=== PATIENT | male | born 1935 | race Caucasian/White ===

== ENCOUNTER 2022-07-22 00:43 | Outpatient (CLI) | payer MEDICARE, OTHER | END 2022-07-22 00:44 | disposition critical access hospital (66) | LOC: EMS 00:43 | DX: R53.1 Weakness (principal); R29.898 Other symptoms and signs involving the musculoskeletal system; Z74.09 Other reduced mobility | CPT/HCPCS: A0425; A0429 ==

== ENCOUNTER 2022-07-22 00:56 | Emergency (ER) | payer MEDICARE, OTHER ==
[2022-07-22] MEDS ORDERED: iohexoL-300 100 ML VIAL ONE (01:05)
[2022-07-22 01:11] LABS: BASOPHILS % (AUTO) 0.5 %; EOSINOPHILS # (AUTO) 0.2 10^3/uL (0.0-0.7); EOSINOPHILS % (AUTO) 2.5 %; HCT - HEMATOCRIT 34.5 % (42.0-52.0); HGB - HEMOGLOBIN 11.5 g/dL (14.0-18.0); LYMPHOCYTES # (AUTO) 1.7 10^3/uL (1.5-3.5); LYMPHOCYTES % (AUTO) 19.9 %; MEAN CORPUSCULAR HEMOGLOBIN 31.4 pg (27.0-31.0); MEAN CORPUSCULAR HGB CONC 33.3 g/dL (32.0-36.0); MEAN CORPUSCULAR VOLUME 94.3 fL (80.0-94.0); MEAN PLATELET VOLUME 13.4 fL (7.4-11.4); MONOCYTES % (AUTO) 11.9 %; NEUTROPHILS # (AUTO) 5.6 10^3/uL (1.5-6.6); NEUTROPHILS % (AUTO) 64.9 %; PLT - PLATELET COUNT 130 10^3/uL (130-450); RED BLOOD COUNT 3.66 10^6/uL (4.70-6.10); RED CELL DISTRIBUTION WIDTH 13.1 % (12.0-15.0); WHITE BLOOD COUNT 8.7 x10^3/uL (4.8-10.8)
--- OUTSIDE RECORDS SUMMARY | 2022-07-22 01:18 | EXTERNAL MEDICAL SUMMARY RPT | Continuity of Care Document ---
:1935 Author Organization [facility] Address [address] [place] [address] Phone Care Team Providers Name Role Phone Jean Miles Unavailable Unavailable Allergies and Intolerances date description facility type (no date) acetaminophen [facility] (unknown) (no date) hydrocodone [facility] (unknown) Encounters No information. Functional Status No information. Immunizations No information. Medications date description facility 2022-05-11 00:00 Metformin [facility] 2022-05-11 00:00 Clobetasol [facility] 2022-05-28 00:00 [facility] 2022-05-09 00:00 [facility] 2022-05-11 00:00 [facility] Problems date description facility 2022-05-09 00:00 Dizziness [facility] 2022-05-29 08:54 Monoclonal gammopathy [facility] 2022-05-29 09:42 Monoclonal gammopathy [facility] Procedures No information. Results/Labs test date author facility value unit interpret ation Result panel 1 (unknown) (no date) ([facility] Result panel 2 (unknown) (no date) (unknown[facility]) Result panel 3 (unknown) (no date) (unknown[facility]) Result panel 4 (unknown) (no date) (unknown[facility]) Result panel 5 (unknown) (no date) (unknown[facility]) Result panel 6 (unknown) (no date) (unknown[facility]) Result panel 7 (unknown) (no date) (unknown[facility]) Result panel 8 (unknown) (no date) (unknown[facility]) Result panel 9 (unknown) (no date) (unknown[facility]) Result panel 10 (unknown) (no date) (unknown[facility]) Result panel 11 (unknown) (no date) (unknown[facility]) Result panel 12 (unknown) (no date) (unknown[facility]) Result panel 13 (unknown) (no date) (unknown[facility]) Result panel 14 (unknown) (no date) (unknown[facility]) Result panel 15 (unknown) (no date) (unknown[facility]) Result panel 16 (unknown) (no date) (unknown[facility]) Result panel 17 (unknown) (no date) (unknown[facility]) Result panel 18 (unknown) (no date) (unknown[facility]) Result panel 19 (unknown) (no date) (unknown[facility]) Result panel 20 (unknown) (no date) (unknown[facility]) Result panel 21 (unknown) (no date) (unknown[facility]) Result panel 22 (unknown) (no date) (unknown[facility]) Result panel 23 (unknown) (no date) (unknown[facility]) Result panel 24 (unknown) (no date) (unknown[facility]) Result panel 25 (unknown) (no date) (unknown[facility]) Result panel 26 (unknown) (no date) (unknown[facility]) Result panel 27 (unknown) (no date) (unknown[facility]) Result panel 28 (unknown) (no date) (unknown[facility]) Result panel 29 (unknown) (no date) (unknown[facility] Result panel 30 (unknown) (no (unknown) (unknown) (no value) (units (unk nown) date) unknown) (unknown) (no (unknown) (unknown) <Electronically (units (unknown) date) signed by Heron unknown) MD Vanessa> (unknown) (no (unknown) (unknown) (DME) FreeStyle (units (unknown) date) Lite Strips Strip unknown) (unknown) (no (unknown) (unknown) (DME) pen needle, (units (unknown) date) diabetic [Easy unknown) Comfort Pen [place]] 31 gauge x 5/16' needle (unknown) (no (unknown) (unknown) (PreserVision (units ( unknown) date) AREDS) unknown) (unknown) (no (unknown) (unknown) 0.4 mg PO BID (units ( unknown) date) unknown) (unknown) (no (unknown) (unknown) 05/09/22 0956 (units ( unknown) date) unknown) (unknown) (no (unknown) (unknown) 05/09/22 (units (unkno wn) date) unknown) (unknown) (no (unknown) (unknown) 05:52 (units (unkno wn) date) unknown) (unknown) (no (unknown) (unknown) 1,000 mcg PO Q DAY (units (unknown) date) Qty: 0 unknown) (unknown) (no (unknown) (unknown) 1,000 mcg (units (unkn own) date) tablet,extended unknown) release (unknown) (no (unknown) (unknown) 1,000 mg PO BID (units (unknown) date) unknown) (unknown) (no (unknown) (unknown) 10 mg PO DAILY (units (unknown) date) Qty: 90 3RF unknown) (unknown) (no (unknown) (unknown) 100 mg PO DAILY (units (unknown) date) Qty: 90 0RF unknown) (unknown) (no (unknown) (unknown) 20 mg PO DAILY (units (unknown) date) Qty: 90 3RF unknown) (unknown) (no (unknown) (unknown) 25 mg PO BID (units (u nknown) date) unknown) (unknown) (no (unknown) (unknown) 25 mg PO QID PRN (units (unknown) date) (Reason: dizziness) unknown) Qty: 30 0RF (unknown) (no (unknown) (unknown) 4 mg PO Q8H PRN (units (unknown) date) (Reason: SINUS unknown) DRAINAGE) (unknown) (no (unknown) (unknown) 5 mg PO DAILY Qty: (units (unknown) date) 90 3RF unknown) (unknown) (no (unknown) (unknown) 516' (Easy (units (un known) date) Comfort Pen unknown) [place]) (unknown) (no (unknown) (unknown) 7 unit SUBCUT QAM (units (unknown) date) Qty: 15 3RF unknown) (unknown) (no (unknown) (unknown) 81 mg PO DAILY (units (unknown) date) unknown) (unknown) (no (unknown) (unknown) Acne (units (unkno wn) date) unknown) (unknown) (no (unknown) (unknown) Activity (units (unkno wn) date) Restrictions/Additi unknown) onal Instructions: (unknown) (no (unknown) (unknown) Age/Sex: 86 / M (units (unknown) date) unknown) (unknown) (no (unknown) (unknown) Allergic rhinitis (units (unknown) date) unknown) (unknown) (no (unknown) (unknown) Allergies (units (unkn own) date) unknown) (unknown) (no (unknown) (unknown) Allergy/AdvReac (units (unknown) date) Type Severity unknown) Reaction Status Date / Time (unknown) (no (unknown) (unknown) Auscultation: (units ( unknown) date) clear to unknown) auscultation bilaterally (unknown) (no (unknown) (unknown) BPH w urinary (units ( unknown) date) obs/LUTS unknown) (unknown) (no (unknown) (unknown) Back/Spine/Pelvis (units (unknown) date) unknown) (unknown) (no (unknown) (unknown) Back: normal to (units (unknown) date) inspection unknown) (unknown) (no (unknown) (unknown) Blood Pressure (units (unknown) date) 149/93 H 05/09/22 unknown) 05:52 (unknown) (no (unknown) (unknown) Blood Pressure (units (unknown) date) 149/93 H unknown) (unknown) (no (unknown) (unknown) Cardio (units (unkno wn) date) unknown) (unknown) (no (unknown) (unknown) Chest (units (unkno wn) date) unknown) (unknown) (no (unknown) (unknown) Chest: normal (units ( unknown) date) inspection of the unknown) chest (unknown) (no (unknown) (unknown) Chicken pox (units (un known) date) unknown) (unknown) (no (unknown) (unknown) Chief Complaint: (units (unknown) date) Dizziness unknown) (unknown) (no (unknown) (unknown) Chronic back pain (units (unknown) date) (-2017) unknown) (unknown) (no (unknown) (unknown) Chronic kidney (units (unknown) date) disease, stage 3b unknown) (unknown) (no (unknown) (unknown) Clinical (units (unkno wn) date) Impression: unknown) (unknown) (no (unknown) (unknown) Conjunctivae: (units ( unknown) date) conjunctivae normal unknown) (unknown) (no (unknown) (unknown) Const (units (unkno wn) date) unknown) (unknown) (no (unknown) (unknown) Continue current (units (unknown) date) medications. unknown) (unknown) (no (unknown) (unknown) Coordination: (units ( unknown) date) [id number] test unknown) normal (unknown) (no (unknown) (unknown) Coronary artery (units (unknown) date) disease unknown) (unknown) (no (unknown) (unknown) Course Narrative: (units (unknown) date) unknown) (unknown) (no (unknown) (unknown) Course (units (unkno wn) date) unknown) (unknown) (no (unknown) (unknown) Cranial Nerves: (units (unknown) date) CN's II-XI intact unknown) bilaterally (unknown) (no (unknown) (unknown) : 1935 (units (unknown) date) Acct:[id number] unknown) (unknown) (no (unknown) (unknown) Date of Service: (units (unknown) date) 05/09/22 unknown) (unknown) (no (unknown) (unknown) 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 unknown) (unknown) (no (unknown) (unknown) Departure (units (unkn own) date) unknown) (unknown) (no (unknown) (unknown) Diabetes mellitus (units (unknown) date) () unknown) (unknown) (no (unknown) (unknown) Discharge Plan (units (unknown) date) unknown) (unknown) (no (unknown) (unknown) Discontinued (units (u nknown) date) Medications unknown) (unknown) (no (unknown) (unknown) Dizziness (units (unkn own) date) unknown) (unknown) (no (unknown) (unknown) Documented By: OW (units (unknown) date) unknown) (unknown) (no (unknown) (unknown) EOM: EOM intact (units (unknown) date) bilaterally unknown) (unknown) (no (unknown) (unknown) ER Physician: (units ( unknown) date) Heron Mendez MD unknown) (unknown) (no (unknown) (unknown) Ears: hearing (units ( unknown) date) grossly normal unknown) bilaterally and TM's normal bilaterally (unknown) (no (unknown) (unknown) Effort + (units (unkno wn) date) Inspection: normal unknown) respiratory effort (unknown) (no (unknown) (unknown) Emergency Report (units (unknown) date) unknown) (unknown) (no (unknown) (unknown) Essential (units (unkn own) date) hypertension unknown) (unknown) (no (unknown) (unknown) Exam (units (unkno wn) date) unknown) (unknown) (no (unknown) (unknown) Extrem (units (unkno wn) date) unknown) (unknown) (no (unknown) (unknown) Eyes (units (unkno wn) date) unknown) (unknown) (no (unknown) (unknown) Face and sinus: (units (unknown) date) normal facial exam unknown) and sinuses nontender (unknown) (no (unknown) (unknown) GERD (units (unkno wn) date) (gastroesophageal unknown) reflux disease) (unknown) (no (unknown) (unknown) General (units (unkno wn) date) unknown) (unknown) (no (unknown) (unknown) General: Yes (units (u nknown) date) appearance normal, unknown) both eyes and all related structures (unknown) (no (unknown) (unknown) General: (units (unkno wn) date) cooperative, unknown) healthy appearing and comfortable (unknown) (no (unknown) (unknown) General: no rashes (units (unknown) date) or lesions noted unknown) (unknown) (no (unknown) (unknown) General: normal to (units (unknown) date) inspection unknown) (unknown) (no (unknown) (unknown) General: patient (units (unknown) date) alert, patient unknown) awake and patient oriented x3 (unknown) (no (unknown) (unknown) HENMT (units (o wn) date) unknown) (unknown) (no (unknown) (unknown) HPI - Dizziness (units (unknown) date) unknown) (unknown) (no (unknown) (unknown) HPI Narrative: (units (unknown) date) unknown) (unknown) (no (unknown) (unknown) He can stand and (units (unknown) date) walk. He is no unknown) nausea vomiting. He is no visual changes. He (unknown) (no (unknown) (unknown) He will be (units (n) date) discharged home unknown) with meclizine. (unknown) (no (unknown) (unknown) Head: normal to (units (unknown) date) inspection, unknown) normocephalic and atraumatic (unknown) (no (unknown) (unknown) Heart Sounds: S1 (units (unknown) date) normal, S2 normal unknown) and no murmurs (unknown) (no (unknown) (unknown) History of Present (units (unknown) date) Illness unknown) (unknown) (no (unknown) (unknown) History of (units (unk nown) date) cataract removal unknown) with insertion of prosthetic lens () (unknown) (no (unknown) (unknown) History of colon (units (unknown) date) polyps unknown) (unknown) (no (unknown) (unknown) Home Medications (units (unknown) date) unknown) (unknown) (no (unknown) (unknown) If symptoms (units (un known) date) worsen, follow-up unknown) with your doctor or return here. (unknown) (no (unknown) (unknown) Initial Vital (units ( unknown) date) Signs unknown) (unknown) (no (unknown) (unknown) Initial Vital (units ( unknown) date) Signs: unknown) (unknown) (no (unknown) (unknown) Instructions: DI (units (unknown) date) for unknown) Dizziness-Nonvertig o (unknown) (no (unknown) (unknown) [facility] (units (unknown) date) [address] unknown) [place] [address] (unknown) (no (unknown) (unknown) Jean Miles V, (units (unknown) date) [Primary Care unknown) Provider] (unknown) (no (unknown) (unknown) Lantus Solostar (units (unknown) date) U-100 Insulin 100 unknown) unit/mL (3 mL) insulin pen (unknown) (no (unknown) (unknown) Last Admin: (units (un known) date) 05/09/22 06:06 unknown) Dose: 25 mg (unknown) (no (unknown) (unknown) Limitations: no (units (unknown) date) limitations unknown) (unknown) (no (unknown) (unknown) Lite Strips) (units (u nknown) date) unknown) (unknown) (no (unknown) (unknown) [id number] (units (unk nown) date) unknown) (unknown) (no (unknown) (unknown) Measles (units (unkno wn) date) unknown) (unknown) (no (unknown) (unknown) Meclizine HCl (units ( unknown) date) (Meclizine Hcl 12.5 unknown) Mg Tablet) 25 mg PO NOW ONE (unknown) (no (unknown) (unknown) Meclizine every (units (unknown) date) 6-8 hours as needed unknown) for dizziness. (unknown) (no (unknown) (unknown) Medical History (units (unknown) date) (Reviewed 05/09/22 unknown) @ 09:51 by Heron Mendez MD) (unknown) (no (unknown) (unknown) Medication (units (unk nown) date) Instructions unknown) Recorded Confirmed (unknown) (no (unknown) (unknown) Medication (units (unk nown) date) Instructions unknown) Recorded (unknown) (no (unknown) (unknown) Mental Status: (units (unknown) date) mental status unknown) grossly normal (unknown) (no (unknown) (unknown) Mixed (units (unkno wn) date) hyperlipidemia unknown) (unknown) (no (unknown) (unknown) Mode of arrival: (units (unknown) date) Ambulatory unknown) (unknown) (no (unknown) (unknown) Motor: muscle tone (units (unknown) date) normal throughout unknown) (unknown) (no (unknown) (unknown) Mouth: oral (units (un known) date) mucosae normal unknown) (unknown) (no (unknown) (unknown) Mumps (units (unkno wn) date) unknown) (unknown) (no (unknown) (unknown) Neck (units (unkno wn) date) unknown) (unknown) (no (unknown) (unknown) Neck: normal (units (u nknown) date) visual inspection unknown) and No JVD (unknown) (no (unknown) (unknown) Neuro (units (unkno wn) date) unknown) (unknown) (no (unknown) (unknown) New (units (unkno wn) date) unknown) (unknown) (no (unknown) (unknown) No Action (units (unkn own) date) unknown) (unknown) (no (unknown) (unknown) Nose: external (units (unknown) date) nose normal and unknown) nares normal (unknown) (no (unknown) (unknown) Ordered: (units (unkno wn) date) unknown) (unknown) (no (unknown) (unknown) Orders (units (unkno wn) date) unknown) (unknown) (no (unknown) (unknown) Oxygen Delivery (units (unknown) date) Method 05/09/22 unknown) 05:52 (unknown) (no (unknown) (unknown) Oxygen Delivery (units (unknown) date) Method Room Air unknown) (unknown) (no (unknown) (unknown) PO (units (unkno wn) date) unknown) (unknown) (no (unknown) (unknown) Palpation: normal (units (unknown) date) PMI unknown) (unknown) (no (unknown) (unknown) Patient (units (unkno wn) date) Disposition: Home unknown) (unknown) (no (unknown) (unknown) Patient History (units (unknown) date) unknown) (unknown) (no (unknown) (unknown) Patient: (units (unkno wn) date) Konrad Barrett unknown) MR#: (unknown) (no (unknown) (unknown) Prescriptions: (units (unknown) date) unknown) (unknown) (no (unknown) (unknown) PreserVision AREDS (units (unknown) date) [phone] unknown) [id number] Capsule (unknown) (no (unknown) (unknown) Previous Rx's (units ( unknown) date) unknown) (unknown) (no (unknown) (unknown) 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 (unknown) (no (unknown) (unknown) Psych (units (unkno wn) date) unknown) (unknown) (no (unknown) (unknown) Pulse Oximetry 98 (units (unknown) date) 05/09/22 05:52 unknown) (unknown) (no (unknown) (unknown) Pulse Oximetry 98 (units (unknown) date) unknown) (unknown) (no (unknown) (unknown) Pulse Rate 57 L (units (unknown) date) 05/09/22 05:52 unknown) (unknown) (no (unknown) (unknown) Pulse Rate 57 L (units (unknown) date) unknown) (unknown) (no (unknown) (unknown) Pupils: PERRL (units ( unknown) date) unknown) (unknown) (no (unknown) (unknown) ROS Unobtainable: (units (unknown) date) All systems unknown) reviewed + are unremarkable except as noted in HPI (unknown) (no (unknown) (unknown) Rate: regular rate (units (unknown) date) unknown) (unknown) (no (unknown) (unknown) Recurrent (units (unkn own) date) sinusitis unknown) (unknown) (no (unknown) (unknown) Referrals: (units (unk nown) date) unknown) (unknown) (no (unknown) (unknown) Related Data (units (u nknown) date) unknown) (unknown) (no (unknown) (unknown) Resp (units (unkno wn) date) unknown) (unknown) (no (unknown) (unknown) Respiratory Rate (units (unknown) date) 20 05/09/22 05:52 unknown) (unknown) (no (unknown) (unknown) Respiratory Rate (units (unknown) date) 20 unknown) (unknown) (no (unknown) (unknown) Review of Systems (units (unknown) date) unknown) (unknown) (no (unknown) (unknown) Rhythm: regular (units (unknown) date) rhythm unknown) (unknown) (no (unknown) (unknown) Rx Instructions: (units (unknown) date) unknown) (unknown) (no (unknown) (unknown) See Rx (units (unkno wn) date) Instructions .Route unknown) Qty: 100 1RF (unknown) (no (unknown) (unknown) See Rx (units (unkno wn) date) Instructions .Route unknown) Qty: 100 3RF (unknown) (no (unknown) (unknown) Sensory Exam: no (units (unknown) date) sensory deficits unknown) noted (unknown) (no (unknown) (unknown) Signed By: (units (unk nown) date) unknown) (unknown) (no (unknown) (unknown) Skin cancer (units (un known) date) (-2015) unknown) (unknown) (no (unknown) (unknown) Skin (units (unkno wn) date) unknown) (unknown) (no (unknown) (unknown) Smoking Status: (units (unknown) date) Former smoker unknown) (unknown) (no (unknown) (unknown) Social History (units (unknown) date) (Reviewed 05/09/22 unknown) @ 09:51 by Heron Mendez MD) (unknown) (no (unknown) (unknown) Solostar U-100 (units (unknown) date) Insulin) unknown) (unknown) (no (unknown) (unknown) Source: patient (units (unknown) date) unknown) (unknown) (no (unknown) (unknown) Speech: speech (units (unknown) date) normal unknown) (unknown) (no (unknown) (unknown) Stand Alone Forms: (units (unknown) date) Patient Portal/API unknown) (unknown) (no (unknown) (unknown) Stated Complaint: (units (unknown) date) vertigo unknown) (unknown) (no (unknown) (unknown) Stop: 05/09/22 (units (unknown) date) 06:04 unknown) (unknown) (no (unknown) (unknown) Substance Use (units ( unknown) date) Type: does not use unknown) (unknown) (no (unknown) (unknown) Surgical History (units (unknown) date) (Reviewed 05/09/22 unknown) @ 09:51 by Heron Mendez MD) (unknown) (no (unknown) (unknown) Symptoms have (units ( unknown) date) resolved with a unknown) single dose of meclizine. He is now asymptomatic. (unknown) (no (unknown) (unknown) Temperature 97.6 F (units (unknown) date) 05/09/22 05:52 unknown) (unknown) (no (unknown) (unknown) Temperature 97.6 F (units (unknown) date) unknown) (unknown) (no (unknown) (unknown) The patient did an (units (unknown) date) aggressive ear unknown) cleaning 4 days ago. 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 (unknown) (no (unknown) (unknown) Vital Signs - 8 hr (units (unknown) date) unknown) (unknown) (no (unknown) (unknown) Vital Signs (units (un known) date) unknown) (unknown) (no (unknown) (unknown) Vital signs: (units (u nknown) date) unknown) (unknown) (no (unknown) (unknown) acetaminophen (units ( unknown) date) [From Vicodin] unknown) AdvReac Severe ITCHING Verified 05/09/22 05:57 (unknown) (no (unknown) (unknown) alcohol intake (units (unknown) date) frequency: 0-2 unknown) drinks per day (unknown) (no (unknown) (unknown) amlodipine 10 mg (units (unknown) date) tablet 10 mg PO unknown) DAILY #90 tabs 12/18/21 (unknown) (no (unknown) (unknown) amlodipine 10 mg (units (unknown) date) tablet unknown) (unknown) (no (unknown) (unknown) and below (units (unkn own) date) unknown) (unknown) (no (unknown) (unknown) aspirin 81 mg (units ( unknown) date) tablet,delayed 81 unknown) mg PO DAILY 11/11/17 04/11/22 (unknown) (no (unknown) (unknown) aspirin (units (unkno wn) date) [Aspir-Low] 81 mg unknown) Tablet,Delayed Release (Dr/Ec) (unknown) (no (unknown) (unknown) bleeding from his (units (unknown) date) ears. He denies unknown) sinus congestion, rhinorrhea, or sore throat. (unknown) (no (unknown) (unknown) blood sugar (units (un known) date) diagnostic unknown) (FreeStyle #100 ea 08/23/21 (unknown) (no (unknown) (unknown) carvedilol 25 mg (units (unknown) date) tablet 25 mg PO BID unknown) 12/08/21 04/11/22 (unknown) (no (unknown) (unknown) carvedilol 25 mg (units (unknown) date) tablet unknown) (unknown) (no (unknown) (unknown) chlorpheniramine (units (unknown) date) maleate 4 mg 4 mg unknown) PO Q8H PRN SINUS DRAINAGE 05/20/18 04/11/22 (unknown) (no (unknown) (unknown) chlorpheniramine (units (unknown) date) maleate unknown) [Chlor-Trimeton] 4 mg Tablet (unknown) (no (unknown) (unknown) cyanocobalamin (units (unknown) date) (vitamin B-12) unknown) 1,000 MCG tablet extended release (unknown) (no (unknown) (unknown) cyanocobalamin (units (unknown) date) (vitamin B-12) unknown) 1,000 mcg PO Q DAY ##0 05/17/16 04/11/22 (unknown) (no (unknown) (unknown) daily (units (unkno wn) date) unknown) (unknown) (no (unknown) (unknown) household members: (units (unknown) date) spouse unknown) (unknown) (no (unknown) (unknown) hydrocodone [From (units (unknown) date) Vicodin] AdvReac unknown) Severe ITCHING Verified 05/09/22 05:57 (unknown) (no (unknown) (unknown) insulin glargine (units (unknown) date) 100 unit/mL (3 7 unknown) unit (0.07 mL) SUBCUT QAM #15 mL 08/23/21 (unknown) (no (unknown) (unknown) is no confusion. (units (unknown) date) No focal weakness unknown) or numbness. He denies chest pain or (unknown) (no (unknown) (unknown) is no other (units (un known) date) symptoms unknown) (unknown) (no (unknown) (unknown) losartan 100 mg (units (unknown) date) tablet (Cozaar) 100 unknown) mg PO DAILY #90 tabs 03/05/22 (unknown) (no (unknown) (unknown) losartan [Cozaar] (units (unknown) date) 100 mg tablet unknown) (unknown) (no (unknown) (unknown) mL) subcutaneous (units (unknown) date) pen (Lantus unknown) (unknown) (no (unknown) (unknown) meclizine 25 mg (units (unknown) date) tablet 25 mg PO QID unknown) PRN dizziness #30 tabs 05/09/22 (unknown) (no (unknown) (unknown) meclizine 25 mg (units (unknown) date) tablet unknown) (unknown) (no (unknown) (unknown) metformin 1,000 mg (units (unknown) date) tablet 1,000 mg PO unknown) BID 12/08/21 04/11/22 (unknown) (no (unknown) (unknown) metformin 1,000 mg (units (unknown) date) tablet unknown) (unknown) (no (unknown) (unknown) night, after (units (u nknown) date) cleaning his ears. unknown) He is no ear pain. There is no drainage or (unknown) (no (unknown) (unknown) omeprazole 20 mg (units (unknown) date) capsule,delayed 20 unknown) mg PO DAILY #90 caps 12/11/21 (unknown) (no (unknown) (unknown) omeprazole 20 mg (units (unknown) date) capsule,delayed unknown) release(DR/EC) (unknown) (no (unknown) (unknown) palpitations. No (units (unknown) date) chronic issues with unknown) dizziness. He denies fever or chills. He (unknown) (no (unknown) (unknown) pen needle, (units (un known) date) diabetic 31 gauge x unknown) #100 ea 01/02/22 (unknown) (no (unknown) (unknown) release (units (unkno wn) date) (Aspir-Low) unknown) (unknown) (no (unknown) (unknown) release (units (unkno wn) date) unknown) (unknown) (no (unknown) (unknown) rosuvastatin 5 mg (units (unknown) date) tablet (Crestor) 5 unknown) mg PO DAILY #90 tabs 12/08/21 (unknown) (no (unknown) (unknown) rosuvastatin (units (u nknown) date) [Crestor] 5 mg unknown) tablet (unknown) (no (unknown) (unknown) tablet (units (unkno wn) date) (Chlor-Trimeton) unknown) (unknown) (no (unknown) (unknown) tamsulosin 0.4 mg (units (unknown) date) capsule (Flomax) unknown) 0.4 mg PO BID 11/11/17 04/11/22 (unknown) (no (unknown) (unknown) tamsulosin (units (unk nown) date) [Flomax] 0.4 mg unknown) Capsule,Extended Release 24hr (unknown) (no (unknown) (unknown) twice daily (units (un known) date) unknown) (unknown) (no (unknown) (unknown) unit-226 mg-200 (units (unknown) date) unit capsule unknown) (unknown) (no (unknown) (unknown) vitamins (units (unkno wn) date) A,C,V-odmb-vimyyd unknown) 14,320 cap PO 11/29/21 04/11/22 Result panel 31 (unknown) (no (unknown) (unknown) (no value) (units (unk nown) date) unknown) (unknown) (no (unknown) (unknown) / (units (unkno wn) date) unknown) (unknown) (no (unknown) (unknown) 0 (units (unkno wn) date) unknown) (unknown) (no (unknown) (unknown) 05/10/22 (units (unkno wn) date) unknown) (unknown) (no (unknown) (unknown) 04/06/22 (units (unkno wn) date) unknown) (unknown) (no (unknown) (unknown) 06/27 (units (unkno wn) date) unknown) (unknown) (no (unknown) (unknown) (units (unkno wn) date) unknown) (unknown) (no (unknown) (unknown) AWV 12/08/2021 (units (u nknown) date) unknown) (unknown) (no (unknown) (unknown) Acne (units (unkno wn) date) unknown) (unknown) (no (unknown) (unknown) Age/Sex: 86 / M (units (unknown) date) Date of Service: unknown) (unknown) (no (unknown) (unknown) Alanine (units (unkno wn) date) Aminotransferase unknown) (ALT/SGPT) 16 IU/L (<50) (unknown) (no (unknown) (unknown) Albumin 3.8 g/dL (units (unknown) date) (3.5-5.0) 04/06/22 unknown) (unknown) (no (unknown) (unknown) Albumin/Globulin (units (unknown) date) Ratio 1.4 (1.0-2.8) unknown) 04/06/22 (unknown) (no (unknown) (unknown) Alkaline (units (unkno wn) date) Phosphatase 66 U/L unknown) (38-126) 04/06/22 (unknown) (no (unknown) (unknown) All systems (units (un known) date) reviewed + are unknown) unremarkable except as noted in HPI and below (unknown) (no (unknown) (unknown) Allergic rhinitis (units (unknown) date) unknown) (unknown) (no (unknown) (unknown) Allergic rhinitis: (units (unknown) date) The patient states unknown) symptoms are controlled with nasal saline. (unknown) (no (unknown) (unknown) Allergies (units (unkn own) date) unknown) (unknown) (no (unknown) (unknown) [place], [place] (units ( unknown) date) [id number] unknown) (unknown) (no (unknown) (unknown) Aspartate Amino (units (unknown) date) Transf (AST/SGOT) unknown) 19 IU/L (17-59) 04/06/ (unknown) (no (unknown) (unknown) Attending Dr: (units ( unknown) date) Jean Miles MD unknown) (unknown) (no (unknown) (unknown) BPH w urinary (units ( unknown) date) obs/LUTS unknown) (unknown) (no (unknown) (unknown) BUN/Creatinine (units (unknown) date) Ratio 17.6 (6-22) unknown) 04/06/22 (unknown) (no (unknown) (unknown) Basophils (%) (units ( unknown) date) (Auto) 0.5 % (0-2) unknown) 11/20/21 (unknown) (no (unknown) (unknown) Benign prostatic (units (unknown) date) hyperplasia: The unknown) patient reports symptoms are controlled on (unknown) (no (unknown) (unknown) Blood Urea (units (unk nown) date) Nitrogen 24 mg/dL unknown) (9-20) H 04/06/22 (unknown) (no (unknown) (unknown) CARDIOVASCULAR: (units (unknown) date) Regular rate and unknown) rhythm with occasional ectopy without murmurs, (unknown) (no (unknown) (unknown) Calcium Level 8.7 (units (unknown) date) mg/dL (8.4-10.2) unknown) 04/06/22 (unknown) (no (unknown) (unknown) Carbon Dioxide (units (unknown) date) Level 24 mmol/L unknown) (22-32) 04/06/22 (unknown) (no (unknown) (unknown) Chicken pox (units (un known) date) unknown) (unknown) (no (unknown) (unknown) Chief Complaint (units (unknown) date) unknown) (unknown) (no (unknown) (unknown) Chief Complaint: (units (unknown) date) ER followup unknown) (unknown) (no (unknown) (unknown) Chloride Level 105 (units (unknown) date) mmol/L (98-107) unknown) 04/06/22 (unknown) (no (unknown) (unknown) Chronic back pain (units (unknown) date) (-2018) unknown) (unknown) (no (unknown) (unknown) Chronic kidney (units (unknown) date) disease, stage 3b unknown) (unknown) (no (unknown) (unknown) Chronic kidney (units (unknown) date) disease, stage 3b: unknown) The patient has long-standing stable chronic (unknown) (no (unknown) (unknown) [facility] (units (unk nown) date) Results- Last: unknown) (unknown) (no (unknown) (unknown) Const (units (unkno wn) date) unknown) (unknown) (no (unknown) (unknown) Coronary artery (units (unknown) date) disease unknown) (unknown) (no (unknown) (unknown) Coronary artery (units (unknown) date) disease: The unknown) patient presents for follow-up of coronary artery (unknown) (no (unknown) (unknown) Course Narrative: (units (unknown) date) unknown) (unknown) (no (unknown) (unknown) Creatinine 1.36 (units (unknown) date) mg/dL (0.66-1.25) H unknown) 04/06/22 (unknown) (no (unknown) (unknown) DERMATOLOGIC: No (units (unknown) date) rashes or skin unknown) lesions. 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 unknown) (unknown) (no (unknown) (unknown) Details: (units (unkno wn) date) unknown) (unknown) (no (unknown) (unknown) Diabetes mellitus (units (unknown) date) () unknown) (unknown) (no (unknown) (unknown) Diabetes mellitus: (units (unknown) date) The patient states unknown) he is doing well. Complications of (unknown) (no (unknown) (unknown) Documented By: (units (unknown) date) Jean Miles MD unknown) 05/11/22 0654 (unknown) (no (unknown) (unknown) Draft (units (unkno wn) date) unknown) (unknown) (no (unknown) (unknown) ENT: Mucous (units (un known) date) membranes pink and unknown) moist. (unknown) (no (unknown) (unknown) ER followup: The (units (unknown) date) patient was seen at [facility] on 05/09/2021, presenting (unknown) (no (unknown) (unknown) EXTREMITIES: No (units (unknown) date) clubbing, cyanosis, unknown) or edema. (unknown) (no (unknown) (unknown) EYES: Pupils equal (units (unknown) date) round and reactive. unknown) Extraocular motions intact. No scleral (unknown) (no (unknown) (unknown) Eosinophils (%) (units (unknown) date) (Auto) 2.4 % (2-4) unknown) 11/20/21 (unknown) (no (unknown) (unknown) Essential (units (unkn own) date) hypertension unknown) (unknown) (no (unknown) (unknown) Estimat Glomerular (units (unknown) date) Filtration Rate 51 unknown) mL/min (>60) L 04/06 (unknown) (no (unknown) (unknown) Exam Narrative (units (unknown) date) unknown) (unknown) (no (unknown) (unknown) Exam Narrative: (units (unknown) date) unknown) (unknown) (no (unknown) (unknown) Exam (units (unkno wn) date) unknown) (unknown) (no (unknown) (unknown) 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 (unknown) (no (unknown) (unknown) [facility]) (unknown) (no (unknown) (unknown) GASTROINTESTINAL: (units (unknown) date) Abdomen soft, unknown) non-tender, nondistended. (unknown) (no (unknown) (unknown) GENERAL: This is a (units (unknown) date) well-nourished, unknown) well-developed patient, in no apparent (unknown) (no (unknown) (unknown) GERD (units (unkno wn) date) (gastroesophageal unknown) reflux disease) (unknown) (no (unknown) (unknown) Gastroesophageal (units (unknown) date) reflux disease: The unknown) patient denies abdominal or flank pain, (unknown) (no (unknown) (unknown) Globulin 2.8 g/dL (units (unknown) date) (1.7-4.1) 04/06/22 unknown) (unknown) (no (unknown) (unknown) Glucose Level 134 (units (unknown) date) mg/dL (80-110) H unknown) 04/06/22 (unknown) (no (unknown) (unknown) HPI Narrative: (units (unknown) date) unknown) (unknown) (no (unknown) (unknown) HPI (units (unkno wn) date) unknown) (unknown) (no (unknown) (unknown) He notes (units (unkno wn) date) occasional unknown) excessive salivation. (unknown) (no (unknown) (unknown) Hematocrit 35.4 % (units (unknown) date) (41-53) L 01/02/22 unknown) (unknown) (no (unknown) (unknown) Hemoglobin 12.2 (units (unknown) date) g/dL (13.5-17.5) L unknown) 01/02/22 (unknown) (no (unknown) (unknown) Hemoglobin A1c 6.7 (units (unknown) date) % (4.0-6.0) H unknown) 04/06/22 (unknown) (no (unknown) (unknown) His last (units ( wn) date) hemoglobin A1C was unknown) 6.7% on 04/06/2022. (unknown) (no (unknown) (unknown) History of (units (unk nown) date) cataract removal unknown) with insertion of prosthetic lens () (unknown) (no (unknown) (unknown) History of colon (units (unknown) date) polyps unknown) (unknown) (no (unknown) (unknown) History of colon (units (unknown) date) polyps: The patient unknown) has a history of colon polyps, s/p (unknown) (no (unknown) (unknown) Hyperlipidemia: (units (unknown) date) The present unknown) medications include rosuvastatin. The patient (unknown) (no (unknown) (unknown) Hypertension: The (units (unknown) date) patient is unknown) currently on amlodipine, carvedilol, losartan and (unknown) (no (unknown) (unknown) ITCHING (units (unkno wn) date) unknown) (unknown) (no (unknown) (unknown) Intake (units (unkno wn) date) unknown) (unknown) (no (unknown) (unknown) Internal Medicine (units (unknown) date) Office Visit unknown) (unknown) (no (unknown) (unknown) Lab Results (units (un known) date) unknown) (unknown) (no (unknown) (unknown) Loc: [facility] (units (unkno wn) date) unknown) (unknown) (no (unknown) (unknown) Lymphocytes (%) (units (unknown) date) (Auto) 24.2 % unknown) (25-40) L 11/20/21 (unknown) (no (unknown) (unknown) [id number] (units (unk nown) date) unknown) (unknown) (no (unknown) (unknown) 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 (unknown) (no (unknown) (unknown) MUSCULOSKELETAL: (units (unknown) date) Left knee with unknown) FROM, no swelling, warmth, erythema or effusion. (unknown) (no (unknown) (unknown) Mean Corpuscular (units (unknown) date) Hemoglobin 31.3 PG unknown) (26-34) 01/02/22 (unknown) (no (unknown) (unknown) Mean Corpuscular (units (unknown) date) Hemoglobin Concent unknown) 34.4 % (30-36) 12/06 (unknown) (no (unknown) (unknown) Mean Corpuscular (units (unknown) date) Volume 91.0 fL unknown) (80-100) 01/02/22 (unknown) (no (unknown) (unknown) Measles (units (unkno wn) date) unknown) (unknown) (no (unknown) (unknown) Medical History (units (unknown) date) (Reviewed 05/11/22 unknown) @ 06:56 by Jean Miles MD) (unknown) (no (unknown) (unknown) Mixed (units (unkno wn) date) hyperlipidemia unknown) (unknown) (no (unknown) (unknown) Monocytes (%) (units ( unknown) date) (Auto) 10.8 % unknown) (3-14) 11/20/21 (unknown) (no (unknown) (unknown) Mumps (units (unkno wn) date) unknown) (unknown) (no (unknown) (unknown) NECK: Trachea (units ( unknown) date) midline. No JVD, unknown) bruits or lymphadenopathy. Supple, nontender, no (unknown) (no (unknown) (unknown) NEUROLOGIC: Alert, (units (unknown) date) oriented, speech unknown) fluent, full upper and lower motor strength, (unknown) (no (unknown) (unknown) Neutrophils # (units ( unknown) date) (Auto) 4400 /uL unknown) ([id number]) 11/20/21 (unknown) (no (unknown) (unknown) Neutrophils (%) (units (unknown) date) (Auto) 62.1 % unknown) (50-75) 11/20/21 (unknown) (no (unknown) (unknown) Osteoarthritis: (units (unknown) date) The patient has unknown) arthritis involving the left knee and states (unknown) (no (unknown) (unknown) PFSH (units (unkno wn) date) unknown) (unknown) (no (unknown) (unknown) Patient: (units (unkno wn) date) Konrad Barrett unknown) MR#: (unknown) (no (unknown) (unknown) Platelet Count 107 (units (unknown) date) X103/uL (150-400) L unknown) 01/02/22 (unknown) (no (unknown) (unknown) Potassium Level (units (unknown) date) 4.1 mmol/L unknown) (3.4-5.1) 04/06/22 (unknown) (no (unknown) (unknown) 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 unknown) (unknown) (no (unknown) (unknown) ROS (units (unkno wn) date) unknown) (unknown) (no (unknown) (unknown) Reason For Visit (units (unknown) date) unknown) (unknown) (no (unknown) (unknown) Recurrent (units (unkn own) date) sinusitis unknown) (unknown) (no (unknown) (unknown) Red Blood Count (units (unknown) date) 3.89 X106/uL unknown) (4.5-5.9) L 01/02/22 (unknown) (no (unknown) (unknown) Red Cell (units (unkno wn) date) Distribution Width unknown) 13.3 % (11.6-14.8) 01/02/22 (unknown) (no (unknown) (unknown) Signed By: (units (unk nown) date) unknown) (unknown) (no (unknown) (unknown) Skin cancer (units (un known) date) (-2016) unknown) (unknown) (no (unknown) (unknown) Smoking Status: (units (unknown) date) Former smoker unknown) (unknown) (no (unknown) (unknown) Social History (units (unknown) date) unknown) (unknown) (no (unknown) (unknown) Sodium Level 141 (units (unknown) date) mmol/L (137-145) unknown) 04/06/22 (unknown) (no (unknown) (unknown) Surgical History (units (unknown) date) (Reviewed 05/11/22 unknown) @ 06:56 by Jean Miles MD) (unknown) (no (unknown) (unknown) Symptoms have (units ( unknown) date) resolved with a unknown) single dose of meclizine.? He is now (unknown) (no (unknown) (unknown) The patient did an (units (unknown) date) aggressive ear unknown) cleaning 4 days ago.? He became dizzy that (unknown) (no (unknown) (unknown) There have been no (units (unknown) date) episodes of unknown) hypoglycemia.? 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 (unknown) (no (unknown) (unknown) Urine Creatinine (units (unknown) date) 60.8 mg/dL 04/06/22 unknown) (unknown) (no (unknown) (unknown) Urine (units (unkno wn) date) Microalbumin/Creati unknown) nine Ratio 618.4 ug/mg CR (<30) H (unknown) (no (unknown) (unknown) Urine Random (units (u nknown) date) Microalbumin 37.6 unknown) mg/dL (0-1.6) H 04/06/22 (unknown) (no (unknown) (unknown) Visit Reasons: IH (units (unknown) date) ER F/U for unknown) dizziness (unknown) (no (unknown) (unknown) White Blood Count (units (unknown) date) 7.1 X103/uL unknown) (4.5-11.0) 01/02/22 (unknown) (no (unknown) (unknown) acetaminophen (units ( unknown) date) [From Vicodin] unknown) Adverse Reaction (Severe, Verified 05/09/22 05:57) (unknown) (no (unknown) (unknown) anorexia, nausea (units (unknown) date) or vomiting, unknown) dysphagia, change in bowel habits or black or (unknown) (no (unknown) (unknown) are in the (units (unk nown) date) 140/60s. The unknown) patient is tolerating the medication without side (unknown) (no (unknown) (unknown) asymptomatic.? He (units (unknown) date) will be discharged unknown) home with meclizine. (unknown) (no (unknown) (unknown) bleeding from his (units (unknown) date) ears.? He denies unknown) sinus congestion, rhinorrhea, or sore (unknown) (no (unknown) (unknown) bloody stools. The (units (unknown) date) patient states that unknown) is well-controlled. He is currently (unknown) (no (unknown) (unknown) burning in the (units (unknown) date) feet.? The patient unknown) has been compliant with diabetic medication.? (unknown) (no (unknown) (unknown) changes.? He is no (units (unknown) date) confusion.? No unknown) focal weakness or numbness.? He denies chest (unknown) (no (unknown) (unknown) chills.? He is no (units (unknown) date) other symptoms unknown) (unknown) (no (unknown) (unknown) colonoscopy 4-5 (units (unknown) date) years ago, unknown) declining further given his age. (unknown) (no (unknown) (unknown) compliance with (units (unknown) date) metformin and unknown) Lantus insulin, diet and exercise have been good. (unknown) (no (unknown) (unknown) current therapy (units (unknown) date) with tamsulosin, unknown) with nocturia x 2, and mild urinary frequency, (unknown) (no (unknown) (unknown) diabetes mellitus (units (unknown) date) include CAD and unknown) dyslipidemia.? The patient denies symptoms (unknown) (no (unknown) (unknown) disease that is (units (unknown) date) long-standing, and unknown) states he feels fatigued and short of breath (unknown) (no (unknown) (unknown) distress. (units (unkn own) date) unknown) (unknown) (no (unknown) (unknown) effects reported, (units (unknown) date) and denies unknown) exertional or other chest pain, dyspnea, orthopnea, (unknown) (no (unknown) (unknown) gallops, or rubs. (units (unknown) date) unknown) (unknown) (no (unknown) (unknown) have occurred. If (units (unknown) date) there are any unknown) questions, please contact the Medical Records (unknown) (no (unknown) (unknown) household members: (units (unknown) date) spouse unknown) (unknown) (no (unknown) (unknown) hydrocodone [From (units (unknown) date) Vicodin] Adverse unknown) Reaction (Severe, Verified 05/09/22 05:57) (unknown) (no (unknown) (unknown) icterus. No (units (un known) date) injection or unknown) drainage. (unknown) (no (unknown) (unknown) includes coronary (units (unknown) date) stenting in 2000.? unknown) The patient reports good compliance with (unknown) (no (unknown) (unknown) including (units (unkn own) date) polyuria, unknown) polydipsia, vision changes, or increasing numbness or (unknown) (no (unknown) (unknown) kidney disease.? (units (unknown) date) The GFR is 51 unknown) ml/min and baseline creatinine 1.36 mg/dL and are (unknown) (no (unknown) (unknown) lightheadedness, (units (unknown) date) palpitations, or unknown) lower extremity swelling. Pertinent history (unknown) (no (unknown) (unknown) may occur. (units (unk nown) date) Occasional unknown) wrong-word or 'sound-alike' substitutions may have (unknown) (no (unknown) (unknown) medications. (units (u nknown) date) unknown) (unknown) (no (unknown) (unknown) meningeal signs. (units (unknown) date) unknown) (unknown) (no (unknown) (unknown) night, after (units (u nknown) date) cleaning his ears.? unknown) He is no ear pain.? There is no drainage or (unknown) (no (unknown) (unknown) no focal deficits (units (unknown) date) evident. unknown) (unknown) (no (unknown) (unknown) occurred due to (units (unknown) date) the inherent unknown) limitations of voice recognition software. Please (unknown) (no (unknown) (unknown) off HCTZ (due to (units (unknown) date) MATT) for blood unknown) pressure control.?he states home blood pressures (unknown) (no (unknown) (unknown) pain or (units (unkno wn) date) palpitations.? No unknown) chronic issues with dizziness.? He denies fever or (unknown) (no (unknown) (unknown) paroxysmal (units (unk nown) date) nocturnal dyspnea, unknown) pedal edema, or TIA symptoms. (unknown) (no (unknown) (unknown) present. (units (unkno wn) date) unknown) (unknown) (no (unknown) (unknown) read the note (units ( unknown) date) carefully and unknown) recognize, using context, where these substitutions (unknown) (no (unknown) (unknown) reporting []. (units ( unknown) date) unknown) (unknown) (no (unknown) (unknown) reports good (units (u nknown) date) compliance and unknown) denies any chest pain, exertional or otherwise. (unknown) (no (unknown) (unknown) software. Although (units (unknown) date) every effort is unknown) made to edit content, student services coordinator errors (unknown) (no (unknown) (unknown) stable.? The (units (u nknown) date) patient denies unknown) taking nonsteroidal anti-inflammatory drugs at (unknown) (no (unknown) (unknown) symptoms are (units (u nknown) date) currently unknown) controlled with a flare in the past week since resolved. (unknown) (no (unknown) (unknown) taking omeprazole (units (unknown) date) for unknown) gastroesophageal reflux disease at this time. (unknown) (no (unknown) (unknown) throat.? He can (units (unknown) date) stand and walk.? He unknown) is no nausea vomiting.? He is no visual (unknown) (no (unknown) (unknown) urgency and (units (un known) date) hesitancy. He is unknown) followed by Dr. Pily Mendez. (unknown) (no (unknown) (unknown) with activity, (units (unknown) date) similar to prior to unknown) stenting in 2000. He denies chest pain, (unknown) (no (unknown) (unknown) with dizziness (units (unknown) date) after an aggressive unknown) ear cleaning four days prior, and diagnosed (unknown) (no (unknown) (unknown) with vertigo, (units ( unknown) date) discharged on unknown) meclizine. The patient presents in followup Result panel 32 (unknown) (no (unknown) (unknown) (no value) (units (unk nown) date) unknown) (unknown) (no (unknown) (unknown) / (units (unkno wn) date) unknown) (unknown) (no (unknown) (unknown) (units (unkno wn) date) unknown) (unknown) (no (unknown) (unknown) 05/11/22 (units (unkno wn) date) unknown) (unknown) (no (unknown) (unknown) 05/11/22] (units (unkn own) date) unknown) (unknown) (no (unknown) (unknown) 01/02/22 [Rx (units (u nknown) date) Confirmed 05/11/22] unknown) (unknown) (no (unknown) (unknown) 04/06/22 (units (unkno wn) date) unknown) (unknown) (no (unknown) (unknown) 06/27 (units (unkno wn) date) unknown) (unknown) (no (unknown) (unknown) (units (unkno wn) date) unknown) (unknown) (no (unknown) (unknown) AREDS) cap PO (units ( unknown) date) 11/29/21 [History unknown) Confirmed 05/11/22] (unknown) (no (unknown) (unknown) AWV 12/08/2021 (units (u nknown) date) unknown) (unknown) (no (unknown) (unknown) Acne (units (unkno wn) date) unknown) (unknown) (no (unknown) (unknown) Age/Sex: 86 / M (units (unknown) date) Date of Service: unknown) (unknown) (no (unknown) (unknown) Alanine (units (unkno wn) date) Aminotransferase unknown) (ALT/SGPT) 16 IU/L (<50) (unknown) (no (unknown) (unknown) Albumin 3.8 g/dL (units (unknown) date) (3.5-5.0) 04/06/22 unknown) (unknown) (no (unknown) (unknown) Albumin/Globulin (units (unknown) date) Ratio 1.4 (1.0-2.8) unknown) 04/06/22 (unknown) (no (unknown) (unknown) Alkaline (units (unkno wn) date) Phosphatase 66 U/L unknown) (38-126) 04/06/22 (unknown) (no (unknown) (unknown) All systems (units (un known) date) reviewed + are unknown) unremarkable except as noted in HPI and below (unknown) (no (unknown) (unknown) Allergic rhinitis (units (unknown) date) unknown) (unknown) (no (unknown) (unknown) Allergic rhinitis: (units (unknown) date) The patient states unknown) symptoms are controlled with nasal saline. (unknown) (no (unknown) (unknown) Allergies (units (unkn own) date) unknown) (unknown) (no (unknown) (unknown) [place], [place] (units ( unknown) date) [id number] unknown) (unknown) (no (unknown) (unknown) Aspartate Amino (units (unknown) date) Transf (AST/SGOT) unknown) 19 IU/L (17-59) 04/06/ (unknown) (no (unknown) (unknown) Attending Dr: (units ( unknown) date) Jean Miles MD unknown) (unknown) (no (unknown) (unknown) BPH w urinary (units ( unknown) date) obs/LUTS unknown) (unknown) (no (unknown) (unknown) BUN/Creatinine (units (unknown) date) Ratio 17.6 (6-22) unknown) 04/06/22 (unknown) (no (unknown) (unknown) Basophils (%) (units ( unknown) date) (Auto) 0.5 % (0-2) unknown) 11/20/21 (unknown) (no (unknown) (unknown) Benign prostatic (units (unknown) date) hyperplasia: The unknown) patient reports symptoms are controlled on (unknown) (no (unknown) (unknown) Blood Urea (units (unk nown) date) Nitrogen 24 mg/dL unknown) (9-20) H 04/06/22 (unknown) (no (unknown) (unknown) CARDIOVASCULAR: (units (unknown) date) Regular rate and unknown) rhythm with occasional ectopy without murmurs, (unknown) (no (unknown) (unknown) Calcium Level 8.7 (units (unknown) date) mg/dL (8.4-10.2) unknown) 04/06/22 (unknown) (no (unknown) (unknown) Carbon Dioxide (units (unknown) date) Level 24 mmol/L unknown) (22-32) 04/06/22 (unknown) (no (unknown) (unknown) Chicken pox (units (un known) date) unknown) (unknown) (no (unknown) (unknown) Chief Complaint (units (unknown) date) unknown) (unknown) (no (unknown) (unknown) Chief Complaint: (units (unknown) date) ER followup unknown) (unknown) (no (unknown) (unknown) Chloride Level 105 (units (unknown) date) mmol/L (98-107) unknown) 04/06/22 (unknown) (no (unknown) (unknown) Chronic back pain (units (unknown) date) (-2018) unknown) (unknown) (no (unknown) (unknown) Chronic kidney (units (unknown) date) disease, stage 3b unknown) (unknown) (no (unknown) (unknown) Chronic kidney (units (unknown) date) disease, stage 3b: unknown) The patient has long-standing stable chronic (unknown) (no (unknown) (unknown) Common Lab (units (unk nown) date) Results- Last: unknown) (unknown) (no (unknown) (unknown) Confirmed (units (unkn own) date) 05/11/22] unknown) (unknown) (no (unknown) (unknown) Const (units (unkno wn) date) unknown) (unknown) (no (unknown) (unknown) Coronary artery (units (unknown) date) disease unknown) (unknown) (no (unknown) (unknown) Coronary artery (units (unknown) date) disease: The unknown) patient presents for follow-up of coronary artery (unknown) (no (unknown) (unknown) Course Narrative: (units (unknown) date) unknown) (unknown) (no (unknown) (unknown) Creatinine 1.36 (units (unknown) date) mg/dL (0.66-1.25) H unknown) 04/06/22 (unknown) (no (unknown) (unknown) DAY ##0 05/17/16 (units (unknown) date) [History Confirmed unknown) 05/11/22] (unknown) (no (unknown) (unknown) DERMATOLOGIC: No (units (unknown) date) rashes or skin unknown) lesions. 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 unknown) (unknown) (no (unknown) (unknown) Details: (units (unkno wn) date) unknown) (unknown) (no (unknown) (unknown) Diabetes mellitus (units (unknown) date) (-1990) unknown) (unknown) (no (unknown) (unknown) Diabetes mellitus: (units (unknown) date) The patient states unknown) he is doing well. Complications of (unknown) (no (unknown) (unknown) Discuss/review. (units (unknown) date) unknown) (unknown) (no (unknown) (unknown) Documented By: (units (unknown) date) Jean Miles MD unknown) 05/11/22 0654 (unknown) (no (unknown) (unknown) Draft (units (unkno wn) date) unknown) (unknown) (no (unknown) (unknown) ENT: Mucous (units (un known) date) membranes pink and unknown) moist. (unknown) (no (unknown) (unknown) ER followup: The (units (unknown) date) patient was seen at [facility] on 05/09/2021, presenting (unknown) (no (unknown) (unknown) EXTREMITIES: No (units (unknown) date) clubbing, cyanosis, unknown) or edema. (unknown) (no (unknown) (unknown) EYES: Pupils equal (units (unknown) date) round and reactive. unknown) Extraocular motions intact. No scleral (unknown) (no (unknown) (unknown) Eosinophils (%) (units (unknown) date) (Auto) 2.4 % (2-4) unknown) 11/20/21 (unknown) (no (unknown) (unknown) Essential (units (unkn own) date) hypertension unknown) (unknown) (no (unknown) (unknown) Estimat Glomerular (units (unknown) date) Filtration Rate 51 unknown) mL/min (>60) L 04/06 (unknown) (no (unknown) (unknown) Exam Narrative (units (unknown) date) unknown) (unknown) (no (unknown) (unknown) Exam Narrative: (units (unknown) date) unknown) (unknown) (no (unknown) (unknown) Exam (units (unkno wn) date) unknown) (unknown) (no (unknown) (unknown) 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 (unknown) (no (unknown) (unknown) [facility]) (unknown) (no (unknown) (unknown) GASTROINTESTINAL: (units (unknown) date) Abdomen soft, unknown) non-tender, nondistended. (unknown) (no (unknown) (unknown) GENERAL: This is a (units (unknown) date) well-nourished, unknown) well-developed patient, in no apparent (unknown) (no (unknown) (unknown) GERD (units (unkno wn) date) (gastroesophageal unknown) reflux disease) (unknown) (no (unknown) (unknown) Gastroesophageal (units (unknown) date) reflux disease: The unknown) patient denies abdominal or flank pain, (unknown) (no (unknown) (unknown) Globulin 2.8 g/dL (units (unknown) date) (1.7-4.1) 04/06/22 unknown) (unknown) (no (unknown) (unknown) Glucose Level 134 (units (unknown) date) mg/dL (80-110) H unknown) 04/06/22 (unknown) (no (unknown) (unknown) HPI Narrative: (units (unknown) date) unknown) (unknown) (no (unknown) (unknown) HPI (units (unkno wn) date) unknown) (unknown) (no (unknown) (unknown) He notes (units (unkno wn) date) occasional unknown) excessive salivation. (unknown) (no (unknown) (unknown) Health Management (units (unknown) date) reviewed with unknown) patient: Yes (unknown) (no (unknown) (unknown) Health Management (units (unknown) date) unknown) (unknown) (no (unknown) (unknown) Hematocrit 35.4 % (units (unknown) date) (41-53) L 01/02/22 unknown) (unknown) (no (unknown) (unknown) Hemoglobin 12.2 (units (unknown) date) g/dL (13.5-17.5) L unknown) 01/02/22 (unknown) (no (unknown) (unknown) Hemoglobin A1c 6.7 (units (unknown) date) % (4.0-6.0) H unknown) 04/06/22 (unknown) (no (unknown) (unknown) His last (units (o wn) date) hemoglobin A1C was unknown) 6.7% on 04/06/2022. (unknown) (no (unknown) (unknown) History of (units (unk nown) date) cataract removal unknown) with insertion of prosthetic lens (-2017) (unknown) (no (unknown) (unknown) History of colon (units (unknown) date) polyps unknown) (unknown) (no (unknown) (unknown) History of colon (units (unknown) date) polyps: The patient unknown) has a history of colon polyps, s/p (unknown) (no (unknown) (unknown) Hyperlipidemia: (units (unknown) date) The present unknown) medications include rosuvastatin. The patient (unknown) (no (unknown) (unknown) Hypertension: The (units (unknown) date) patient is unknown) currently on amlodipine, carvedilol, losartan and (unknown) (no (unknown) (unknown) [facility]H ER follow up (units (unknown) date) for dizziness. unknown) (unknown) (no (unknown) (unknown) ITCHING (units (unkno wn) date) unknown) (unknown) (no (unknown) (unknown) Insulin) 7 unit (units (unknown) date) (0.07 mL) SUBCUT unknown) QAM #15 mL 08/23/21 [Rx Confirmed 05/11/22] (unknown) (no (unknown) (unknown) Intake Note: (units (u nknown) date) unknown) (unknown) (no (unknown) (unknown) Intake performed (units (unknown) date) by: Quiana Schneider unknown) (unknown) (no (unknown) (unknown) Intake (units (unkno wn) date) unknown) (unknown) (no (unknown) (unknown) Intake- Clincial (units (unknown) date) Staff unknown) (unknown) (no (unknown) (unknown) Internal Medicine (units (unknown) date) Office Visit unknown) (unknown) (no (unknown) (unknown) Lab Results (units (un known) date) unknown) (unknown) (no (unknown) (unknown) Loc: [facility] (units (unkno wn) date) unknown) (unknown) (no (unknown) (unknown) Lymphocytes (%) (units (unknown) date) (Auto) 24.2 % unknown) (25-40) L 11/20/21 (unknown) (no (unknown) (unknown) [id number] (units (unk nown) date) unknown) (unknown) (no (unknown) (unknown) 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 (unknown) (no (unknown) (unknown) MUSCULOSKELETAL: (units (unknown) date) Left knee with unknown) FROM, no swelling, warmth, erythema or effusion. (unknown) (no (unknown) (unknown) Mean Corpuscular (units (unknown) date) Hemoglobin 31.3 PG unknown) (26-34) 01/02/22 (unknown) (no (unknown) (unknown) Mean Corpuscular (units (unknown) date) Hemoglobin Concent unknown) 34.4 % (30-36) 12/06 (unknown) (no (unknown) (unknown) Mean Corpuscular (units (unknown) date) Volume 91.0 fL unknown) (80-100) 01/02/22 (unknown) (no (unknown) (unknown) Measles (units (unkno wn) date) unknown) (unknown) (no (unknown) (unknown) Medical History (units (unknown) date) (Reviewed 05/11/22 unknown) @ 06:56 by Jean Miles MD) (unknown) (no (unknown) (unknown) Medications (units (un known) date) unknown) (unknown) (no (unknown) (unknown) Mixed (units (unkno wn) date) hyperlipidemia unknown) (unknown) (no (unknown) (unknown) Monocytes (%) (units ( unknown) date) (Auto) 10.8 % unknown) (3-14) 11/20/21 (unknown) (no (unknown) (unknown) Mumps (units (unkno wn) date) unknown) (unknown) (no (unknown) (unknown) NECK: Trachea (units ( unknown) date) midline. No JVD, unknown) bruits or lymphadenopathy. Supple, nontender, no (unknown) (no (unknown) (unknown) NEUROLOGIC: Alert, (units (unknown) date) oriented, speech unknown) fluent, full upper and lower motor strength, (unknown) (no (unknown) (unknown) Neutrophils # (units ( unknown) date) (Auto) 4400 /uL unknown) (1947-1204) 11/20/21 (unknown) (no (unknown) (unknown) Neutrophils (%) (units (unknown) date) (Auto) 62.1 % unknown) (50-75) 11/20/21 (unknown) (no (unknown) (unknown) Osteoarthritis: (units (unknown) date) The patient has unknown) arthritis involving the left knee and states (unknown) (no (unknown) (unknown) PFSH (units (unkno wn) date) unknown) (unknown) (no (unknown) (unknown) Patient: (units (unkno wn) date) Konrad Barrett unknown) MR#: (unknown) (no (unknown) (unknown) Platelet Count 107 (units (unknown) date) X103/uL (150-400) L unknown) 01/02/22 (unknown) (no (unknown) (unknown) Potassium Level (units (unknown) date) 4.1 mmol/L unknown) (3.4-5.1) 04/06/22 (unknown) (no (unknown) (unknown) 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 unknown) (unknown) (no (unknown) (unknown) ROS (units (unkno wn) date) unknown) (unknown) (no (unknown) (unknown) Reason For Visit (units (unknown) date) unknown) (unknown) (no (unknown) (unknown) Recurrent (units (unkn own) date) sinusitis unknown) (unknown) (no (unknown) (unknown) Red Blood Count (units (unknown) date) 3.89 X106/uL unknown) (4.5-5.9) L 01/02/22 (unknown) (no (unknown) (unknown) Red Cell (units (unkno wn) date) Distribution Width unknown) 13.3 % (11.6-14.8) 01/02/22 (unknown) (no (unknown) (unknown) Signed By: (units (unk nown) date) unknown) (unknown) (no (unknown) (unknown) Skin cancer (units (un known) date) (-2016) unknown) (unknown) (no (unknown) (unknown) Smoking Status: (units (unknown) date) Former smoker unknown) (unknown) (no (unknown) (unknown) Social History (units (unknown) date) unknown) (unknown) (no (unknown) (unknown) Sodium Level 141 (units (unknown) date) mmol/L (137-145) unknown) 04/06/22 (unknown) (no (unknown) (unknown) Surgical History (units (unknown) date) (Reviewed 05/11/22 unknown) @ 06:56 by Jean Miles MD) (unknown) (no (unknown) (unknown) Symptoms have (units ( unknown) date) resolved with a unknown) single dose of meclizine.? He is now (unknown) (no (unknown) (unknown) The patient did an (units (unknown) date) aggressive ear unknown) cleaning 4 days ago.? He became dizzy that (unknown) (no (unknown) (unknown) There have been no (units (unknown) date) episodes of unknown) hypoglycemia.? 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 (unknown) (no (unknown) (unknown) Urine Creatinine (units (unknown) date) 60.8 mg/dL 04/06/22 unknown) (unknown) (no (unknown) (unknown) Urine (units (unkno wn) date) Microalbumin/Creati unknown) nine Ratio 618.4 ug/mg CR (<30) H (unknown) (no (unknown) (unknown) Urine Random (units (u nknown) date) Microalbumin 37.6 unknown) mg/dL (0-1.6) H 04/06/22 (unknown) (no (unknown) (unknown) Visit Reasons: IH (units (unknown) date) ER F/U for unknown) dizziness (unknown) (no (unknown) (unknown) White Blood Count (units (unknown) date) 7.1 X103/uL unknown) (4.5-11.0) 01/02/22 (unknown) (no (unknown) (unknown) [History Confirmed (units (unknown) date) 05/11/22] unknown) (unknown) (no (unknown) (unknown) acetaminophen (units ( unknown) date) [From Vicodin] unknown) Adverse Reaction (Severe, Verified 05/11/22 08:40) (unknown) (no (unknown) (unknown) amlodipine 10 mg (units (unknown) date) tablet 10 mg PO unknown) DAILY #90 tabs 12/18/21 [Rx Confirmed 05/11/22] (unknown) (no (unknown) (unknown) anorexia, nausea (units (unknown) date) or vomiting, unknown) dysphagia, change in bowel habits or black or (unknown) (no (unknown) (unknown) are in the (units (unk nown) date) 140/60s. The unknown) patient is tolerating the medication without side (unknown) (no (unknown) (unknown) aspirin 81 mg (units ( unknown) date) tablet,delayed unknown) release (Aspir-Low) 81 mg PO DAILY 11/11/17 (unknown) (no (unknown) (unknown) asymptomatic.? He (units (unknown) date) will be discharged unknown) home with meclizine. (unknown) (no (unknown) (unknown) bleeding from his (units (unknown) date) ears.? He denies unknown) sinus congestion, rhinorrhea, or sore (unknown) (no (unknown) (unknown) blood sugar (units (un known) date) diagnostic unknown) (FreeStyle Lite Strips) #100 ea 08/23/21 [Rx Confirmed (unknown) (no (unknown) (unknown) bloody stools. The (units (unknown) date) patient states that unknown) is well-controlled. He is currently (unknown) (no (unknown) (unknown) burning in the (units (unknown) date) feet.? The patient unknown) has been compliant with diabetic medication.? (unknown) (no (unknown) (unknown) carvedilol 25 mg (units (unknown) date) tablet 25 mg PO BID unknown) 12/08/21 [History Confirmed 05/11/22] (unknown) (no (unknown) (unknown) changes.? He is no (units (unknown) date) confusion.? No unknown) focal weakness or numbness.? He denies chest (unknown) (no (unknown) (unknown) chills.? He is no (units (unknown) date) other symptoms unknown) (unknown) (no (unknown) (unknown) chlorpheniramine (units (unknown) date) maleate 4 mg tablet unknown) (Chlor-Trimeton) 4 mg PO Q8H PRN SINUS (unknown) (no (unknown) (unknown) clobetasol 0.05 % (units (unknown) date) topical ointment 1 unknown) applic topical BID PRN 05/11/22 [History (unknown) (no (unknown) (unknown) colonoscopy 4-5 (units (unknown) date) years ago, unknown) declining further given his age. (unknown) (no (unknown) (unknown) compliance with (units (unknown) date) metformin and unknown) Lantus insulin, diet and exercise have been good. (unknown) (no (unknown) (unknown) current therapy (units (unknown) date) with tamsulosin, unknown) with nocturia x 2, and mild urinary frequency, (unknown) (no (unknown) (unknown) cyanocobalamin (units (unknown) date) (vitamin B-12) unknown) 1,000 mcg tablet,extended release 1,000 mcg PO Q (unknown) (no (unknown) (unknown) diabetes mellitus (units (unknown) date) include CAD and unknown) dyslipidemia.? The patient denies symptoms (unknown) (no (unknown) (unknown) disease that is (units (unknown) date) long-standing, and unknown) states he feels fatigued and short of breath (unknown) (no (unknown) (unknown) distress. (units (unkn own) date) unknown) (unknown) (no (unknown) (unknown) effects reported, (units (unknown) date) and denies unknown) exertional or other chest pain, dyspnea, orthopnea, (unknown) (no (unknown) (unknown) gallops, or rubs. (units (unknown) date) unknown) (unknown) (no (unknown) (unknown) have occurred. If (units (unknown) date) there are any unknown) questions, please contact the Medical Records (unknown) (no (unknown) (unknown) household members: (units (unknown) date) spouse unknown) (unknown) (no (unknown) (unknown) hydrocodone [From (units (unknown) date) Vicodin] Adverse unknown) Reaction (Severe, Verified 05/11/22 08:40) (unknown) (no (unknown) (unknown) icterus. No (units (un known) date) injection or unknown) drainage. (unknown) (no (unknown) (unknown) includes coronary (units (unknown) date) stenting in 2000.? unknown) The patient reports good compliance with (unknown) (no (unknown) (unknown) including (units (unkn own) date) polyuria, unknown) polydipsia, vision changes, or increasing numbness or (unknown) (no (unknown) (unknown) insulin glargine (units (unknown) date) 100 unit/mL (3 mL) unknown) subcutaneous pen (Lantus Solostar U-100 (unknown) (no (unknown) (unknown) kidney disease.? (units (unknown) date) The GFR is 51 unknown) ml/min and baseline creatinine 1.36 mg/dL and are (unknown) (no (unknown) (unknown) lightheadedness, (units (unknown) date) palpitations, or unknown) lower extremity swelling. Pertinent history (unknown) (no (unknown) (unknown) losartan 100 mg (units (unknown) date) tablet (Cozaar) 100 unknown) mg PO DAILY #90 tabs 03/05/22 [Rx Confirmed (unknown) (no (unknown) (unknown) may occur. (units (unk nown) date) Occasional unknown) wrong-word or 'sound-alike' substitutions may have (unknown) (no (unknown) (unknown) meclizine 25 mg (units (unknown) date) tablet 25 mg PO QID unknown) PRN dizziness #30 tabs 05/09/22 [Rx (unknown) (no (unknown) (unknown) medications. (units (u nknown) date) unknown) (unknown) (no (unknown) (unknown) meningeal signs. (units (unknown) date) unknown) (unknown) (no (unknown) (unknown) metformin 1,000 mg (units (unknown) date) tablet 1,000 mg PO unknown) BID 12/08/21 [History Confirmed 05/11/22] (unknown) (no (unknown) (unknown) night, after (units (u nknown) date) cleaning his ears.? unknown) He is no ear pain.? There is no drainage or (unknown) (no (unknown) (unknown) no focal deficits (units (unknown) date) evident. unknown) (unknown) (no (unknown) (unknown) occurred due to (units (unknown) date) the inherent unknown) limitations of voice recognition software. Please (unknown) (no (unknown) (unknown) off HCTZ (due to (units (unknown) date) MATT) for blood unknown) pressure control.?he states home blood pressures (unknown) (no (unknown) (unknown) omeprazole 20 mg (units (unknown) date) capsule,delayed unknown) release 20 mg PO DAILY #90 caps 12/11/21 [Rx (unknown) (no (unknown) (unknown) pain or (units (unkno wn) date) palpitations.? No unknown) chronic issues with dizziness.? He denies fever or (unknown) (no (unknown) (unknown) paroxysmal (units (unk nown) date) nocturnal dyspnea, unknown) pedal edema, or TIA symptoms. (unknown) (no (unknown) (unknown) pen needle, (units (un known) date) diabetic 31 gauge x unknown) 5/16' (Easy Comfort Pen [place]) #100 ea (unknown) (no (unknown) (unknown) present. (units (unkno wn) date) unknown) (unknown) (no (unknown) (unknown) read the note (units ( unknown) date) carefully and unknown) recognize, using context, where these substitutions (unknown) (no (unknown) (unknown) reporting []. (units ( unknown) date) unknown) (unknown) (no (unknown) (unknown) reports good (units (u nknown) date) compliance and unknown) denies any chest pain, exertional or otherwise. (unknown) (no (unknown) (unknown) rosuvastatin 5 mg (units (unknown) date) tablet (Crestor) 5 unknown) mg PO DAILY #90 tabs 12/08/21 [Rx Confirmed (unknown) (no (unknown) (unknown) software. Although (units (unknown) date) every effort is unknown) made to edit content, student services coordinator errors (unknown) (no (unknown) (unknown) stable.? The (units (u nknown) date) patient denies unknown) taking nonsteroidal anti-inflammatory drugs at (unknown) (no (unknown) (unknown) symptoms are (units (u nknown) date) currently unknown) controlled with a flare in the past week since resolved. (unknown) (no (unknown) (unknown) taking omeprazole (units (unknown) date) for unknown) gastroesophageal reflux disease at this time. (unknown) (no (unknown) (unknown) tamsulosin 0.4 mg (units (unknown) date) capsule (Flomax) unknown) 0.4 mg PO BID 11/11/17 [History Confirmed (unknown) (no (unknown) (unknown) throat.? He can (units (unknown) date) stand and walk.? He unknown) is no nausea vomiting.? He is no visual (unknown) (no (unknown) (unknown) urgency and (units (un known) date) hesitancy. He is unknown) followed by Dr. Pily Mendez. (unknown) (no (unknown) (unknown) vitamins (units (unkno wn) date) A,C,B-znko-dtrwcz unknown) 14,320 unit-226 mg-200 unit capsule (PreserVision (unknown) (no (unknown) (unknown) with activity, (units (unknown) date) similar to prior to unknown) stenting in 2000. He denies chest pain, (unknown) (no (unknown) (unknown) with dizziness (units (unknown) date) after an aggressive unknown) ear cleaning four days prior, and diagnosed (unknown) (no (unknown) (unknown) with vertigo, (units ( unknown) date) discharged on unknown) meclizine. The patient presents in followup Result panel 33 (unknown) (no (unknown) (unknown) (no value) (units (unk nown) date) unknown) (unknown) (no (unknown) (unknown) / (units (unkno wn) date) unknown) (unknown) (no (unknown) (unknown) (units (unkno wn) date) unknown) (unknown) (no (unknown) (unknown) 05/11/22 (units (unkno wn) date) unknown) (unknown) (no (unknown) (unknown) 05/11/22] (units (unkn own) date) unknown) (unknown) (no (unknown) (unknown) 01/02/22 [Rx (units (u nknown) date) Confirmed 05/11/22] unknown) (unknown) (no (unknown) (unknown) 09:08 05/11/22 (units (unknown) date) unknown) (unknown) (no (unknown) (unknown) 09:09 (units (unkno wn) date) unknown) (unknown) (no (unknown) (unknown) 04/06/22 (units (unkno wn) date) unknown) (unknown) (no (unknown) (unknown) 06/27 (units (unkno wn) date) unknown) (unknown) (no (unknown) (unknown) (units (unkno wn) date) unknown) (unknown) (no (unknown) (unknown) AREDS) cap PO (units ( unknown) date) 11/29/21 [History unknown) Confirmed 05/11/22] (unknown) (no (unknown) (unknown) AWV 12/08/2021 (units (u nknown) date) unknown) (unknown) (no (unknown) (unknown) [place]ne (units (unkno wn) date) unknown) (unknown) (no (unknown) (unknown) Age/Sex: 86 / M (units (unknown) date) Date of Service: unknown) (unknown) (no (unknown) (unknown) Alanine (units (unkno wn) date) Aminotransferase unknown) (ALT/SGPT) 16 IU/L (<50) (unknown) (no (unknown) (unknown) Albumin 3.8 g/dL (units (unknown) date) (3.5-5.0) 04/06/22 unknown) (unknown) (no (unknown) (unknown) Albumin/Globulin (units (unknown) date) Ratio 1.4 (1.0-2.8) unknown) 04/06/22 (unknown) (no (unknown) (unknown) Alkaline (units (unkno wn) date) Phosphatase 66 U/L unknown) (38-126) 04/06/22 (unknown) (no (unknown) (unknown) All systems (units (un known) date) reviewed + are unknown) unremarkable except as noted in HPI and below (unknown) (no (unknown) (unknown) Allergic rhinitis (units (unknown) date) unknown) (unknown) (no (unknown) (unknown) Allergic rhinitis: (units (unknown) date) The patient states unknown) symptoms are controlled with nasal saline. (unknown) (no (unknown) (unknown) Allergies (units (unkn own) date) unknown) (unknown) (no (unknown) (unknown) [place], [place] (units ( unknown) date) [id number] unknown) (unknown) (no (unknown) (unknown) Aspartate Amino (units (unknown) date) Transf (AST/SGOT) unknown) 19 IU/L (17-59) 04/06/ (unknown) (no (unknown) (unknown) Attending Dr: (units ( unknown) date) Jean Miles MD unknown) (unknown) (no (unknown) (unknown) BMI 27.9 (units (unkno wn) date) unknown) (unknown) (no (unknown) (unknown) BP 138/66 150/70 H (units (unknown) date) unknown) (unknown) (no (unknown) (unknown) BPH w urinary (units ( unknown) date) obs/LUTS unknown) (unknown) (no (unknown) (unknown) BUN/Creatinine (units (unknown) date) Ratio 17.6 (6-22) unknown) 04/06/22 (unknown) (no (unknown) (unknown) Basophils (%) (units ( unknown) date) (Auto) 0.5 % (0-2) unknown) 11/20/21 (unknown) (no (unknown) (unknown) Benign prostatic (units (unknown) date) hyperplasia: The unknown) patient reports symptoms are controlled on (unknown) (no (unknown) (unknown) Blood Pressure (units (unknown) date) Location Lt unknown) brachial Lt brachial (unknown) (no (unknown) (unknown) Blood Urea (units (unk nown) date) Nitrogen 24 mg/dL unknown) (9-20) H 04/06/22 (unknown) (no (unknown) (unknown) CARDIOVASCULAR: (units (unknown) date) Regular rate and unknown) rhythm with occasional ectopy without murmurs, (unknown) (no (unknown) (unknown) Calcium Level 8.7 (units (unknown) date) mg/dL (8.4-10.2) unknown) 04/06/22 (unknown) (no (unknown) (unknown) Carbon Dioxide (units (unknown) date) Level 24 mmol/L unknown) (22-32) 04/06/22 (unknown) (no (unknown) (unknown) Chicken pox (units (un known) date) unknown) (unknown) (no (unknown) (unknown) Chief Complaint (units (unknown) date) unknown) (unknown) (no (unknown) (unknown) Chief Complaint: (units (unknown) date) ER followup unknown) (unknown) (no (unknown) (unknown) Chloride Level 105 (units (unknown) date) mmol/L (98-107) unknown) 04/06/22 (unknown) (no (unknown) (unknown) Chronic back pain (units (unknown) date) (-2017) unknown) (unknown) (no (unknown) (unknown) Chronic kidney (units (unknown) date) disease, stage 3b unknown) (unknown) (no (unknown) (unknown) Chronic kidney (units (unknown) date) disease, stage 3b: unknown) The patient has long-standing stable chronic (unknown) (no (unknown) (unknown) Common Lab (units (unk nown) date) Results- Last: unknown) (unknown) (no (unknown) (unknown) Confirmed (units (unkn own) date) 05/11/22] unknown) (unknown) (no (unknown) (unknown) Const (units (unkno wn) date) unknown) (unknown) (no (unknown) (unknown) Coronary artery (units (unknown) date) disease unknown) (unknown) (no (unknown) (unknown) Coronary artery (units (unknown) date) disease: The unknown) patient presents for follow-up of coronary artery (unknown) (no (unknown) (unknown) Course Narrative: (units (unknown) date) unknown) (unknown) (no (unknown) (unknown) Creatinine 1.36 (units (unknown) date) mg/dL (0.66-1.25) H unknown) 04/06/22 (unknown) (no (unknown) (unknown) DAY ##0 05/17/16 (units (unknown) date) [History Confirmed unknown) 05/11/22] (unknown) (no (unknown) (unknown) DERMATOLOGIC: No (units (unknown) date) rashes or skin unknown) lesions. 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 unknown) (unknown) (no (unknown) (unknown) Details: (units (unkno wn) date) unknown) (unknown) (no (unknown) (unknown) Diabetes mellitus (units (unknown) date) () unknown) (unknown) (no (unknown) (unknown) Diabetes mellitus: (units (unknown) date) The patient states unknown) he is doing well. Complications of (unknown) (no (unknown) (unknown) Discuss/review. (units (unknown) date) unknown) (unknown) (no (unknown) (unknown) Documented By: (units (unknown) date) Jean Miles MD unknown) 05/11/22 0654 (unknown) (no (unknown) (unknown) Draft (units (unkno wn) date) unknown) (unknown) (no (unknown) (unknown) ENT: Mucous (units (un known) date) membranes pink and unknown) moist. (unknown) (no (unknown) (unknown) ER followup: The (units (unknown) date) patient was seen at [facility] on 05/09/2021, presenting (unknown) (no (unknown) (unknown) EXTREMITIES: No (units (unknown) date) clubbing, cyanosis, unknown) or edema. (unknown) (no (unknown) (unknown) EYES: Pupils equal (units (unknown) date) round and reactive. unknown) Extraocular motions intact. No scleral (unknown) (no (unknown) (unknown) Eosinophils (%) (units (unknown) date) (Auto) 2.4 % (2-4) unknown) 11/20/21 (unknown) (no (unknown) (unknown) Essential (units (unkn own) date) hypertension unknown) (unknown) (no (unknown) (unknown) Estimat Glomerular (units (unknown) date) Filtration Rate 51 unknown) mL/min (>60) L 04/06 (unknown) (no (unknown) (unknown) Exam Narrative (units (unknown) date) unknown) (unknown) (no (unknown) (unknown) Exam Narrative: (units (unknown) date) unknown) (unknown) (no (unknown) (unknown) Exam (units (unkno wn) date) unknown) (unknown) (no (unknown) (unknown) 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 (unknown) (no (unknown) (unknown) [facility]) (unknown) (no (unknown) (unknown) GASTROINTESTINAL: (units (unknown) date) Abdomen soft, unknown) non-tender, nondistended. (unknown) (no (unknown) (unknown) GENERAL: This is a (units (unknown) date) well-nourished, unknown) well-developed patient, in no apparent (unknown) (no (unknown) (unknown) GERD (units (unkno wn) date) (gastroesophageal unknown) reflux disease) (unknown) (no (unknown) (unknown) Gastroesophageal (units (unknown) date) reflux disease: The unknown) patient denies abdominal or flank pain, (unknown) (no (unknown) (unknown) Globulin 2.8 g/dL (units (unknown) date) (1.7-4.1) 04/06/22 unknown) (unknown) (no (unknown) (unknown) Glucose Level 134 (units (unknown) date) mg/dL (80-110) H unknown) 04/06/22 (unknown) (no (unknown) (unknown) HPI Narrative: (units (unknown) date) unknown) (unknown) (no (unknown) (unknown) HPI (units (unkno wn) date) unknown) (unknown) (no (unknown) (unknown) He notes (units (unkno wn) date) occasional unknown) excessive salivation. (unknown) (no (unknown) (unknown) Health Management (units (unknown) date) reviewed with unknown) patient: Yes (unknown) (no (unknown) (unknown) Health Management (units (unknown) date) unknown) (unknown) (no (unknown) (unknown) Height 5 ft 10 in (units (unknown) date) unknown) (unknown) (no (unknown) (unknown) Hematocrit 35.4 % (units (unknown) date) (41-53) L 01/02/22 unknown) (unknown) (no (unknown) (unknown) Hemoglobin 12.2 (units (unknown) date) g/dL (13.5-17.5) L unknown) 01/02/22 (unknown) (no (unknown) (unknown) Hemoglobin A1c 6.7 (units (unknown) date) % (4.0-6.0) H unknown) 04/06/22 (unknown) (no (unknown) (unknown) His last (units ( wn) date) hemoglobin A1C was unknown) 6.7% on 04/06/2022. (unknown) (no (unknown) (unknown) History of (units (unk nown) date) cataract removal unknown) with insertion of prosthetic lens () (unknown) (no (unknown) (unknown) History of colon (units (unknown) date) polyps unknown) (unknown) (no (unknown) (unknown) History of colon (units (unknown) date) polyps: The patient unknown) has a history of colon polyps, s/p (unknown) (no (unknown) (unknown) Hyperlipidemia: (units (unknown) date) The present unknown) medications include rosuvastatin. The patient (unknown) (no (unknown) (unknown) Hypertension: The (units (unknown) date) patient is unknown) currently on amlodipine, carvedilol, losartan and (unknown) (no (unknown) (unknown) [facility] ER follow up (units (unknown) date) for dizziness. unknown) (unknown) (no (unknown) (unknown) ITCHING (units (unkno wn) date) unknown) (unknown) (no (unknown) (unknown) Insulin) 7 unit (units (unknown) date) (0.07 mL) SUBCUT unknown) QAM #15 mL 08/23/21 [Rx Confirmed 05/11/22] (unknown) (no (unknown) (unknown) Intake Note: (units (u nknown) date) unknown) (unknown) (no (unknown) (unknown) Intake performed (units (unknown) date) by: Quiana Schneider unknown) (unknown) (no (unknown) (unknown) Intake (units (unkno wn) date) unknown) (unknown) (no (unknown) (unknown) Intake- Clincial (units (unknown) date) Staff unknown) (unknown) (no (unknown) (unknown) Internal Medicine (units (unknown) date) Office Visit unknown) (unknown) (no (unknown) (unknown) Lab Results (units (un known) date) unknown) (unknown) (no (unknown) (unknown) Loc: [facility] (units (unkno wn) date) unknown) (unknown) (no (unknown) (unknown) Lymphocytes (%) (units (unknown) date) (Auto) 24.2 % unknown) (25-40) L 11/20/21 (unknown) (no (unknown) (unknown) [id number] (units (unk nown) date) unknown) (unknown) (no (unknown) (unknown) 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 (unknown) (no (unknown) (unknown) MUSCULOSKELETAL: (units (unknown) date) Left knee with unknown) FROM, no swelling, warmth, erythema or effusion. (unknown) (no (unknown) (unknown) Mean Corpuscular (units (unknown) date) Hemoglobin 31.3 PG unknown) (26-34) 01/02/22 (unknown) (no (unknown) (unknown) Mean Corpuscular (units (unknown) date) Hemoglobin Concent unknown) 34.4 % (30-36) 12/06 (unknown) (no (unknown) (unknown) Mean Corpuscular (units (unknown) date) Volume 91.0 fL unknown) (80-100) 01/02/22 (unknown) (no (unknown) (unknown) Measles (units (unkno wn) date) unknown) (unknown) (no (unknown) (unknown) Medical History (units (unknown) date) (Reviewed 05/11/22 unknown) @ 06:56 by Jean Miles MD) (unknown) (no (unknown) (unknown) Medications (units (un known) date) unknown) (unknown) (no (unknown) (unknown) Mixed (units (unkno wn) date) hyperlipidemia unknown) (unknown) (no (unknown) (unknown) Monocytes (%) (units ( unknown) date) (Auto) 10.8 % unknown) (3-14) 11/20/21 (unknown) (no (unknown) (unknown) Mumps (units (unkno wn) date) unknown) (unknown) (no (unknown) (unknown) NECK: Trachea (units ( unknown) date) midline. No JVD, unknown) bruits or lymphadenopathy. Supple, nontender, no (unknown) (no (unknown) (unknown) NEUROLOGIC: Alert, (units (unknown) date) oriented, speech unknown) fluent, full upper and lower motor strength, (unknown) (no (unknown) (unknown) Neutrophils # (units ( unknown) date) (Auto) 4400 /uL unknown) (0087-7343) 11/20/21 (unknown) (no (unknown) (unknown) Neutrophils (%) (units (unknown) date) (Auto) 62.1 % unknown) (50-75) 11/20/21 (unknown) (no (unknown) (unknown) Osteoarthritis: (units (unknown) date) The patient has unknown) arthritis involving the left knee and states (unknown) (no (unknown) (unknown) Oxygen Delivery (units (unknown) date) Method room air unknown) (unknown) (no (unknown) (unknown) PFSH (units (unkno wn) date) unknown) (unknown) (no (unknown) (unknown) Patient: (units (unkno wn) date) Konrad Barrett unknown) MR#: (unknown) (no (unknown) (unknown) Platelet Count 107 (units (unknown) date) X103/uL (150-400) L unknown) 01/02/22 (unknown) (no (unknown) (unknown) Position Sitting (units (unknown) date) Sitting unknown) (unknown) (no (unknown) (unknown) Potassium Level (units (unknown) date) 4.1 mmol/L unknown) (3.4-5.1) 04/06/22 (unknown) (no (unknown) (unknown) 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 unknown) (unknown) (no (unknown) (unknown) ROS (units (unkno wn) date) unknown) (unknown) (no (unknown) (unknown) Reason For Visit (units (unknown) date) unknown) (unknown) (no (unknown) (unknown) Recurrent (units (unkn own) date) sinusitis unknown) (unknown) (no (unknown) (unknown) Red Blood Count (units (unknown) date) 3.89 X106/uL unknown) (4.5-5.9) L 01/02/22 (unknown) (no (unknown) (unknown) Red Cell (units (unkno wn) date) Distribution Width unknown) 13.3 % (11.6-14.8) 01/02/22 (unknown) (no (unknown) (unknown) Signed By: (units (unk nown) date) unknown) (unknown) (no (unknown) (unknown) Skin cancer (units (un known) date) (-2016) unknown) (unknown) (no (unknown) (unknown) Smoking Status: (units (unknown) date) Former smoker unknown) (unknown) (no (unknown) (unknown) Social History (units (unknown) date) unknown) (unknown) (no (unknown) (unknown) Sodium Level 141 (units (unknown) date) mmol/L (137-145) unknown) 04/06/22 (unknown) (no (unknown) (unknown) Surgical History (units (unknown) date) (Reviewed 05/11/22 unknown) @ 06:56 by Jean Miles MD) (unknown) (no (unknown) (unknown) Symptoms have (units ( unknown) date) resolved with a unknown) single dose of meclizine.? He is now (unknown) (no (unknown) (unknown) The patient did an (units (unknown) date) aggressive ear unknown) cleaning 4 days ago.? He became dizzy that (unknown) (no (unknown) (unknown) There have been no (units (unknown) date) episodes of unknown) hypoglycemia.? 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 (unknown) (no (unknown) (unknown) Urine Creatinine (units (unknown) date) 60.8 mg/dL 04/06/22 unknown) (unknown) (no (unknown) (unknown) Urine (units (unkno wn) date) Microalbumin/Creati unknown) nine Ratio 618.4 ug/mg CR (<30) H (unknown) (no (unknown) (unknown) Urine Random (units (u nknown) date) Microalbumin 37.6 unknown) mg/dL (0-1.6) H 04/06/22 (unknown) (no (unknown) (unknown) Visit Reasons: IH (units (unknown) date) ER F/U for unknown) dizziness (unknown) (no (unknown) (unknown) Vitals (units (unkno wn) date) unknown) (unknown) (no (unknown) (unknown) Weight 195 lb (units ( unknown) date) unknown) (unknown) (no (unknown) (unknown) White Blood Count (units (unknown) date) 7.1 X103/uL unknown) (4.5-11.0) 01/02/22 (unknown) (no (unknown) (unknown) [History Confirmed (units (unknown) date) 05/11/22] unknown) (unknown) (no (unknown) (unknown) acetaminophen (units ( unknown) date) [From Vicodin] unknown) Adverse Reaction (Severe, Verified 05/11/22 08:40) (unknown) (no (unknown) (unknown) amlodipine 10 mg (units (unknown) date) tablet 10 mg PO unknown) DAILY #90 tabs 12/18/21 [Rx Confirmed 05/11/22] (unknown) (no (unknown) (unknown) anorexia, nausea (units (unknown) date) or vomiting, unknown) dysphagia, change in bowel habits or black or (unknown) (no (unknown) (unknown) are in the (units (unk nown) date) 140/60s. The unknown) patient is tolerating the medication without side (unknown) (no (unknown) (unknown) aspirin 81 mg (units ( unknown) date) tablet,delayed unknown) release (Aspir-Low) 81 mg PO DAILY 11/11/17 (unknown) (no (unknown) (unknown) asymptomatic.? He (units (unknown) date) will be discharged unknown) home with meclizine. (unknown) (no (unknown) (unknown) bleeding from his (units (unknown) date) ears.? He denies unknown) sinus congestion, rhinorrhea, or sore (unknown) (no (unknown) (unknown) blood sugar (units (un known) date) diagnostic unknown) (FreeStyle Lite Strips) #100 ea 08/23/21 [Rx Confirmed (unknown) (no (unknown) (unknown) bloody stools. The (units (unknown) date) patient states that unknown) is well-controlled. He is currently (unknown) (no (unknown) (unknown) burning in the (units (unknown) date) feet.? The patient unknown) has been compliant with diabetic medication.? (unknown) (no (unknown) (unknown) carvedilol 25 mg (units (unknown) date) tablet 25 mg PO BID unknown) 12/08/21 [History Confirmed 05/11/22] (unknown) (no (unknown) (unknown) changes.? He is no (units (unknown) date) confusion.? No unknown) focal weakness or numbness.? He denies chest (unknown) (no (unknown) (unknown) chills.? He is no (units (unknown) date) other symptoms unknown) (unknown) (no (unknown) (unknown) chlorpheniramine (units (unknown) date) maleate 4 mg tablet unknown) (Chlor-Trimeton) 4 mg PO Q8H PRN SINUS (unknown) (no (unknown) (unknown) clobetasol 0.05 % (units (unknown) date) topical ointment 1 unknown) applic topical BID PRN 05/11/22 [History (unknown) (no (unknown) (unknown) colonoscopy 4-5 (units (unknown) date) years ago, unknown) declining further given his age. (unknown) (no (unknown) (unknown) compliance with (units (unknown) date) metformin and unknown) Lantus insulin, diet and exercise have been good. (unknown) (no (unknown) (unknown) current therapy (units (unknown) date) with tamsulosin, unknown) with nocturia x 2, and mild urinary frequency, (unknown) (no (unknown) (unknown) cyanocobalamin (units (unknown) date) (vitamin B-12) unknown) 1,000 mcg tablet,extended release 1,000 mcg PO Q (unknown) (no (unknown) (unknown) diabetes mellitus (units (unknown) date) include CAD and unknown) dyslipidemia.? The patient denies symptoms (unknown) (no (unknown) (unknown) disease that is (units (unknown) date) long-standing, and unknown) states he feels fatigued and short of breath (unknown) (no (unknown) (unknown) distress. (units (unkn own) date) unknown) (unknown) (no (unknown) (unknown) effects reported, (units (unknown) date) and denies unknown) exertional or other chest pain, dyspnea, orthopnea, (unknown) (no (unknown) (unknown) gallops, or rubs. (units (unknown) date) unknown) (unknown) (no (unknown) (unknown) have occurred. If (units (unknown) date) there are any unknown) questions, please contact the Medical Records (unknown) (no (unknown) (unknown) household members: (units (unknown) date) spouse unknown) (unknown) (no (unknown) (unknown) hydrocodone [From (units (unknown) date) Vicodin] Adverse unknown) Reaction (Severe, Verified 05/11/22 08:40) (unknown) (no (unknown) (unknown) icterus. No (units (un known) date) injection or unknown) drainage. (unknown) (no (unknown) (unknown) includes coronary (units (unknown) date) stenting in 2000.? unknown) The patient reports good compliance with (unknown) (no (unknown) (unknown) including (units (unkn own) date) polyuria, unknown) polydipsia, vision changes, or increasing numbness or (unknown) (no (unknown) (unknown) insulin glargine (units (unknown) date) 100 unit/mL (3 mL) unknown) subcutaneous pen (Lantus Solostar U-100 (unknown) (no (unknown) (unknown) kidney disease.? (units (unknown) date) The GFR is 51 unknown) ml/min and baseline creatinine 1.36 mg/dL and are (unknown) (no (unknown) (unknown) lightheadedness, (units (unknown) date) palpitations, or unknown) lower extremity swelling. Pertinent history (unknown) (no (unknown) (unknown) losartan 100 mg (units (unknown) date) tablet (Cozaar) 100 unknown) mg PO DAILY #90 tabs 03/05/22 [Rx Confirmed (unknown) (no (unknown) (unknown) may occur. (units (unk nown) date) Occasional unknown) wrong-word or 'sound-alike' substitutions may have (unknown) (no (unknown) (unknown) meclizine 25 mg (units (unknown) date) tablet 25 mg PO QID unknown) PRN dizziness #30 tabs 05/09/22 [Rx (unknown) (no (unknown) (unknown) medications. (units (u nknown) date) unknown) (unknown) (no (unknown) (unknown) meningeal signs. (units (unknown) date) unknown) (unknown) (no (unknown) (unknown) metformin 1,000 mg (units (unknown) date) tablet 1,000 mg PO unknown) BID 08/05/22 [History Confirmed 05/11/22] (unknown) (no (unknown) (unknown) night, after (units (u nknown) date) cleaning his ears.? unknown) He is no ear pain.? There is no drainage or (unknown) (no (unknown) (unknown) no focal deficits (units (unknown) date) evident. unknown) (unknown) (no (unknown) (unknown) occurred due to (units (unknown) date) the inherent unknown) limitations of voice recognition software. Please (unknown) (no (unknown) (unknown) off HCTZ (due to (units (unknown) date) MATT) for blood unknown) pressure control.?he states home blood pressures (unknown) (no (unknown) (unknown) omeprazole 20 mg (units (unknown) date) capsule,delayed unknown) release 20 mg PO DAILY #90 caps 12/11/21 [Rx (unknown) (no (unknown) (unknown) pain or (units (unkno wn) date) palpitations.? No unknown) chronic issues with dizziness.? He denies fever or (unknown) (no (unknown) (unknown) paroxysmal (units (unk nown) date) nocturnal dyspnea, unknown) pedal edema, or TIA symptoms. (unknown) (no (unknown) (unknown) pen needle, (units (un known) date) diabetic 31 gauge x unknown) 5/16' (Easy Comfort Pen [place]) #100 ea (unknown) (no (unknown) (unknown) present. (units (unkno wn) date) unknown) (unknown) (no (unknown) (unknown) read the note (units ( unknown) date) carefully and unknown) recognize, using context, where these substitutions (unknown) (no (unknown) (unknown) reporting it took (units (unknown) date) a few days to clear unknown) up but is now better. (unknown) (no (unknown) (unknown) reports good (units (u nknown) date) compliance and unknown) denies any chest pain, exertional or otherwise. (unknown) (no (unknown) (unknown) rosuvastatin 5 mg (units (unknown) date) tablet (Crestor) 5 unknown) mg PO DAILY #90 tabs 12/08/21 [Rx Confirmed (unknown) (no (unknown) (unknown) software. Although (units (unknown) date) every effort is unknown) made to edit content, student services coordinator errors (unknown) (no (unknown) (unknown) stable.? The (units (u nknown) date) patient denies unknown) taking nonsteroidal anti-inflammatory drugs at (unknown) (no (unknown) (unknown) symptoms are (units (u nknown) date) currently unknown) controlled with a flare in the past week since resolved. (unknown) (no (unknown) (unknown) taking omeprazole (units (unknown) date) for unknown) gastroesophageal reflux disease at this time. (unknown) (no (unknown) (unknown) tamsulosin 0.4 mg (units (unknown) date) capsule (Flomax) unknown) 0.4 mg PO BID 11/11/17 [History Confirmed (unknown) (no (unknown) (unknown) throat.? He can (units (unknown) date) stand and walk.? He unknown) is no nausea vomiting.? He is no visual (unknown) (no (unknown) (unknown) urgency and (units (un known) date) hesitancy. He is unknown) followed by Dr. Pily Mendez. (unknown) (no (unknown) (unknown) vitamins (units (unkno wn) date) A,C,P-zabb-[id number] unknown) 14,320 unit-226 mg-200 unit capsule (PreserVision (unknown) (no (unknown) (unknown) with activity, (units (unknown) date) similar to prior to unknown) stenting in 2000. He denies chest pain, (unknown) (no (unknown) (unknown) with dizziness (units (unknown) date) after an aggressive unknown) ear cleaning four days prior, and diagnosed (unknown) (no (unknown) (unknown) with vertigo, (units ( unknown) date) discharged on unknown) meclizine. The patient presents in followup Result panel 34 (unknown) (no (unknown) (unknown) (no value) (units (unk nown) date) unknown) (unknown) (no (unknown) (unknown) (1) Labyrinthitis: (units (unknown) date) unknown) (unknown) (no (unknown) (unknown) (2) Cerumen (units (un known) date) impaction: unknown) (unknown) (no (unknown) (unknown) / (units (unkno wn) date) unknown) (unknown) (no (unknown) (unknown) (units (unkno wn) date) unknown) (unknown) (no (unknown) (unknown) 05/11/22 0923 (units ( unknown) date) unknown) (unknown) (no (unknown) (unknown) 05/11/22 (units (unkno wn) date) unknown) (unknown) (no (unknown) (unknown) 05/11/22] (units (unkn own) date) unknown) (unknown) (no (unknown) (unknown) 01/02/22 [Rx (units (u nknown) date) Confirmed 05/11/22] unknown) (unknown) (no (unknown) (unknown) 09:08 05/11/22 (units (unknown) date) unknown) (unknown) (no (unknown) (unknown) 09:09 (units (unkno wn) date) unknown) (unknown) (no (unknown) (unknown) 04/06/22 (units (unkno wn) date) unknown) (unknown) (no (unknown) (unknown) 06/27 (units (unkno wn) date) unknown) (unknown) (no (unknown) (unknown) (units (unkno wn) date) unknown) (unknown) (no (unknown) (unknown) AREDS) cap PO (units ( unknown) date) 11/29/21 [History unknown) Confirmed 05/11/22] (unknown) (no (unknown) (unknown) AWV 12/08/2021 (units (u nknown) date) unknown) (unknown) (no (unknown) (unknown) Acne (units (unkno wn) date) unknown) (unknown) (no (unknown) (unknown) Age/Sex: 86 / M (units (unknown) date) Date of Service: unknown) (unknown) (no (unknown) (unknown) Alanine (units (unkno wn) date) Aminotransferase unknown) (ALT/SGPT) 16 IU/L (<50) (unknown) (no (unknown) (unknown) Albumin 3.8 g/dL (units (unknown) date) (3.5-5.0) 04/06/22 unknown) (unknown) (no (unknown) (unknown) Albumin/Globulin (units (unknown) date) Ratio 1.4 (1.0-2.8) unknown) 04/06/22 (unknown) (no (unknown) (unknown) Alkaline (units (unkno wn) date) Phosphatase 66 U/L unknown) (38-126) 04/06/22 (unknown) (no (unknown) (unknown) All systems (units (un known) date) reviewed + are unknown) unremarkable except as noted in HPI and below (unknown) (no (unknown) (unknown) Allergic rhinitis (units (unknown) date) unknown) (unknown) (no (unknown) (unknown) Allergies (units (unkn own) date) unknown) (unknown) (no (unknown) (unknown) An episode of (units (u nknown) date) vertigo may last unknown) seconds, minutes, or hours. Once you are over the (unknown) (no (unknown) (unknown) [place], [place] (units ( unknown) date) [id number] unknown) (unknown) (no (unknown) (unknown) Aspartate Amino (units (unknown) date) Transf (AST/SGOT) unknown) 19 IU/L (17-59) 04/06/ (unknown) (no (unknown) (unknown) Assessment + Plan (units (unknown) date) unknown) (unknown) (no (unknown) (unknown) Attending Dr: (units ( unknown) date) Jean Miles MD unknown) (unknown) (no (unknown) (unknown) Avoid cleaning (units (unknown) date) your ears at this unknown) point. (unknown) (no (unknown) (unknown) BMI 27.9 (units (unkno wn) date) unknown) (unknown) (no (unknown) (unknown) BP 138/66 150/70 H (units (unknown) date) unknown) (unknown) (no (unknown) (unknown) BPH w urinary (units ( unknown) date) obs/LUTS unknown) (unknown) (no (unknown) (unknown) BPPV is treatable. (units (unknown) date) The Nae maneuver unknown) is a simple treatment for the common cause (unknown) (no (unknown) (unknown) BUN/Creatinine (units (unknown) date) Ratio 17.6 (6-22) unknown) 04/06/22 (unknown) (no (unknown) (unknown) Basophils (%) (units ( unknown) date) (Auto) 0.5 % (0-2) unknown) 11/20/21 (unknown) (no (unknown) (unknown) Benign Paroxysmal (units (unknown) date) Positional Vertigo unknown) (unknown) (no (unknown) (unknown) Benign paroxysmal (units (unknown) date) positional vertigo unknown) (BPPV) is a common condition. You feel as (unknown) (no (unknown) (unknown) Blood Pressure (units (unknown) date) Location Lt unknown) brachial Lt brachial (unknown) (no (unknown) (unknown) Blood Urea (units (unk nown) date) Nitrogen 24 mg/dL unknown) (9-20) H 04/06/22 (unknown) (no (unknown) (unknown) Calcium Level 8.7 (units (unknown) date) mg/dL (8.4-10.2) unknown) 04/06/22 (unknown) (no (unknown) (unknown) Carbon Dioxide (units (unknown) date) Level 24 mmol/L unknown) (-32) 04/06/22 (unknown) (no (unknown) (unknown) Chicken pox (units (un known) date) unknown) (unknown) (no (unknown) (unknown) Chief Complaint (units (unknown) date) unknown) (unknown) (no (unknown) (unknown) Chief Complaint: (units (unknown) date) ER followup unknown) (unknown) (no (unknown) (unknown) Chloride Level 105 (units (unknown) date) mmol/L (98-107) unknown) 04/06/22 (unknown) (no (unknown) (unknown) Chronic back pain (units (unknown) date) (-2018) unknown) (unknown) (no (unknown) (unknown) Chronic kidney (units (unknown) date) disease, stage 3b unknown) (unknown) (no (unknown) (unknown) Common Lab (units (unk nown) date) Results- Last: unknown) (unknown) (no (unknown) (unknown) Confirmed (units (unkn own) date) 05/11/22] unknown) (unknown) (no (unknown) (unknown) Const (units (unkno wn) date) unknown) (unknown) (no (unknown) (unknown) Coronary artery (units (unknown) date) disease unknown) (unknown) (no (unknown) (unknown) Course Narrative: (units (unknown) date) unknown) (unknown) (no (unknown) (unknown) Creatinine 1.36 (units (unknown) date) mg/dL (0.66-1.25) H unknown) 04/06/22 (unknown) (no (unknown) (unknown) DAY ##0 05/17/16 (units (unknown) date) [History Confirmed unknown) 05/11/22] (unknown) (no (unknown) (unknown) : 1935 (units (unknown) date) Acct:[id number] unknown) (unknown) (no (unknown) (unknown) DRAINAGE 05/20/18 (units (unknown) date) [History Confirmed unknown) 05/11/22] (unknown) (no (unknown) (unknown) 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 unknown) (unknown) (no (unknown) (unknown) Details: (units (unkno wn) date) unknown) (unknown) (no (unknown) (unknown) Diabetes mellitus (units (unknown) date) () unknown) (unknown) (no (unknown) (unknown) Discuss/review. (units (unknown) date) unknown) (unknown) (no (unknown) (unknown) Documented By: (units (unknown) date) Jean Miles MD unknown) 05/11/22 0654 (unknown) (no (unknown) (unknown) Don't drive or (units (unknown) date) work with dangerous unknown) machinery for 1 week after symptoms go away. (unknown) (no (unknown) (unknown) ENT: Mucous (units (un known) date) membranes pink and unknown) moist. Left ear cerumen debris obscuring TM. (unknown) (no (unknown) (unknown) ER followup: The (units (unknown) date) patient was seen at [facility] on 05/09/2021, presenting (unknown) (no (unknown) (unknown) EYES: Pupils equal (units (unknown) date) round and reactive. unknown) Extraocular motions intact. No scleral (unknown) (no (unknown) (unknown) Eosinophils (%) (units (unknown) date) (Auto) 2.4 % (2-4) unknown) 11/20/21 (unknown) (no (unknown) (unknown) Essential (units (unkn own) date) hypertension unknown) (unknown) (no (unknown) (unknown) Estimat Glomerular (units (unknown) date) Filtration Rate 51 unknown) mL/min (>60) L 04/06 (unknown) (no (unknown) (unknown) Exam Narrative (units (unknown) date) unknown) (unknown) (no (unknown) (unknown) Exam Narrative: (units (unknown) date) unknown) (unknown) (no (unknown) (unknown) Exam (units (unkno wn) date) unknown) (unknown) (no (unknown) (unknown) [facility]) (unknown) (no (unknown) (unknown) Follow these (units (u nknown) date) guidelines when unknown) caring for yourself at home: (unknown) (no (unknown) (unknown) GENERAL: This is a (units (unknown) date) well-nourished, unknown) well-developed patient, in no apparent (unknown) (no (unknown) (unknown) GERD (units (unkno wn) date) (gastroesophageal unknown) reflux disease) (unknown) (no (unknown) (unknown) Globulin 2.8 g/dL (units (unknown) date) (1.7-4.1) 04/06/22 unknown) (unknown) (no (unknown) (unknown) Glucose Level 134 (units (unknown) date) mg/dL (80-110) H unknown) 04/06/22 (unknown) (no (unknown) (unknown) HPI Narrative: (units (unknown) date) unknown) (unknown) (no (unknown) (unknown) HPI (units (unkno wn) date) unknown) (unknown) (no (unknown) (unknown) Health Management (units (unknown) date) reviewed with unknown) patient: Yes (unknown) (no (unknown) (unknown) Health Management (units (unknown) date) unknown) (unknown) (no (unknown) (unknown) Height 5 ft 10 in (units (unknown) date) unknown) (unknown) (no (unknown) (unknown) Hematocrit 35.4 % (units (unknown) date) (41-53) L 01/02/22 unknown) (unknown) (no (unknown) (unknown) Hemoglobin 12.2 (units (unknown) date) g/dL (13.5-17.5) L unknown) 01/02/22 (unknown) (no (unknown) (unknown) Hemoglobin A1c 6.7 (units (unknown) date) % (4.0-6.0) H unknown) 04/06/22 (unknown) (no (unknown) (unknown) History of (units (unk nown) date) cataract removal unknown) with insertion of prosthetic lens () (unknown) (no (unknown) (unknown) History of colon (units (unknown) date) polyps unknown) (unknown) (no (unknown) (unknown) Home care (units (unkn own) date) unknown) (unknown) (no (unknown) (unknown) [facility] ER follow up (units (unknown) date) for dizziness. unknown) (unknown) (no (unknown) (unknown) ITCHING (units (unkno wn) date) unknown) (unknown) (no (unknown) (unknown) Insulin) 7 unit (units (unknown) date) (0.07 mL) SUBCUT unknown) QAM #15 mL 08/23/21 [Rx Confirmed 05/11/22] (unknown) (no (unknown) (unknown) Intake Note: (units (u nknown) date) unknown) (unknown) (no (unknown) (unknown) Intake performed (units (unknown) date) by: Quiana Schneider unknown) (unknown) (no (unknown) (unknown) Intake (units (unkno wn) date) unknown) (unknown) (no (unknown) (unknown) Intake- Clincial (units (unknown) date) Staff unknown) (unknown) (no (unknown) (unknown) Internal Medicine (units (unknown) date) Office Visit unknown) (unknown) (no (unknown) (unknown) It was very nice (units (unknown) date) to meet with you unknown) today! (unknown) (no (unknown) (unknown) Lab Results (units (un known) date) unknown) (unknown) (no (unknown) (unknown) Labyrinthitis, (units (unknown) date) unspecified ear unknown) (unknown) (no (unknown) (unknown) Laterality: left (units (unknown) date) Qualified Code(s): unknown) H61.22 - Impacted cerumen, left ear (unknown) (no (unknown) (unknown) Laterality: (units (un known) date) unspecified unknown) laterality Qualified Code(s): H83.09 (unknown) (no (unknown) (unknown) Loc: [facility] (units (unkno wn) date) unknown) (unknown) (no (unknown) (unknown) Lymphocytes (%) (units (unknown) date) (Auto) 24.2 % unknown) (25-40) L 11/20/21 (unknown) (no (unknown) (unknown) [id number] (units (unk nown) date) unknown) (unknown) (no (unknown) (unknown) Mean Corpuscular (units (unknown) date) Hemoglobin 31.3 PG unknown) (26-34) 01/02/22 (unknown) (no (unknown) (unknown) Mean Corpuscular (units (unknown) date) Hemoglobin Concent unknown) 34.4 % (30-36) 12/06 (unknown) (no (unknown) (unknown) Mean Corpuscular (units (unknown) date) Volume 91.0 fL unknown) (80-100) 01/02/22 (unknown) (no (unknown) (unknown) Measles (units (unkno wn) date) unknown) (unknown) (no (unknown) (unknown) Medical History (units (unknown) date) (Reviewed 05/11/22 unknown) @ 06:56 by Jean Miles MD) (unknown) (no (unknown) (unknown) Medications (units (un known) date) unknown) (unknown) (no (unknown) (unknown) Medications: (units (u nknown) date) unknown) (unknown) (no (unknown) (unknown) Mixed (units (unkno wn) date) hyperlipidemia unknown) (unknown) (no (unknown) (unknown) Monocytes (%) (units ( unknown) date) (Auto) 10.8 % unknown) (3-14) 11/20/21 (unknown) (no (unknown) (unknown) Mumps (units (unkno wn) date) unknown) (unknown) (no (unknown) (unknown) NECK: Trachea (units ( unknown) date) midline. No JVD, unknown) bruits or lymphadenopathy. Supple, nontender, no (unknown) (no (unknown) (unknown) NEUROLOGIC: Alert, (units (unknown) date) oriented, speech unknown) fluent, full upper and lower motor strength, (unknown) (no (unknown) (unknown) Neutrophils # (units ( unknown) date) (Auto) 4400 /uL unknown) (1264-9153) 11/20/21 (unknown) (no (unknown) (unknown) Neutrophils (%) (units (unknown) date) (Auto) 62.1 % unknown) (50-75) 11/20/21 (unknown) (no (unknown) (unknown) New (units (unkno wn) date) unknown) (unknown) (no (unknown) (unknown) Oxygen Delivery (units (unknown) date) Method room air unknown) (unknown) (no (unknown) (unknown) PFSH (units (unkno wn) date) unknown) (unknown) (no (unknown) (unknown) Patient: (units (unkno wn) date) Konrad Barrett unknown) MR#: (unknown) (no (unknown) (unknown) Plan (units (unkno wn) date) unknown) (unknown) (no (unknown) (unknown) Platelet Count 107 (units (unknown) date) X103/uL (150-400) L unknown) 01/02/22 (unknown) (no (unknown) (unknown) Position Sitting (units (unknown) date) Sitting unknown) (unknown) (no (unknown) (unknown) Potassium Level (units (unknown) date) 4.1 mmol/L unknown) (3.4-5.1) 04/06/22 (unknown) (no (unknown) (unknown) 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 (unknown) (no (unknown) (unknown) Pulse 81 (units (unkno wn) date) unknown) (unknown) (no (unknown) (unknown) Pulse Oximetry (%) (units (unknown) date) 98 unknown) (unknown) (no (unknown) (unknown) Pulse Source (units (u nknown) date) Monitor unknown) (unknown) (no (unknown) (unknown) Qualifiers: (units (un known) date) unknown) (unknown) (no (unknown) (unknown) ROS (units (unkno wn) date) unknown) (unknown) (no (unknown) (unknown) Reason For Visit (units (unknown) date) unknown) (unknown) (no (unknown) (unknown) Recurrent (units (unkn own) date) sinusitis unknown) (unknown) (no (unknown) (unknown) Red Blood Count (units (unknown) date) 3.89 X106/uL unknown) (4.5-5.9) L 01/02/22 (unknown) (no (unknown) (unknown) Red Cell (units (unkno wn) date) Distribution Width unknown) 13.3 % (11.6-14.8) 01/02/22 (unknown) (no (unknown) (unknown) Refilled (units (unkno wn) date) unknown) (unknown) (no (unknown) (unknown) Rest quietly in (units (unknown) date) bed if your unknown) symptoms are severe. Change position slowly. There (unknown) (no (unknown) (unknown) Right canal/TM (units (unknown) date) clear. unknown) (unknown) (no (unknown) (unknown) Schedule a nurse (units (unknown) date) visit for ear unknown) cleaning. (unknown) (no (unknown) (unknown) Signed By: (units (unk nown) date) <Electronically unknown) signed by Jean Miles MD> (unknown) (no (unknown) (unknown) Signed (units (unkno wn) date) unknown) (unknown) (no (unknown) (unknown) Skin cancer (units (un known) date) (-2016) unknown) (unknown) (no (unknown) (unknown) Smoking Status: (units (unknown) date) Former smoker unknown) (unknown) (no (unknown) (unknown) Social History (units (unknown) date) unknown) (unknown) (no (unknown) (unknown) Sodium Level 141 (units (unknown) date) mmol/L (137-145) unknown) 04/06/22 (unknown) (no (unknown) (unknown) Some people have (units (unknown) date) recurrence, so let unknown) us know if this continues to be a problem. (unknown) (no (unknown) (unknown) Surgical History (units (unknown) date) (Reviewed 05/11/22 unknown) @ 06:56 by Jean Miles MD) (unknown) (no (unknown) (unknown) Symptoms have (units ( unknown) date) resolved with a unknown) single dose of meclizine.? He is now (unknown) (no (unknown) (unknown) Take medicine as (units (unknown) date) prescribed to unknown) relieve your symptoms. (unknown) (no (unknown) (unknown) The patient did an (units (unknown) date) aggressive ear unknown) cleaning 4 days ago.? He became dizzy that (unknown) (no (unknown) (unknown) This creates the (units (unknown) date) feeling of vertigo. unknown) (unknown) (no (unknown) (unknown) This is in case (units (unknown) date) symptoms return unknown) suddenly. 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 (unknown) (no (unknown) (unknown) Urine Creatinine (units (unknown) date) 60.8 mg/dL 04/06/22 unknown) (unknown) (no (unknown) (unknown) Urine (units (unkno wn) date) Microalbumin/Creati unknown) nine Ratio 618.4 ug/mg CR (<30) H (unknown) (no (unknown) (unknown) Urine Random (units (u nknown) date) Microalbumin 37.6 unknown) mg/dL (0-1.6) H 04/06/22 (unknown) (no (unknown) (unknown) Vertigo is a false (units (unknown) date) feeling of motion unknown) plus disorientation that makes it seem as (unknown) (no (unknown) (unknown) Vertigo is caused (units (unknown) date) by a problem with unknown) the inner ear. The inner ear is located (unknown) (no (unknown) (unknown) Visit Reasons: [facility] (units (unknown) date) ER F/U for unknown) dizziness (unknown) (no (unknown) (unknown) Vitals (units (unkno wn) date) unknown) (unknown) (no (unknown) (unknown) Weight 195 lb (units ( unknown) date) unknown) (unknown) (no (unknown) (unknown) White Blood Count (units (unknown) date) 7.1 X103/uL unknown) (4.5-11.0) 01/02/22 (unknown) (no (unknown) (unknown) You had an episode (units (unknown) date) of vertigo, likely unknown) brought on by ear cleaning. (unknown) (no (unknown) (unknown) [History Confirmed (units (unknown) date) 05/11/22] unknown) (unknown) (no (unknown) (unknown) acetaminophen (units ( unknown) date) [From Vicodin] unknown) Adverse Reaction (Severe, Verified 05/11/22 08:40) (unknown) (no (unknown) (unknown) amlodipine 10 mg (units (unknown) date) tablet 10 mg PO unknown) DAILY #90 tabs 12/18/21 [Rx Confirmed 05/11/22] (unknown) (no (unknown) (unknown) aspirin 81 mg (units ( unknown) date) tablet,delayed unknown) release (Aspir-Low) 81 mg PO DAILY 11/11/17 (unknown) (no (unknown) (unknown) asymptomatic.? He (units (unknown) date) will be discharged unknown) home with meclizine. (unknown) (no (unknown) (unknown) ay occur. (units (unkn own) date) Occasional unknown) wrong-word or 'sound-alike' substitutions may have (unknown) (no (unknown) (unknown) behind the middle (units (unknown) date) ear. It is a part unknown) of the balance center of the body. It (unknown) (no (unknown) (unknown) bleeding from his (units (unknown) date) ears.? He denies unknown) sinus congestion, rhinorrhea, or sore (unknown) (no (unknown) (unknown) blood sugar (units (un known) date) diagnostic unknown) (FreeStyle Lite Strips) #100 ea 08/23/21 [Rx Confirmed (unknown) (no (unknown) (unknown) canals). These (units (unknown) date) particles can move unknown) out of position. This may happen as a result (unknown) (no (unknown) (unknown) carvedilol 25 mg (units (unknown) date) tablet 25 mg PO BID unknown) 12/08/21 [History Confirmed 05/11/22] (unknown) (no (unknown) (unknown) changes.? He is no (units (unknown) date) confusion.? No unknown) focal weakness or numbness.? He denies chest (unknown) (no (unknown) (unknown) chills.? He is no (units (unknown) date) other symptoms unknown) (unknown) (no (unknown) (unknown) chlorpheniramine (units (unknown) date) maleate 4 mg tablet unknown) (Chlor-Trimeton) 4 mg PO Q8H PRN SINUS (unknown) (no (unknown) (unknown) clobetasol 0.05 % (units (unknown) date) topical ointment 1 unknown) applic topical BID PRN 05/11/22 [History (unknown) (no (unknown) (unknown) contains small (units (unknown) date) calcium particles unknown) within fluid-filled canals (semi-circular (unknown) (no (unknown) (unknown) correct position (units (unknown) date) by having you do a unknown) series of head movements. (unknown) (no (unknown) (unknown) cyanocobalamin (units (unknown) date) (vitamin B-12) unknown) 1,000 mcg tablet,extended release 1,000 mcg PO Q (unknown) (no (unknown) (unknown) distress. (units (unkn own) date) unknown) (unknown) (no (unknown) (unknown) even just rolling (units (unknown) date) over in bed. unknown) (unknown) (no (unknown) (unknown) first episode of (units (unknown) date) vertigo, it may unknown) never return. Sometimes symptoms return off and (unknown) (no (unknown) (unknown) have occurred. If (units (unknown) date) there are any unknown) questions, please contact the Medical Records (unknown) (no (unknown) (unknown) heavy sweating. (units (unknown) date) Severe vertigo unknown) causes a loss of balance. You may even fall down. (unknown) (no (unknown) (unknown) household members: (units (unknown) date) spouse unknown) (unknown) (no (unknown) (unknown) hydrocodone [From (units (unknown) date) Vicodin] Adverse unknown) Reaction (Severe, Verified 05/11/22 08:40) (unknown) (no (unknown) (unknown) icterus. No (units (un known) date) injection or unknown) drainage. No nystagmus. (unknown) (no (unknown) (unknown) if the room is (units (unknown) date) spinning after unknown) changing position, moving your head quickly, or (unknown) (no (unknown) (unknown) if the room is (units ( unknown) date) spinning. A vertigo unknown) attack may cause sudden nausea, vomiting, and (unknown) (no (unknown) (unknown) insulin glargine (units (unknown) date) 100 unit/mL (3 mL) unknown) subcutaneous pen (Lantus Solostar U-100 (unknown) (no (unknown) (unknown) is usually 1 (units (u nknown) date) position that will unknown) feel best. This might be lying on one side or (unknown) (no (unknown) (unknown) kitchen areas. (units (unknown) date) unknown) (unknown) (no (unknown) (unknown) losartan 100 mg (units (unknown) date) tablet (Cozaar) 100 unknown) mg PO DAILY #90 tabs 03/05/22 [Rx Confirmed (unknown) (no (unknown) (unknown) lying on your back (units (unknown) date) with your head unknown) slightly raised on pillows. Until you have no (unknown) (no (unknown) (unknown) meclizine 25 mg PO (units (unknown) date) QID PRN 30 tabs 0RF unknown) dizziness (unknown) (no (unknown) (unknown) meclizine 25 mg (units (unknown) date) tablet 25 mg PO QID unknown) PRN dizziness #30 tabs 05/11/22 [Rx (unknown) (no (unknown) (unknown) meclizine three (units (unknown) date) times daily. He unknown) noted some vertigo turning over in bed last (unknown) (no (unknown) (unknown) meningeal signs. (units (unknown) date) unknown) (unknown) (no (unknown) (unknown) metformin 1,000 mg (units (unknown) date) PO BID 180 tabs 3RF unknown) (unknown) (no (unknown) (unknown) metformin 1,000 mg (units (unknown) date) tablet 1,000 mg PO unknown) BID #180 tabs 05/11/22 [Rx Confirmed (unknown) (no (unknown) (unknown) night, after (units (u nknown) date) cleaning his ears.? unknown) He is no ear pain.? There is no drainage or (unknown) (no (unknown) (unknown) night. (units (unkno wn) date) unknown) (unknown) (no (unknown) (unknown) no focal deficits (units (unknown) date) evident. unknown) (unknown) (no (unknown) (unknown) occurred due to (units (unknown) date) the inherent unknown) limitations of voice recognition software. Please (unknown) (no (unknown) (unknown) of aging, head (units (unknown) date) injury, or disease unknown) of the inner ear. Once that happens, moving (unknown) (no (unknown) (unknown) of vertigo. Your (units (unknown) date) provider may try to unknown) put the calcium particles back in their (unknown) (no (unknown) (unknown) omeprazole 20 mg (units (unknown) date) capsule,delayed unknown) release 20 mg PO DAILY #90 caps 12/11/21 [Rx (unknown) (no (unknown) (unknown) on for several (units (unknown) date) weeks or longer. unknown) (unknown) (no (unknown) (unknown) pain or (units (unkno wn) date) palpitations.? No unknown) chronic issues with dizziness.? He denies fever or (unknown) (no (unknown) (unknown) pen needle, (units (un known) date) diabetic 31 gauge x unknown) 09/18' (Easy Comfort Pen [place]) #100 ea (unknown) (no (unknown) (unknown) read the note (units ( unknown) date) carefully and unknown) recognize, using context, where these substitutions (unknown) (no (unknown) (unknown) reporting it took (units (unknown) date) a few days to clear unknown) up but is now better and continues on (unknown) (no (unknown) (unknown) rosuvastatin 5 mg (units (unknown) date) tablet (Crestor) 5 unknown) mg PO DAILY #90 tabs 12/08/21 [Rx Confirmed (unknown) (no (unknown) (unknown) software. Although (units (unknown) date) every effort is unknown) made to edit content, student services coordinator errors m (unknown) (no (unknown) (unknown) symptoms, you are (units (unknown) date) at a higher risk of unknown) falling. Let someone help you when you get (unknown) (no (unknown) (unknown) tamsulosin 0.4 mg (units (unknown) date) capsule (Flomax) unknown) 0.4 mg PO BID 11/11/17 [History Confirmed (unknown) (no (unknown) (unknown) throat.? He can (units (unknown) date) stand and walk.? He unknown) is no nausea vomiting.? He is no visual (unknown) (no (unknown) (unknown) up. Get rid of home (units (unknown) date) hazards such as unknown) loose electrical cords and throw rugs. Don?t (unknown) (no (unknown) (unknown) vitamins (units (unkno wn) date) A,C,F-zjrh-ktgsmr unknown) 14,320 unit-226 mg-200 unit capsule (PreserVision (unknown) (no (unknown) (unknown) walk in unfamiliar (units (unknown) date) areas that aren't unknown) lighted. Use night lights in bathrooms and (unknown) (no (unknown) (unknown) with dizziness (units (unknown) date) after an aggressive unknown) ear cleaning four days prior, and diagnosed (unknown) (no (unknown) (unknown) with vertigo, (units ( unknown) date) discharged on unknown) meclizine. The patient presents in followup (unknown) (no (unknown) (unknown) your head in (units (u nknown) date) certain ways may unknown) cause the particles to stimulate the inner ear. Result panel 35 (unknown) (no date) (unknown) (unknown) 0.8 % (unkn own) (unknown) (no date) (unknown) (unknown) 10.5 % (unkn own) (unknown) (no date) (unknown) (unknown) 100 /ul (unkn own) (unknown) (no date) (unknown) (unknown) 112 x10 3/ul (unkn own) (unknown) (no date) (unknown) (unknown) 12.4 g/dl (unkn own) (unknown) (no date) (unknown) (unknown) 13.4 % (unkn own) (unknown) (no date) (unknown) (unknown) 1600 /ul (unkn own) (unknown) (no date) (unknown) (unknown) 2.5 % (unkn own) (unknown) (no date) (unknown) (unknown) 200 /ul (unkn own) (unknown) (no date) (unknown) (unknown) 21.9 % (unkn own) (unknown) (no date) (unknown) (unknown) 30.8 pg (unkn own) (unknown) (no date) (unknown) (unknown) 33.8 % (unkn own) (unknown) (no date) (unknown) (unknown) 36.7 % (unkn own) (unknown) (no date) (unknown) (unknown) 4.03 x10 6/ul (unkn own) (unknown) (no date) (unknown) (unknown) 4600 /ul (unkn own) (unknown) (no date) (unknown) (unknown) 64.3 % (unkn own) (unknown) (no date) (unknown) (unknown) 7.1 x10 3/ul (unkn own) (unknown) (no date) (unknown) (unknown) 700 /ul (unkn own) (unknown) (no date) (unknown) (unknown) 91.2 fl (unkn own) Result panel 36 (unknown) (no date) (unknown) (unknown) 0.8 mg/dl (unkn own) (unknown) (no date) (unknown) (unknown) 1.3 (units unknown) (unknown) (unknown) (no date) (unknown) (unknown) 1.40 mg/dl (unkn own) (unknown) (no date) (unknown) (unknown) 103 mmol/l (unkn own) (unknown) (no date) (unknown) (unknown) 13.6 (units unknown) (unknown) (unknown) (no date) (unknown) (unknown) 139 mmol/l (unkn own) (unknown) (no date) (unknown) (unknown) 152 u/l (unkn own) (unknown) (no date) (unknown) (unknown) 152 u/l (unkn own) (unknown) (no date) (unknown) (unknown) 19 mg/dl (unkn own) (unknown) (no date) (unknown) (unknown) 22 iu/l (unkn own) (unknown) (no date) (unknown) (unknown) 227 mg/dl (unkn own) (unknown) (no date) (unknown) (unknown) 227 mg/dl (unkn own) (unknown) (no date) (unknown) (unknown) 24 mmol/l (unkn own) (unknown) (no date) (unknown) (unknown) 25 iu/l (unkn own) (unknown) (no date) (unknown) (unknown) 3.0 g/dl (unkn own) (unknown) (no date) (unknown) (unknown) 3.8 mmol/l (unkn own) (unknown) (no date) (unknown) (unknown) 4.0 g/dl (unkn own) (unknown) (no date) (unknown) (unknown) 49 ml/min (unkn own) (unknown) (no date) (unknown) (unknown) 49 ml/min (unkn own) (unknown) (no date) (unknown) (unknown) 51 u/l (unkn own) (unknown) (no date) (unknown) (unknown) 7.0 g/dl (unkn own) (unknown) (no date) (unknown) (unknown) 8.8 mg/dl (unkn own) Result panel 37 (unknown) (no (unknown) (unknown) (no value) (units (unk nown) date) unknown) (unknown) (no (unknown) (unknown) (1) 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 unknown) (unknown) (no (unknown) (unknown) - Date of Visit (units (unknown) date) unknown) (unknown) (no (unknown) (unknown) - Imaging (units (unkn own) date) unknown) (unknown) (no (unknown) (unknown) - Labs (units (unkno wn) date) unknown) (unknown) (no (unknown) (unknown) - Patient (units (unkn own) date) Self-Reported unknown) Symptoms (unknown) (no (unknown) (unknown) 05/11/22 Rx (units (un known) date) unknown) (unknown) (no (unknown) (unknown) 1,000 mcg (units (unkn own) date) tablet,extended unknown) release (unknown) (no (unknown) (unknown) 1. 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 Return in 6 (units (unknown) date) months for follow-up unknown) with labs prior (unknown) (no (unknown) (unknown) 2. He will be (units ( unknown) date) watched off treatment unknown) unless he shows evidence of clinically (unknown) (no (unknown) (unknown) 2. Previous workup (units (unknown) date) has included a bone unknown) marrow and skeletal x-rays which were (unknown) (no (unknown) (unknown) 3. 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 (unknown) (no (unknown) (unknown) ALT 22 IU/L (<50) (units (unknown) date) 05/18/22 09:15 unknown) (unknown) (no (unknown) (unknown) AST 25 IU/L (17-59) (unit s (unknown) date) 05/18/22 09:15 unknown) (unknown) (no (unknown) (unknown) Additional studies: (unit s (unknown) date) unknown) (unknown) (no (unknown) (unknown) Age/Sex: 86 / M (units (unknown) date) unknown) (unknown) (no (unknown) (unknown) Albumin (PEP) 3.8 (units (unknown) date) g/dL (2.9-4.4) unknown) 10/27/20 14:28 (unknown) (no (unknown) (unknown) Albumin 4.0 g/dL (units (unknown) date) (3.5-5.0) 05/18/22 unknown) 09:15 (unknown) (no (unknown) (unknown) Albumin/Globulin (units (unknown) date) (PEP) 1.4 (0.7-1.7) unknown) 10/27/20 14:28 (unknown) (no (unknown) (unknown) Albumin/Globulin (units (unknown) date) Ratio 1.3 (1.0-2.8) unknown) 05/18/22 09:15 (unknown) (no (unknown) (unknown) Alkaline Phosphatase (uni ts (unknown) date) 51 U/L (38-126) unknown) 05/18/22 09:15 (unknown) (no (unknown) (unknown) Allergies (units (unkn own) date) unknown) (unknown) (no (unknown) (unknown) Allergy/AdvReac Type (uni ts (unknown) date) Severity Reaction unknown) Status Date / Time (unknown) (no (unknown) (unknown) Eaqoe-5-Ahieunnag (units (unknown) date) 0.2 g/dL (0.0-0.4) unknown) 10/27/20 14:28 (unknown) (no (unknown) (unknown) Pomiz-5-Ezqyoljsn (units (unknown) date) 0.8 g/dL (0.4-1.0) unknown) 10/27/20 14:28 (unknown) (no (unknown) (unknown) Assessment and Plan (unit s (unknown) date) unknown) (unknown) (no (unknown) (unknown) Assessment: (units (un known) date) unknown) (unknown) (no (unknown) (unknown) BMA/Bx 10/18/2015: (units (unknown) date) Normal trilineage unknown) hematopoiesis with the normal cellularity (unknown) (no (unknown) (unknown) BPH (units (unkno wn) date) unknown) (unknown) (no (unknown) (unknown) BUN 19 mg/dL (9-20) (unit s (unknown) date) 05/18/22 09:15 unknown) (unknown) (no (unknown) (unknown) BUN/Creatinine Ratio (uni ts (unknown) date) 13.6 (6-22) 05/18/22 unknown) 09:15 (unknown) (no (unknown) (unknown) Baso # (Auto) 100 (units (unknown) date) /uL (0-100) 05/18/22 unknown) 09:15 (unknown) (no (unknown) (unknown) Baso % (Auto) 0.8 % (unit s (unknown) date) (0-2) 05/18/22 09:15 unknown) (unknown) (no (unknown) (unknown) Beta Globulins 0.9 (units (unknown) date) g/dL (0.7-1.3) unknown) 10/27/20 14:28 (unknown) (no (unknown) (unknown) Efmw-0-Svqrclln 0.8 (unit s (unknown) date) g/dL (0.7-1.3) unknown) 11/04/19 07:00 (unknown) (no (unknown) (unknown) Calcium 8.8 mg/dL (units (unknown) date) (8.4-10.2) 05/18/22 unknown) 09:15 (unknown) (no (unknown) (unknown) Carbon Dioxide 24 (units (unknown) date) mmol/L (22-32) unknown) 05/18/22 09:15 (unknown) (no (unknown) (unknown) Chief Complaint: f/u (uni ts (unknown) date) MGUS unknown) (unknown) (no (unknown) (unknown) Chloride 103 mmol/L (unit s (unknown) date) (98-107) 05/18/22 unknown) 09:15 (unknown) (no (unknown) (unknown) Closed [endoscopic] (unit s (unknown) date) biopsy of large unknown) intestine (02/12/13) (unknown) (no (unknown) (unknown) Coronary artery (units (unknown) date) disease that is post unknown) stent placement in June 2000. (unknown) (no (unknown) (unknown) Creatinine 1.40 (units (unknown) date) mg/dL (0.66-1.25) H unknown) 05/18/22 09:15 (unknown) (no (unknown) (unknown) : 1935 (units (unknown) date) Acct:[id number] unknown) (unknown) (no (unknown) (unknown) Date of Service: (units (unknown) date) 05/30/22 unknown) (unknown) (no (unknown) (unknown) Date of visit: (units (unknown) date) 05/30/22 unknown) (unknown) (no (unknown) (unknown) Eos # (Auto) 200 /uL (uni ts (unknown) date) (0-450) 05/18/22 unknown) 09:15 (unknown) (no (unknown) (unknown) Eos % (Auto) 2.5 % (units (unknown) date) (2-4) 05/18/22 09:15 unknown) (unknown) (no (unknown) (unknown) Estimated GFR 49 (units (unknown) date) mL/min (>60) L unknown) 05/18/22 09:15 (unknown) (no (unknown) (unknown) 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 (unknown) (no (unknown) (unknown) For now, will (units ( unknown) date) continue to monitor unknown) him at 6 month intervals. I think he is at (unknown) (no (unknown) (unknown) Fr Benjamin Perez+ Lambda LC (unit s (unknown) date) Qnt Cancelled unknown) 11/04/19 07:00 (unknown) (no (unknown) (unknown) Fr Lambda/Benjamin Perez (units (unknown) date) Ratio 1.96 11/04/19 unknown) 07:00 (unknown) (no (unknown) (unknown) Free Benjamin Perez Light (units (unknown) date) Chains 48.4 mg/L unknown) (3.3-19.4) H 11/20/21 07:46 (unknown) (no (unknown) (unknown) Free Benjamin Perez/Lambda (units (unknown) date) Ratio 2.04 unknown) (0.26-1.65) H 11/20/21 07:46 (unknown) (no (unknown) (unknown) Free Lambda LC, (units (unknown) date) Quant Cancelled unknown) 11/04/19 07:00 (unknown) (no (unknown) (unknown) Free Lambda Light (units (unknown) date) Chain 23.7 mg/L unknown) (5.7-26.3) 11/20/21 07:46 (unknown) (no (unknown) (unknown) GERD. (units (unkno wn) date) unknown) (unknown) (no (unknown) (unknown) Gamma Glob/Tot (units (unknown) date) Protein 2.8 g/dL unknown) (2.2-3.9) 10/27/20 14:28 (unknown) (no (unknown) (unknown) Gamma Globulins 0.9 (unit s (unknown) date) g/dL (0.4-1.8) unknown) 10/27/20 14:28 (unknown) (no (unknown) (unknown) Globulin 3.0 g/dL (units (unknown) date) (1.7-4.1) 05/18/22 unknown) 09:15 (unknown) (no (unknown) (unknown) Glucose 227 mg/dL (units (unknown) date) (80-110) H 05/18/22 unknown) 09:15 (unknown) (no (unknown) (unknown) Hct 36.7 % (41-53) L (uni ts (unknown) date) 05/18/22 09:15 unknown) (unknown) (no (unknown) (unknown) He had a wrist (units (unknown) date) injury in June unknown) 2019 and x-ray showed only degenerative (unknown) (no (unknown) (unknown) He has chronic (units (unknown) date) secondary anemia and unknown) thrombocytopenia. (unknown) (no (unknown) (unknown) Hgb 12.4 g/dL (units ( unknown) date) (13.5-17.5) L unknown) 05/18/22 09:15 (unknown) (no (unknown) (unknown) History (units (unkno wn) date) unknown) (unknown) (no (unknown) (unknown) Home Medications and (uni ts (unknown) date) Allergies unknown) (unknown) (no (unknown) (unknown) Home Medications (units (unknown) date) unknown) (unknown) (no (unknown) (unknown) Hypertension (units (u nknown) date) unknown) (unknown) (no (unknown) (unknown) ID/CC: (units (unkno wn) date) unknown) (unknown) (no (unknown) (unknown) LONG Interpretation (units (unknown) date) Comment (.) 05/10/21 unknown) 07:15 (unknown) (no (unknown) (unknown) LONG M-Jorge Not (units (unknown) date) observed g/dL (Not unknown) Observed) 11/04/19 07:00 (unknown) (no (unknown) (unknown) Impression: (units (un known) date) unknown) (unknown) (no (unknown) (unknown) Injection or (units (u nknown) date) infusion of other unknown) therapeutic or prophylactic substance (03/19/14) (unknown) (no (unknown) (unknown) Insulin-dependent (units (unknown) date) diabetes. Patient on unknown) metformin 1000 mg twice a day greater (unknown) (no (unknown) (unknown) Interval history: (units (unknown) date) unknown) (unknown) (no (unknown) (unknown) [facility] [address] (uni ts (unknown) date) [address] unknown) [place] [address] (unknown) (no (unknown) (unknown) Laboratory Last (units (unknown) date) Values unknown) (unknown) (no (unknown) (unknown) Lactate (units (unkno wn) date) Dehydrogenase 152 U/L unknown) (120-246) 05/18/22 09:15 (unknown) (no (unknown) (unknown) Light chain MGUS. (units (unknown) date) 09/15/2015 and unknown) 05/09/2026. Confirmed from laboratory data (unknown) (no (unknown) (unknown) Lite Strips) (units (u nknown) date) unknown) (unknown) (no (unknown) (unknown) Lymph # (Auto) 1600 (unit s (unknown) date) /uL (8625-1640) unknown) 05/18/22 09:15 (unknown) (no (unknown) (unknown) Lymph % (Auto) 21.9 (unit s (unknown) date) % (25-40) L 05/18/22 unknown) 09:15 (unknown) (no (unknown) (unknown) M-Jorge Not observed (uni ts (unknown) date) g/dL (Not Observed) unknown) 10/27/20 14:28 (unknown) (no (unknown) (unknown) [id number] (units (unk nown) date) unknown) (unknown) (no (unknown) (unknown) MCH 30.8 PG (26-34) (unit s (unknown) date) 05/18/22 09:15 unknown) (unknown) (no (unknown) (unknown) MCHC 33.8 % (30-36) (unit s (unknown) date) 05/18/22 09:15 unknown) (unknown) (no (unknown) (unknown) MCV 91.2 fL (80-100) (uni ts (unknown) date) 05/18/22 09:15 unknown) (unknown) (no (unknown) (unknown) Medication (units (unk nown) date) Instructions Recorded unknown) Confirmed Type (unknown) (no (unknown) (unknown) [place] # (Auto) 700 (units (unknown) date) /uL (0-900) 05/18/22 unknown) 09:15 (unknown) (no (unknown) (unknown) [place] % (Auto) 10.5 % (uni ts (unknown) date) (3-14) 05/18/22 09:15 unknown) (unknown) (no (unknown) (unknown) Neut # (Auto) 4600 (units (unknown) date) /uL (5159-5085) unknown) 05/18/22 09:15 (unknown) (no (unknown) (unknown) Neut % (Auto) 64.3 % (uni ts (unknown) date) (50-75) 05/18/22 unknown) 09:15 (unknown) (no (unknown) (unknown) Normal. SPEP/LONG on (unit s (unknown) date) 08/01/2015: normal unknown) without a detectable paraprotein or (unknown) (no (unknown) (unknown) Oncology History: (units (unknown) date) unknown) (unknown) (no (unknown) (unknown) Oncology Progress (units (unknown) date) Note unknown) (unknown) (no (unknown) (unknown) Other medical (units ( unknown) date) problems notable for unknown) (unknown) (no (unknown) (unknown) Overview: (units (unkn own) date) unknown) (unknown) (no (unknown) (unknown) PEP Comment 4c (units (unknown) date) Comment (.) 11/04/19 unknown) 07:00 (unknown) (no (unknown) (unknown) PEP Comment Comment (unit s (unknown) date) (.) 11/04/19 07:00 unknown) (unknown) (no (unknown) (unknown) PN -Subjective (units (unknown) date) unknown) (unknown) (no (unknown) (unknown) Patient: (units (unkno wn) date) Konrad Barrett Juventino unknown) MR#: (unknown) (no (unknown) (unknown) Plt Count 112 (units ( unknown) date) X103/uL (150-400) L unknown) 05/18/22 09:15 (unknown) (no (unknown) (unknown) Potassium 3.8 mmol/L (uni ts (unknown) date) (3.4-5.1) 05/18/22 unknown) 09:15 (unknown) (no (unknown) (unknown) Procedures (units (unk nown) date) unknown) (unknown) (no (unknown) (unknown) Prot Electrophor PDF (uni ts (unknown) date) Not Reportable unknown) 11/04/19 07:00 (unknown) (no (unknown) (unknown) Protein (units (unkno wn) date) electrophoresis, unknown) immunofixation, previous bone marrow and bone survey, (unknown) (no (unknown) (unknown) Provider: (units (unkn own) date) Ji Walsh MD unknown) (unknown) (no (unknown) (unknown) RBC 4.03 X106/uL (units (unknown) date) (4.5-5.9) L 05/18/22 unknown) 09:15 (unknown) (no (unknown) (unknown) RDW 13.4 % (units (unk nown) date) (11.6-14.8) 05/18/22 unknown) 09:15 (unknown) (no (unknown) (unknown) Recommendation: (units (unknown) date) unknown) (unknown) (no (unknown) (unknown) Ref Lab Notation (units (unknown) date) Comment (.) 10/27/20 unknown) 14:28 (unknown) (no (unknown) (unknown) Results (units (unkno wn) date) unknown) (unknown) (no (unknown) (unknown) SR Cardiovascular (units (unknown) date) issues: Shortness of unknown) breath with activity or lying flat (unknown) (no (unknown) (unknown) SR Constitution: (units (unknown) date) Weight loss/gain unknown) (unknown) (no (unknown) (unknown) SR Endocrine issues: (uni ts (unknown) date) Excessive urination unknown) (unknown) (no (unknown) (unknown) SR Genitourinary (units (unknown) date) issues: Frequent unknown) urination (unknown) (no (unknown) (unknown) SR Musculoskeletal (units (unknown) date) issues: Back or neck unknown) pain (unknown) (no (unknown) (unknown) SR Neuro issues: (units (unknown) date) Difficulty balancing unknown) (unknown) (no (unknown) (unknown) SR Skin issues: Dry (unit s (unknown) date) skin unknown) (unknown) (no (unknown) (unknown) SR ears, nose, (units (unknown) date) mouth, throat issues: unknown) Congestion (unknown) (no (unknown) (unknown) SR eye issues: (units (unknown) date) Double vision unknown) (unknown) (no (unknown) (unknown) SR respiratory (units (unknown) date) issues: Shortness of unknown) breath (unknown) (no (unknown) (unknown) Serum IgA 206 mg/dL (unit s (unknown) date) (61-437) 05/10/21 unknown) 07:15 (unknown) (no (unknown) (unknown) Serum IgG 895 mg/dL (unit s (unknown) date) (603-1613) 05/10/21 unknown) 07:15 (unknown) (no (unknown) (unknown) Serum IgM 87 mg/dL (units (unknown) date) (15-143) 05/10/21 unknown) 07:15 (unknown) (no (unknown) (unknown) Serum Total Protein (unit s (unknown) date) 6.7 g/dL (6.0-8.5) unknown) 11/04/19 07:00 (unknown) (no (unknown) (unknown) Serum protein (units ( unknown) date) electrophoresis with unknown) paraprotein and LONG on 08/01/2015: normal (unknown) (no (unknown) (unknown) Signed By: (units (unk nown) date) unknown) (unknown) (no (unknown) (unknown) Since he was last (units (unknown) date) and has been feeling unknown) good. He does not have any new pain, (unknown) (no (unknown) (unknown) Skeletal survey on (units (unknown) date) 05/16/2016: No unknown) evidence of lytic lesions. (unknown) (no (unknown) (unknown) Sodium 139 mmol/L (units (unknown) date) (137-145) 05/18/22 unknown) 09:15 (unknown) (no (unknown) (unknown) Solostar U-100 (units (unknown) date) Insulin) unknown) (unknown) (no (unknown) (unknown) The patient has (units (unknown) date) stable findings. He unknown) still has a small amount of monoclonal (unknown) (no (unknown) (unknown) Tot Benjamin Perez/Lambda (units (unknown) date) Ratio 6.16 unknown) (1.03-31.76) 05/18/20 08:13 (unknown) (no (unknown) (unknown) Total Bilirubin 0.8 (unit s (unknown) date) mg/dL (0.2-1.3) unknown) 05/18/22 09:15 (unknown) (no (unknown) (unknown) Total Protein (PEP) (unit s (unknown) date) 6.6 g/dL (6.0-8.5) unknown) 10/27/20 14:28 (unknown) (no (unknown) (unknown) Total Protein 7.0 (units (unknown) date) g/dL (6.3-8.2) unknown) 05/18/22 09:15 (unknown) (no (unknown) (unknown) U Free Benjamin Perez Light (units (unknown) date) Ch 127.43 mg/L unknown) (0.63-113.79) H 05/18/20 08:13 (unknown) (no (unknown) (unknown) U Free Lambda Light (unit s (unknown) date) Ch 20.69 mg/L unknown) (0.47-11.77) H 05/18/20 08:13 (unknown) (no (unknown) (unknown) WBC 7.1 X103/uL (units (unknown) date) (4.5-11.0) 05/18/22 unknown) 09:15 (unknown) (no (unknown) (unknown) a clonal process. (units (unknown) date) Fish for MDS panel unknown) was normal. Karyotype was normal at 45 XY (unknown) (no (unknown) (unknown) abnormal LONG. (units ( unknown) date) Skeletal survey on unknown) 05/16/2016: No evidence of lytic lesions. He (unknown) (no (unknown) (unknown) acetaminophen [From (unit s (unknown) date) Vicodin] AdvReac unknown) Severe ITCHING Verified 05/11/22 08:40 (unknown) (no (unknown) (unknown) amlodipine 10 mg (units (unknown) date) tablet 10 mg PO DAILY unknown) #90 tabs 12/18/21 05/11/22 Rx (unknown) (no (unknown) (unknown) anemia but it is (units (unknown) date) chronic and a little unknown) better than it was a year ago. (unknown) (no (unknown) (unknown) aspirin 81 mg (units ( unknown) date) tablet,delayed 81 mg unknown) PO DAILY 11/11/17 05/11/22 History (unknown) (no (unknown) (unknown) bleeding, localized (unit s (unknown) date) weakness, fever, unknown) chills, nausea, vomiting, cough or (unknown) (no (unknown) (unknown) blood sugar (units (un known) date) diagnostic (FreeStyle unknown) #100 ea 08/23/21 05/11/22 Rx (unknown) (no (unknown) (unknown) carvedilol 25 mg (units (unknown) date) tablet 25 mg PO BID unknown) 12/08/21 05/11/22 History (unknown) (no (unknown) (unknown) changes. (units (unkno wn) date) unknown) (unknown) (no (unknown) (unknown) chlorpheniramine (units (unknown) date) maleate 4 mg 4 mg PO unknown) Q8H PRN SINUS DRAINAGE 05/20/18 05/11/22 (unknown) (no (unknown) (unknown) clobetasol 0.05 % (units (unknown) date) topical ointment 1 unknown) applic topical BID PRN 05/11/22 05/11/22 (unknown) (no (unknown) (unknown) cyanocobalamin (units (unknown) date) (vitamin B-12) 1,000 unknown) mcg PO Q DAY ##0 05/17/16 05/11/22 History (unknown) (no (unknown) (unknown) doubt this is (units ( unknown) date) related to his unknown) monoclonal paraprotein situation. He has a mild (unknown) (no (unknown) (unknown) faint band on (units ( unknown) date) protein unknown) electrophoresis that is not quantifiable. He has mild (unknown) (no (unknown) (unknown) has chronic (units (un known) date) secondary anemia and unknown) thrombocytopenia. (unknown) (no (unknown) (unknown) hemoglobin, white (units (unknown) date) count, and ANC are unknown) all normal with the exception of a possible (unknown) (no (unknown) (unknown) hydrocodone [From (units (unknown) date) Vicodin] AdvReac unknown) Severe ITCHING Verified 05/11/22 08:40 (unknown) (no (unknown) (unknown) insulin glargine 100 (uni ts (unknown) date) unit/mL (3 7 unit unknown) (0.07 mL) SUBCUT QAM #15 mL 08/23/21 (unknown) (no (unknown) (unknown) is indicated for (units (unknown) date) this at the present unknown) time. (unknown) (no (unknown) (unknown) kappa paraprotein (units (unknown) date) with the minimal unknown) elevation of his free light chain ratio. (unknown) (no (unknown) (unknown) losartan 100 mg (units (unknown) date) tablet (Cozaar) 100 unknown) mg PO DAILY #90 tabs 05/28/22 Rx (unknown) (no (unknown) (unknown) low risk for (units (u nknown) date) developing a unknown) lymphoproliferative disorder. His mild (unknown) (no (unknown) (unknown) mL) subcutaneous pen (uni ts (unknown) date) (Lantus unknown) (unknown) (no (unknown) (unknown) meclizine 25 mg (units (unknown) date) tablet 25 mg PO QID unknown) PRN dizziness #30 tabs 05/11/22 05/11/22 Rx (unknown) (no (unknown) (unknown) metformin 1,000 mg (units (unknown) date) tablet 1,000 mg PO unknown) BID #180 tabs 05/11/22 05/11/22 Rx (unknown) (no (unknown) (unknown) negative (units (unkno wn) date) unknown) (unknown) (no (unknown) (unknown) neuropathy noted. (units (unknown) date) unknown) (unknown) (no (unknown) (unknown) of 50%. No evidence (unit s (unknown) date) of dysplastic unknown) changes. No evidence of fibrosis. 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 (uni ts (unknown) date) He has not noticed unknown) any new lumps or bumps, or night (unknown) (no (unknown) (unknown) showing a persistent (uni ts (unknown) date) abnormal free light unknown) chain assay: kappa of 32.6 and 31.6 (unknown) (no (unknown) (unknown) significant disease (unit s (unknown) date) progression. unknown) (unknown) (no (unknown) (unknown) stains were (units (un known) date) adequate. Flow unknown) cytometry from the aspirate reporting no evidence of (unknown) (no (unknown) (unknown) sweats. All other (units (unknown) date) systems are negative. unknown) (unknown) (no (unknown) (unknown) tablet (units (unkno wn) date) (Chlor-Trimeton) unknown) (unknown) (no (unknown) (unknown) tamsulosin 0.4 mg (units (unknown) date) capsule (Flomax) 0.4 unknown) mg PO BID 11/11/17 05/11/22 History (unknown) (no (unknown) (unknown) than 10 years. Urine (uni ts (unknown) date) microalbumin level unknown) dated 06/11/2014 at 1. 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 No treatment (unknown) (no (unknown) (unknown) thrombocytopenia (units (unknown) date) with a platelet count unknown) a [id number] which is a chronic finding. 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 (unknown) (no (unknown) (unknown) without a detectable (uni ts (unknown) date) paraprotein or unknown) abnormal LONG. 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 unknown) (unknown) (no (unknown) (unknown) - Date of Visit (units (unknown) date) unknown) (unknown) (no (unknown) (unknown) - Imaging (units (unkn own) date) unknown) (unknown) (no (unknown) (unknown) - Labs (units (unkno wn) date) unknown) (unknown) (no (unknown) (unknown) - Patient (units (unkn own) date) Self-Reported unknown) Symptoms (unknown) (no (unknown) (unknown) 05/11/22 Rx (units (un known) date) unknown) (unknown) (no (unknown) (unknown) 1,000 mcg (units (unkn own) date) tablet,extended unknown) release (unknown) (no (unknown) (unknown) 1. 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 Return in 6 (units (unknown) date) months for follow-up unknown) with labs prior (unknown) (no (unknown) (unknown) 2. He will be (units ( unknown) date) watched off treatment unknown) unless he shows evidence of clinically (unknown) (no (unknown) (unknown) 2. Previous workup (units (unknown) date) has included a bone unknown) marrow and skeletal x-rays which were (unknown) (no (unknown) (unknown) 3. 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 (unknown) (no (unknown) (unknown) ALT 22 IU/L (<50) (units (unknown) date) 05/18/22 09:15 unknown) (unknown) (no (unknown) (unknown) AST 25 IU/L (17-59) (unit s (unknown) date) 05/18/22 09:15 unknown) (unknown) (no (unknown) (unknown) Additional studies: (unit s (unknown) date) unknown) (unknown) (no (unknown) (unknown) Age/Sex: 86 / M (units (unknown) date) unknown) (unknown) (no (unknown) (unknown) Albumin (PEP) 3.8 (units (unknown) date) g/dL (2.9-4.4) unknown) 10/27/20 14:28 (unknown) (no (unknown) (unknown) Albumin 4.0 g/dL (units (unknown) date) (3.5-5.0) 05/18/22 unknown) 09:15 (unknown) (no (unknown) (unknown) Albumin/Globulin (units (unknown) date) (PEP) 1.4 (0.7-1.7) unknown) 10/27/20 14:28 (unknown) (no (unknown) (unknown) Albumin/Globulin (units (unknown) date) Ratio 1.3 (1.0-2.8) unknown) 05/18/22 09:15 (unknown) (no (unknown) (unknown) Alkaline Phosphatase (uni ts (unknown) date) 51 U/L (38-126) unknown) 05/18/22 09:15 (unknown) (no (unknown) (unknown) Allergies (units (unkn own) date) unknown) (unknown) (no (unknown) (unknown) Allergy/AdvReac Type (uni ts (unknown) date) Severity Reaction unknown) Status Date / Time (unknown) (no (unknown) (unknown) Srpdn-5-Jdopqjfem (units (unknown) date) 0.2 g/dL (0.0-0.4) unknown) 10/27/20 14:28 (unknown) (no (unknown) (unknown) Isjtr-0-Qilofcpqo (units (unknown) date) 0.8 g/dL (0.4-1.0) unknown) 10/27/20 14:28 (unknown) (no (unknown) (unknown) Assessment and Plan (unit s (unknown) date) unknown) (unknown) (no (unknown) (unknown) Assessment: (units (un known) date) unknown) (unknown) (no (unknown) (unknown) BMA/Bx 10/18/2015: (units (unknown) date) Normal trilineage unknown) hematopoiesis with the normal cellularity (unknown) (no (unknown) (unknown) BPH (units (unkno wn) date) unknown) (unknown) (no (unknown) (unknown) BUN 19 mg/dL (9-20) (unit s (unknown) date) 05/18/22 09:15 unknown) (unknown) (no (unknown) (unknown) BUN/Creatinine Ratio (uni ts (unknown) date) 13.6 (6-22) 05/18/22 unknown) 09:15 (unknown) (no (unknown) (unknown) Baso # (Auto) 100 (units (unknown) date) /uL (0-100) 05/18/22 unknown) 09:15 (unknown) (no (unknown) (unknown) Baso % (Auto) 0.8 % (unit s (unknown) date) (0-2) 05/18/22 09:15 unknown) (unknown) (no (unknown) (unknown) Beta Globulins 0.9 (units (unknown) date) g/dL (0.7-1.3) unknown) 10/27/20 14:28 (unknown) (no (unknown) (unknown) Hkzd-0-Zzmkpzhh 0.8 (unit s (unknown) date) g/dL (0.7-1.3) unknown) 11/04/19 07:00 (unknown) (no (unknown) (unknown) Calcium 8.8 mg/dL (units (unknown) date) (8.4-10.2) 05/18/22 unknown) 09:15 (unknown) (no (unknown) (unknown) Carbon Dioxide 24 (units (unknown) date) mmol/L (22-32) unknown) 05/18/22 09:15 (unknown) (no (unknown) (unknown) Chief Complaint: f/u (uni ts (unknown) date) MGUS unknown) (unknown) (no (unknown) (unknown) Chloride 103 mmol/L (unit s (unknown) date) (98-107) 05/18/22 unknown) 09:15 (unknown) (no (unknown) (unknown) Closed [endoscopic] (unit s (unknown) date) biopsy of large unknown) intestine (02/12/13) (unknown) (no (unknown) (unknown) Coronary artery (units (unknown) date) disease that is post unknown) stent placement in June 2000. (unknown) (no (unknown) (unknown) Creatinine 1.40 (units (unknown) date) mg/dL (0.66-1.25) H unknown) 05/18/22 09:15 (unknown) (no (unknown) (unknown) : 1935 (units (unknown) date) Acct:[id number] unknown) (unknown) (no (unknown) (unknown) Date of Service: (units (unknown) date) 05/30/22 unknown) (unknown) (no (unknown) (unknown) Date of visit: (units (unknown) date) 05/30/22 unknown) (unknown) (no (unknown) (unknown) Eos # (Auto) 200 /uL (uni ts (unknown) date) (0-450) 05/18/22 unknown) 09:15 (unknown) (no (unknown) (unknown) Eos % (Auto) 2.5 % (units (unknown) date) (2-4) 05/18/22 09:15 unknown) (unknown) (no (unknown) (unknown) Estimated GFR 49 (units (unknown) date) mL/min (>60) L unknown) 05/18/22 09:15 (unknown) (no (unknown) (unknown) 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 (unknown) (no (unknown) (unknown) For now, will (units ( unknown) date) continue to monitor unknown) him at 6 month intervals. I think he is at (unknown) (no (unknown) (unknown) Fr Benjamin Perez+ Lambda LC (unit s (unknown) date) Qnt Cancelled unknown) 11/04/19 07:00 (unknown) (no (unknown) (unknown) Fr Lambda/Benjamin Perez (units (unknown) date) Ratio 1.96 11/04/19 unknown) 07:00 (unknown) (no (unknown) (unknown) Free Benjamin Perez Light (units (unknown) date) Chains 48.4 mg/L unknown) (3.3-19.4) H 11/20/21 07:46 (unknown) (no (unknown) (unknown) Free Benjamin Perez/Lambda (units (unknown) date) Ratio 2.04 unknown) (0.26-1.65) H 11/20/21 07:46 (unknown) (no (unknown) (unknown) Free Lambda LC, (units (unknown) date) Quant Cancelled unknown) 11/04/19 07:00 (unknown) (no (unknown) (unknown) Free Lambda Light (units (unknown) date) Chain 23.7 mg/L unknown) (5.7-26.3) 11/20/21 07:46 (unknown) (no (unknown) (unknown) GERD. (units (unkno wn) date) unknown) (unknown) (no (unknown) (unknown) Gamma Glob/Tot (units (unknown) date) Protein 2.8 g/dL unknown) (2.2-3.9) 10/27/20 14:28 (unknown) (no (unknown) (unknown) Gamma Globulins 0.9 (unit s (unknown) date) g/dL (0.4-1.8) unknown) 10/27/20 14:28 (unknown) (no (unknown) (unknown) Globulin 3.0 g/dL (units (unknown) date) (1.7-4.1) 05/18/22 unknown) 09:15 (unknown) (no (unknown) (unknown) Glucose 227 mg/dL (units (unknown) date) (80-110) H 05/18/22 unknown) 09:15 (unknown) (no (unknown) (unknown) Hct 36.7 % (41-53) L (uni ts (unknown) date) 05/18/22 09:15 unknown) (unknown) (no (unknown) (unknown) He had a wrist (units (unknown) date) injury in June unknown) 2020 and x-ray showed only degenerative (unknown) (no (unknown) (unknown) He has chronic (units (unknown) date) secondary anemia and unknown) thrombocytopenia. (unknown) (no (unknown) (unknown) Hgb 12.4 g/dL (units ( unknown) date) (13.5-17.5) L unknown) 05/18/22 09:15 (unknown) (no (unknown) (unknown) History (units (unkno wn) date) unknown) (unknown) (no (unknown) (unknown) Home Medications and (uni ts (unknown) date) Allergies unknown) (unknown) (no (unknown) (unknown) Home Medications (units (unknown) date) unknown) (unknown) (no (unknown) (unknown) Hypertension (units (u nknown) date) unknown) (unknown) (no (unknown) (unknown) ID/CC: (units (unkno wn) date) unknown) (unknown) (no (unknown) (unknown) LONG Interpretation (units (unknown) date) Comment (.) 05/10/21 unknown) 07:15 (unknown) (no (unknown) (unknown) LOGN M-Jorge Not (units (unknown) date) observed g/dL (Not unknown) Observed) 11/04/19 07:00 (unknown) (no (unknown) (unknown) Impression: (units (un known) date) unknown) (unknown) (no (unknown) (unknown) Injection or (units (u nknown) date) infusion of other unknown) therapeutic or prophylactic substance (03/19/14) (unknown) (no (unknown) (unknown) Insulin-dependent (units (unknown) date) diabetes. Patient on unknown) metformin 1000 mg twice a day greater (unknown) (no (unknown) (unknown) Interval history: (units (unknown) date) unknown) (unknown) (no (unknown) (unknown) [facility] [address] (uni ts (unknown) date) [address] unknown) [place] [address] (unknown) (no (unknown) (unknown) Laboratory Last (units (unknown) date) Values unknown) (unknown) (no (unknown) (unknown) Lactate (units (unkno wn) date) Dehydrogenase 152 U/L unknown) (120-246) 05/18/22 09:15 (unknown) (no (unknown) (unknown) Light chain MGUS. (units (unknown) date) 09/15/2015 and unknown) 05/09/2026. Confirmed from laboratory data (unknown) (no (unknown) (unknown) Lite Strips) (units (u nknown) date) unknown) (unknown) (no (unknown) (unknown) Lymph # (Auto) 1600 (unit s (unknown) date) /uL (1880-5632) unknown) 05/18/22 09:15 (unknown) (no (unknown) (unknown) Lymph % (Auto) 21.9 (unit s (unknown) date) % (25-40) L 05/18/22 unknown) 09:15 (unknown) (no (unknown) (unknown) M-Jorge Not observed (uni ts (unknown) date) g/dL (Not Observed) unknown) 10/27/20 14:28 (unknown) (no (unknown) (unknown) [id number] (units (unk nown) date) unknown) (unknown) (no (unknown) (unknown) MCH 30.8 PG (26-34) (unit s (unknown) date) 05/18/22 09:15 unknown) (unknown) (no (unknown) (unknown) MCHC 33.8 % (30-36) (unit s (unknown) date) 05/18/22 09:15 unknown) (unknown) (no (unknown) (unknown) MCV 91.2 fL (80-100) (uni ts (unknown) date) 05/18/22 09:15 unknown) (unknown) (no (unknown) (unknown) Medication (units (unk nown) date) Instructions Recorded unknown) Confirmed Type (unknown) (no (unknown) (unknown) [place] # (Auto) 700 (units (unknown) date) /uL (0-900) 05/18/22 unknown) 09:15 (unknown) (no (unknown) (unknown) [place] % (Auto) 10.5 % (uni ts (unknown) date) (3-14) 05/18/22 09:15 unknown) (unknown) (no (unknown) (unknown) Neut # (Auto) 4600 (units (unknown) date) /uL (0388-2757) unknown) 05/18/22 09:15 (unknown) (no (unknown) (unknown) Neut % (Auto) 64.3 % (uni ts (unknown) date) (50-75) 05/18/22 unknown) 09:15 (unknown) (no (unknown) (unknown) Normal. SPEP/LONG on (unit s (unknown) date) 08/01/2015: normal unknown) without a detectable paraprotein or (unknown) (no (unknown) (unknown) Oncology History: (units (unknown) date) unknown) (unknown) (no (unknown) (unknown) Oncology Progress (units (unknown) date) Note unknown) (unknown) (no (unknown) (unknown) Other medical (units ( unknown) date) problems notable for unknown) (unknown) (no (unknown) (unknown) Overview: (units (unkn own) date) unknown) (unknown) (no (unknown) (unknown) PEP Comment 4c (units (unknown) date) Comment (.) 11/04/19 unknown) 07:00 (unknown) (no (unknown) (unknown) PEP Comment Comment (unit s (unknown) date) (.) 11/04/19 07:00 unknown) (unknown) (no (unknown) (unknown) PN -Subjective (units (unknown) date) unknown) (unknown) (no (unknown) (unknown) Patient: (units (unkno wn) date) Konrad Barrett unknown) MR#: (unknown) (no (unknown) (unknown) Plt Count 112 (units ( unknown) date) X103/uL (150-400) L unknown) 05/18/22 09:15 (unknown) (no (unknown) (unknown) Potassium 3.8 mmol/L (uni ts (unknown) date) (3.4-5.1) 05/18/22 unknown) 09:15 (unknown) (no (unknown) (unknown) Procedures (units (unk nown) date) unknown) (unknown) (no (unknown) (unknown) Prot Electrophor PDF (uni ts (unknown) date) Not Reportable unknown) 11/04/19 07:00 (unknown) (no (unknown) (unknown) Protein (units (unkno wn) date) electrophoresis, unknown) immunofixation, previous bone marrow and bone survey, (unknown) (no (unknown) (unknown) Provider: (units (unkn own) date) Ji Walsh MD unknown) (unknown) (no (unknown) (unknown) RBC 4.03 X106/uL (units (unknown) date) (4.5-5.9) L 05/18/22 unknown) 09:15 (unknown) (no (unknown) (unknown) RDW 13.4 % (units (unk nown) date) (11.6-14.8) 05/18/22 unknown) 09:15 (unknown) (no (unknown) (unknown) Recommendation: (units (unknown) date) unknown) (unknown) (no (unknown) (unknown) Ref Lab Notation (units (unknown) date) Comment (.) 10/27/20 unknown) 14:28 (unknown) (no (unknown) (unknown) Results (units (unkno wn) date) unknown) (unknown) (no (unknown) (unknown) SR Cardiovascular (units (unknown) date) issues: Shortness of unknown) breath with activity or lying flat (unknown) (no (unknown) (unknown) SR Constitution: (units (unknown) date) Weight loss/gain unknown) (unknown) (no (unknown) (unknown) SR Endocrine issues: (uni ts (unknown) date) Excessive urination unknown) (unknown) (no (unknown) (unknown) SR Genitourinary (units (unknown) date) issues: Frequent unknown) urination (unknown) (no (unknown) (unknown) SR Musculoskeletal (units (unknown) date) issues: Back or neck unknown) pain (unknown) (no (unknown) (unknown) SR Neuro issues: (units (unknown) date) Difficulty balancing unknown) (unknown) (no (unknown) (unknown) SR Skin issues: Dry (unit s (unknown) date) skin unknown) (unknown) (no (unknown) (unknown) SR ears, nose, (units (unknown) date) mouth, throat issues: unknown) Congestion (unknown) (no (unknown) (unknown) SR eye issues: (units (unknown) date) Double vision unknown) (unknown) (no (unknown) (unknown) SR respiratory (units (unknown) date) issues: Shortness of unknown) breath (unknown) (no (unknown) (unknown) Serum IgA 206 mg/dL (unit s (unknown) date) (61-437) 01/05/22 unknown) 07:15 (unknown) (no (unknown) (unknown) Serum IgG 895 mg/dL (unit s (unknown) date) (603-1613) 05/10/21 unknown) 07:15 (unknown) (no (unknown) (unknown) Serum IgM 87 mg/dL (units (unknown) date) (15-143) 05/10/21 unknown) 07:15 (unknown) (no (unknown) (unknown) Serum Total Protein (unit s (unknown) date) 6.7 g/dL (6.0-8.5) unknown) 11/04/19 07:00 (unknown) (no (unknown) (unknown) Serum protein (units ( unknown) date) electrophoresis with unknown) paraprotein and LONG on 08/01/2015: normal (unknown) (no (unknown) (unknown) Signed (units (unkno wn) date) By:<Electronically unknown) signed by Ji Walsh MD>05/30/22 1603 (unknown) (no (unknown) (unknown) Since he was last (units (unknown) date) and has been feeling unknown) good. He does not have any new pain, (unknown) (no (unknown) (unknown) Skeletal survey on (units (unknown) date) 05/16/2016: No unknown) evidence of lytic lesions. (unknown) (no (unknown) (unknown) Sodium 139 mmol/L (units (unknown) date) (137-145) 05/18/22 unknown) 09:15 (unknown) (no (unknown) (unknown) Solostar U-100 (units (unknown) date) Insulin) unknown) (unknown) (no (unknown) (unknown) The patient has (units (unknown) date) stable findings. He unknown) still has a small amount of monoclonal (unknown) (no (unknown) (unknown) Tot Benjamin Perez/Lambda (units (unknown) date) Ratio 6.16 unknown) (1.03-31.76) 05/18/20 08:13 (unknown) (no (unknown) (unknown) Total Bilirubin 0.8 (unit s (unknown) date) mg/dL (0.2-1.3) unknown) 05/18/22 09:15 (unknown) (no (unknown) (unknown) Total Protein (PEP) (unit s (unknown) date) 6.6 g/dL (6.0-8.5) unknown) 10/27/20 14:28 (unknown) (no (unknown) (unknown) Total Protein 7.0 (units (unknown) date) g/dL (6.3-8.2) unknown) 05/18/22 09:15 (unknown) (no (unknown) (unknown) U Free Benjamin Perez Light (units (unknown) date) Ch 127.43 mg/L unknown) (0.63-113.79) H 05/18/20 08:13 (unknown) (no (unknown) (unknown) U Free Lambda Light (unit s (unknown) date) Ch 20.69 mg/L unknown) (0.47-11.77) H 05/18/20 08:13 (unknown) (no (unknown) (unknown) WBC 7.1 X103/uL (units (unknown) date) (4.5-11.0) 05/18/22 unknown) 09:15 (unknown) (no (unknown) (unknown) a clonal process. (units (unknown) date) Fish for MDS panel unknown) was normal. Karyotype was normal at 45 XY (unknown) (no (unknown) (unknown) abnormal LONG. (units ( unknown) date) Skeletal survey on unknown) 05/16/2016: No evidence of lytic lesions. He (unknown) (no (unknown) (unknown) acetaminophen [From (unit s (unknown) date) Vicodin] AdvReac unknown) Severe ITCHING Verified 05/11/22 08:40 (unknown) (no (unknown) (unknown) amlodipine 10 mg (units (unknown) date) tablet 10 mg PO DAILY unknown) #90 tabs 12/18/21 05/11/22 Rx (unknown) (no (unknown) (unknown) anemia but it is (units (unknown) date) chronic and a little unknown) better than it was a year ago. (unknown) (no (unknown) (unknown) aspirin 81 mg (units ( unknown) date) tablet,delayed 81 mg unknown) PO DAILY 11/11/17 05/11/22 History (unknown) (no (unknown) (unknown) bleeding, localized (unit s (unknown) date) weakness, fever, unknown) chills, nausea, vomiting, cough or (unknown) (no (unknown) (unknown) blood sugar (units (un known) date) diagnostic (FreeStyle unknown) #100 ea 08/23/21 05/11/22 Rx (unknown) (no (unknown) (unknown) carvedilol 25 mg (units (unknown) date) tablet 25 mg PO BID unknown) 12/08/21 05/11/22 History (unknown) (no (unknown) (unknown) changes. (units (unkno wn) date) unknown) (unknown) (no (unknown) (unknown) chlorpheniramine (units (unknown) date) maleate 4 mg 4 mg PO unknown) Q8H PRN SINUS DRAINAGE 05/20/18 05/11/22 (unknown) (no (unknown) (unknown) clobetasol 0.05 % (units (unknown) date) topical ointment 1 unknown) applic topical BID PRN 05/11/22 05/11/22 (unknown) (no (unknown) (unknown) cyanocobalamin (units (unknown) date) (vitamin B-12) 1,000 unknown) mcg PO Q DAY ##0 05/17/16 05/11/22 History (unknown) (no (unknown) (unknown) doubt this is (units ( unknown) date) related to his unknown) monoclonal paraprotein situation. He has a mild (unknown) (no (unknown) (unknown) faint band on (units ( unknown) date) protein unknown) electrophoresis that is not quantifiable. He has mild (unknown) (no (unknown) (unknown) has chronic (units (un known) date) secondary anemia and unknown) thrombocytopenia. (unknown) (no (unknown) (unknown) hemoglobin, white (units (unknown) date) count, and ANC are unknown) all normal with the exception of a possible (unknown) (no (unknown) (unknown) hydrocodone [From (units (unknown) date) Vicodin] AdvReac unknown) Severe ITCHING Verified 05/11/22 08:40 (unknown) (no (unknown) (unknown) insulin glargine 100 (uni ts (unknown) date) unit/mL (3 7 unit unknown) (0.07 mL) SUBCUT QAM #15 mL 08/23/21 (unknown) (no (unknown) (unknown) is indicated for (units (unknown) date) this at the present unknown) time. (unknown) (no (unknown) (unknown) kappa paraprotein (units (unknown) date) with the minimal unknown) elevation of his free light chain ratio. (unknown) (no (unknown) (unknown) losartan 100 mg (units (unknown) date) tablet (Cozaar) 100 unknown) mg PO DAILY #90 tabs 05/28/22 Rx (unknown) (no (unknown) (unknown) low risk for (units (u nknown) date) developing a unknown) lymphoproliferative disorder. His mild (unknown) (no (unknown) (unknown) mL) subcutaneous pen (uni ts (unknown) date) (Lantus unknown) (unknown) (no (unknown) (unknown) meclizine 25 mg (units (unknown) date) tablet 25 mg PO QID unknown) PRN dizziness #30 tabs 05/11/22 05/11/22 Rx (unknown) (no (unknown) (unknown) metformin 1,000 mg (units (unknown) date) tablet 1,000 mg PO unknown) BID #180 tabs 05/11/22 05/11/22 Rx (unknown) (no (unknown) (unknown) negative (units (unkno wn) date) unknown) (unknown) (no (unknown) (unknown) neuropathy noted. (units (unknown) date) unknown) (unknown) (no (unknown) (unknown) of 50%. No evidence (unit s (unknown) date) of dysplastic unknown) changes. No evidence of fibrosis. 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 (uni ts (unknown) date) He has not noticed unknown) any new lumps or bumps, or night (unknown) (no (unknown) (unknown) showing a persistent (uni ts (unknown) date) abnormal free light unknown) chain assay: kappa of 32.6 and 31.6 (unknown) (no (unknown) (unknown) significant disease (unit s (unknown) date) progression. unknown) (unknown) (no (unknown) (unknown) stains were (units (un known) date) adequate. Flow unknown) cytometry from the aspirate reporting no evidence of (unknown) (no (unknown) (unknown) sweats. All other (units (unknown) date) systems are negative. unknown) (unknown) (no (unknown) (unknown) tablet (units (unkno wn) date) (Chlor-Trimeton) unknown) (unknown) (no (unknown) (unknown) tamsulosin 0.4 mg (units (unknown) date) capsule (Flomax) 0.4 unknown) mg PO BID 11/11/17 05/11/22 History (unknown) (no (unknown) (unknown) than 10 years. Urine (uni ts (unknown) date) microalbumin level unknown) dated 06/11/2014 at 1. 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 No treatment (unknown) (no (unknown) (unknown) thrombocytopenia (units (unknown) date) with a platelet count unknown) a [id number] which is a chronic finding. 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 (unknown) (no (unknown) (unknown) without a detectable (uni ts (unknown) date) paraprotein or unknown) abnormal LONG. Result panel 39 (unknown) (no (unknown) (unknown) (no value) (units (unk nown) date) unknown) (unknown) (no (unknown) (unknown) (1) Excessive (units ( unknown) date) cerumen in both unknown) ear canals: (unknown) (no (unknown) (unknown) 06/06/22 (units (unkno wn) date) unknown) (unknown) (no (unknown) (unknown) Accompanied by: (units (unknown) date) unknown) (unknown) (no (unknown) (unknown) Age/Sex: 86 / M (units (unknown) date) Date of Service: unknown) (unknown) (no (unknown) (unknown) Allergies (units (unkn own) date) unknown) (unknown) (no (unknown) (unknown) ANNETTE Lawton (units ( unknown) date) [id number] unknown) (unknown) (no (unknown) (unknown) Attending Dr: (units ( unknown) date) Jean Miles unknown) (unknown) (no (unknown) (unknown) BMI Refused (units (un known) date) unknown) (unknown) (no (unknown) (unknown) BMI Screening: (units (unknown) date) Yes BMI within unknown) normal limits (unknown) (no (unknown) (unknown) Billing- Cerumen (units (unknown) date) Removal: Cerumen unknown) Removal- [id number] (unknown) (no (unknown) (unknown) Cerumen Removal (units (unknown) date) Location: unknown) bilateral (unknown) (no (unknown) (unknown) Cerumen Removal (units (unknown) date) Notes: unknown) (unknown) (no (unknown) (unknown) Chief Complaint: (units (unknown) date) ear wash unknown) (unknown) (no (unknown) (unknown) Code(s): (units (unkno wn) date) unknown) (unknown) (no (unknown) (unknown) Complications: (units (unknown) date) none unknown) (unknown) (no (unknown) (unknown) : 1935 (units (unknown) date) Acct:[id number] unknown) (unknown) (no (unknown) (unknown) Debrox drops for (units (unknown) date) a few days in the unknown) right ear and allows shower water to gently (unknown) (no (unknown) (unknown) Dept at (units (unkno wn) date) . unknown) (unknown) (no (unknown) (unknown) Documented By: (units (unknown) date) Jean Miles V unknown) 06/06/22 1432 (unknown) (no (unknown) (unknown) Draft (units (unkno wn) date) unknown) (unknown) (no (unknown) (unknown) [facility]) (unknown) (no (unknown) (unknown) H61.23 - (units (unkno wn) date) Impacted cerumen, unknown) bilateral (unknown) (no (unknown) (unknown) ITCHING (units (unkno wn) date) unknown) (unknown) (no (unknown) (unknown) Intake performed (units (unknown) date) by: unknown) Adolfo Montilla (unknown) (no (unknown) (unknown) Intake (units (unkno wn) date) unknown) (unknown) (no (unknown) (unknown) Intake- Clincial (units (unknown) date) Staff unknown) (unknown) (no (unknown) (unknown) Loc: [facility] (units (unkno wn) date) unknown) (unknown) (no (unknown) (unknown) [id number] (units (unk nown) date) unknown) (unknown) (no (unknown) (unknown) Method of (units (unkn own) date) removal: Cerum unknown) Loop/Spoon/Curett e and Irrigation (unknown) (no (unknown) (unknown) Note (units (unkno wn) date) unknown) (unknown) (no (unknown) (unknown) Note: (units (unkno wn) date) unknown) (unknown) (no (unknown) (unknown) Nurse Office (units (u nknown) date) Visit unknown) (unknown) (no (unknown) (unknown) Office (units (unkno wn) date) Procedures unknown) (unknown) (no (unknown) (unknown) On initial (units (unk nown) date) inspection, both unknown) ears have a similar appearing piece of dark (unknown) (no (unknown) (unknown) Patient: (units (unkno wn) date) Konrad Barrett unknown) E MR#: (unknown) (no (unknown) (unknown) Pt presents for (units (unknown) date) ear wash, main unknown) concern is left ear due to new onset hearing loss (unknown) (no (unknown) (unknown) Reason For Visit (units (unknown) date) unknown) (unknown) (no (unknown) (unknown) Signed By: (units (unk nown) date) unknown) (unknown) (no (unknown) (unknown) Smoking Status: (units (unknown) date) Former smoker unknown) (unknown) (no (unknown) (unknown) This note may (units ( unknown) date) have been all or unknown) partially generated using voice recognition (unknown) (no (unknown) (unknown) Tobacco Status (units (unknown) date) unknown) (unknown) (no (unknown) (unknown) Using this (units (unk nown) date) method, he can unknown) likely have pretty successful home maintenance. If (unknown) (no (unknown) (unknown) Visit Diagnosis (units (unknown) date) unknown) (unknown) (no (unknown) (unknown) Visit Reasons: (units (unknown) date) Left Ear Cleaning unknown) (unknown) (no (unknown) (unknown) acetaminophen (units ( unknown) date) [From Vicodin] unknown) Adverse Reaction (Severe, Verified 05/11/22 08:40) (unknown) (no (unknown) (unknown) as well with (units (un known) date) lavage, and it unknown) was clear with gentle curretage that the cerumen was (unknown) (no (unknown) (unknown) ear. (units (unkno wn) date) unknown) (unknown) (no (unknown) (unknown) have occurred. (units (unknown) date) If there are any unknown) questions, please contact the Medical Records (unknown) (no (unknown) (unknown) hydrocodone (units (un known) date) [From Vicodin] unknown) Adverse Reaction (Severe, Verified 05/11/22 08:40) (unknown) (no (unknown) (unknown) in that ear. He (units (unknown) date) has been using unknown) Debrox for the past three days in that ear only. (unknown) (no (unknown) (unknown) lavage using (units (u nknown) date) H2O2/water unknown) solution, two fairly large pieces of solid matter (unknown) (no (unknown) (unknown) may occur. (units (unk nown) date) Occasional unknown) wrong-word or 'sound-alike' substitutions may have (unknown) (no (unknown) (unknown) not successful, (units (unknown) date) however, invited unknown) him to schedule another PN visit for the other (unknown) (no (unknown) (unknown) occurred due to (units (unknown) date) the inherent unknown) limitations of voice recognition software. Please (unknown) (no (unknown) (unknown) quite hard and (units (unknown) date) firmly adhered to unknown) the wall of the ear canal. It was agreed that (unknown) (no (unknown) (unknown) read the note (units ( unknown) date) carefully and unknown) recognize, using context, where these substitutions (unknown) (no (unknown) (unknown) reddish-brown (units ( unknown) date) cerumen on the unknown) posterior wall of the ear canal about retirement down (unknown) (no (unknown) (unknown) removed easily (units (unknown) date) with a soft unknown) plastic curette and the ear was essentially clean at (unknown) (no (unknown) (unknown) rinse his ears, (units (unknown) date) that material unknown) will most likely break up very well at home. (unknown) (no (unknown) (unknown) see note (units (unkno wn) date) unknown) (unknown) (no (unknown) (unknown) software. (units (unkn own) date) Although every unknown) effort is made to edit content, student services coordinator errors (unknown) (no (unknown) (unknown) that point. The (units (unknown) date) cerumen in the unknown) right ear, however, did not break up or dissolve (unknown) (no (unknown) (unknown) the canal. The (units (unknown) date) cerumen in the unknown) left ear dissolved and flaked off easily with (unknown) (no (unknown) (unknown) the results (units (un known) date) gained from the unknown) left ear, explained that most likely if pt uses (unknown) (no (unknown) (unknown) the risk of (units (un known) date) damaging the skin unknown) inside pt's ear was not worth the gain. Based on Result panel 40 (unknown) (no (unknown) (unknown) (no value) (units (unk nown) date) unknown) (unknown) (no (unknown) (unknown) (1) Excessive (units ( unknown) date) cerumen in both unknown) ear canals: (unknown) (no (unknown) (unknown) 06/06/22 1558 (units ( unknown) date) unknown) (unknown) (no (unknown) (unknown) 06/06/22 (units (unkno wn) date) unknown) (unknown) (no (unknown) (unknown) Accompanied by: (units (unknown) date) unknown) (unknown) (no (unknown) (unknown) Age/Sex: 86 / M (units (unknown) date) Date of Service: unknown) (unknown) (no (unknown) (unknown) Allergies (units (unkn own) date) unknown) (unknown) (no (unknown) (unknown) ANNETTE Lawton (units ( unknown) date) [id number] unknown) (unknown) (no (unknown) (unknown) Attending Dr: (units ( unknown) date) Jean Miles unknown) (unknown) (no (unknown) (unknown) BMI Refused (units (un known) date) unknown) (unknown) (no (unknown) (unknown) BMI Screening: (units (unknown) date) Yes BMI within unknown) normal limits (unknown) (no (unknown) (unknown) Billing- Cerumen (units (unknown) date) Removal: Cerumen unknown) Removal- (unknown) (no (unknown) (unknown) Cerumen Removal (units (unknown) date) Location: unknown) bilateral (unknown) (no (unknown) (unknown) Cerumen Removal (units (unknown) date) Notes: unknown) (unknown) (no (unknown) (unknown) Chief Complaint: (units (unknown) date) ear wash unknown) (unknown) (no (unknown) (unknown) Code(s): (units (unkno wn) date) unknown) (unknown) (no (unknown) (unknown) Complications: (units (unknown) date) none unknown) (unknown) (no (unknown) (unknown) : 1935 (units (unknown) date) Acct:[id number] unknown) (unknown) (no (unknown) (unknown) Debrox drops for (units (unknown) date) a few days in the unknown) right ear and allows shower water to gently (unknown) (no (unknown) (unknown) Dept at (units (unkno wn) date) . unknown) (unknown) (no (unknown) (unknown) Documented By: (units (unknown) date) Jean Miles V unknownFrancisco SALCEDO 06/06/22 1432 (unknown) (no (unknown) (unknown) [facility]) (unknown) (no (unknown) (unknown) H61.23 - (units (unkno wn) date) Impacted cerumen, unknown) bilateral (unknown) (no (unknown) (unknown) ITCHING (units (unkno wn) date) unknown) (unknown) (no (unknown) (unknown) Intake performed (units (unknown) date) by: unknown) Adolfo Montilla (unknown) (no (unknown) (unknown) Intake (units (unkno wn) date) unknown) (unknown) (no (unknown) (unknown) Intake- Clincial (units (unknown) date) Staff unknown) (unknown) (no (unknown) (unknown) Loc: [facility] (units (unkno wn) date) unknown) (unknown) (no (unknown) (unknown) [id number] (units (unk nown) date) unknown) (unknown) (no (unknown) (unknown) Method of (units (unkn own) date) removal: Cerum unknown) Loop/Spoon/Curett e and Irrigation (unknown) (no (unknown) (unknown) Note (units (unkno wn) date) unknown) (unknown) (no (unknown) (unknown) Note: (units (unkno wn) date) unknown) (unknown) (no (unknown) (unknown) Nurse Office (units (u nknown) date) Visit unknown) (unknown) (no (unknown) (unknown) Office (units (unkno wn) date) Procedures unknown) (unknown) (no (unknown) (unknown) On initial (units (unk nown) date) inspection, both unknown) ears have a similar appearing piece of dark (unknown) (no (unknown) (unknown) Patient: (units (unkno wn) date) Konrad Barrett unknown) E MR#: (unknown) (no (unknown) (unknown) Pt presents for (units (unknown) date) ear wash, main unknown) concern is left ear due to new onset hearing loss (unknown) (no (unknown) (unknown) Reason For Visit (units (unknown) date) unknown) (unknown) (no (unknown) (unknown) Signed By: (units (unk nown) date) <Electronically unknown) signed by Jean Miles MD> (unknown) (no (unknown) (unknown) Signed (units (unkno wn) date) unknown) (unknown) (no (unknown) (unknown) Smoking Status: (units (unknown) date) Former smoker unknown) (unknown) (no (unknown) (unknown) This note may (units ( unknown) date) have been all or unknown) partially generated using voice recognition (unknown) (no (unknown) (unknown) Tobacco Status (units (unknown) date) unknown) (unknown) (no (unknown) (unknown) Using this (units (unk nown) date) method, he can unknown) likely have pretty successful home maintenance. If (unknown) (no (unknown) (unknown) Visit Diagnosis (units (unknown) date) unknown) (unknown) (no (unknown) (unknown) Visit Reasons: (units (unknown) date) Left Ear Cleaning unknown) (unknown) (no (unknown) (unknown) acetaminophen (units ( unknown) date) [From Vicodin] unknown) Adverse Reaction (Severe, Verified 05/11/22 08:40) (unknown) (no (unknown) (unknown) as well with (units (un known) date) lavage, and it unknown) was clear with gentle curretage that the cerumen was (unknown) (no (unknown) (unknown) ay occur. (units (unkn own) date) Occasional unknown) wrong-word or 'sound-alike' substitutions may have (unknown) (no (unknown) (unknown) ear. (units (unkno wn) date) unknown) (unknown) (no (unknown) (unknown) have occurred. (units (unknown) date) If there are any unknown) questions, please contact the Medical Records (unknown) (no (unknown) (unknown) hydrocodone (units (un known) date) [From Vicodin] unknown) Adverse Reaction (Severe, Verified 05/11/22 08:40) (unknown) (no (unknown) (unknown) in that ear. He (units (unknown) date) has been using unknown) Debrox for the past three days in that ear only. (unknown) (no (unknown) (unknown) lavage using (units (u nknown) date) H2O2/water unknown) solution, two fairly large pieces of solid matter (unknown) (no (unknown) (unknown) not successful, (units (unknown) date) however, invited unknown) him to schedule another PN visit for the other (unknown) (no (unknown) (unknown) occurred due to (units (unknown) date) the inherent unknown) limitations of voice recognition software. Please (unknown) (no (unknown) (unknown) quite hard and (units (unknown) date) firmly adhered to unknown) the wall of the ear canal. It was agreed that (unknown) (no (unknown) (unknown) read the note (units ( unknown) date) carefully and unknown) recognize, using context, where these substitutions (unknown) (no (unknown) (unknown) reddish-brown (units ( unknown) date) cerumen on the unknown) posterior wall of the ear canal about retirement down (unknown) (no (unknown) (unknown) removed easily (units (unknown) date) with a soft unknown) plastic curette and the ear was essentially clean at (unknown) (no (unknown) (unknown) rinse his ears, (units (unknown) date) that material unknown) will most likely break up very well at home. (unknown) (no (unknown) (unknown) see note (units (unkno wn) date) unknown) (unknown) (no (unknown) (unknown) software. (units (unkn own) date) Although every unknown) effort is made to edit content, student services coordinator errors m (unknown) (no (unknown) (unknown) that point. The (units (unknown) date) cerumen in the unknown) right ear, however, did not break up or dissolve (unknown) (no (unknown) (unknown) the canal. The (units (unknown) date) cerumen in the unknown) left ear dissolved and flaked off easily with (unknown) (no (unknown) (unknown) the results (units (un known) date) gained from the unknown) left ear, explained that most likely if pt uses (unknown) (no (unknown) (unknown) the risk of (units (un known) date) damaging the skin unknown) inside pt's ear was not worth the gain. Based on Social History date description facility 2022-05-09 00:00 Ex-smoker (finding) [facility] 2022-05-11 00:00 Ex-smoker (finding) [facility] 2022-06-06 00:00 Ex-smoker (finding) [facility] Vital Signs date measurement value units 2022-05-09 00:00 BMI 28.7 kg/m2 2022-05-09 00:00 BP_diastolic 89 mmHg 2022-05-09 00:00 BP_systolic 173 mmHg 2022-05-09 00:00 heart_rate 66 /min 2022-05-09 00:00 height_metric 177.8 cm 2022-05-09 00:00 height_standard 70 in 2022-05-09 00:00 o2_saturation 99 % 2022-05-09 00:00 respiration_rate 18 /min 2022-05-09 00:00 temperature_metric 36.72 C 2022-05-09 00:00 temperature_standard 98.1 F 2022-05-09 00:00 weight_metric 90.71 kg 2022-05-09 00:00 weight_standard 199.98 lb 2022-05-11 00:00 BMI 27.9 kg/m2 2022-05-11 00:00 BP_diastolic 70 mmHg 2022-05-11 00:00 BP_systolic 150 mmHg 2022-05-11 00:00 heart_rate 81 /min 2022-05-11 00:00 height_metric 177.8 cm 2022-05-11 00:00 height_standard 70 in 2022-05-11 00:00 o2_saturation 98 % 2022-05-11 00:00 weight_metric 88.45 kg 2022-05-11 00:00 weight_standard 195 lb
[2022-07-22 01:22] LABS: ALBUMIN 3.9 g/dL (3.2-5.5); ALBUMIN/GLOBULIN RATIO 1.2 (1.0-2.2); BILIRUBIN,TOTAL 0.6 mg/dL (0.2-1.0); CALCIUM 8.6 mg/dL (8.5-10.3); CREATININE 1.6 mg/dL (0.6-1.2); POTASSIUM 3.7 mmol/L (3.5-5.0); TOTAL PROTEIN 7.1 g/dL (6.7-8.2)
--- NOTE | 2022-07-22 01:25 | CT Report ---
PROCEDURE: Head W/O Stroke Protocol INDICATIONS: Neuro deficit, acute, stroke suspected TECHNIQUE: Noncontrast 4.5 mm thick angled axial sections acquired from the foramen magnum to the vertex, with c oronal reformats. For radiation dose reduction, the following was used: automated exposure control, adjustment of mA and/or kV according to patient size. COMPARISON: FINDINGS: Image quality: Excellent. CSF spaces: Basal cisterns are patent. No extra-axial fluid collections. Ventricles are normal in size and shape. Brain: No midline shift. No intracranial masses or hemorrhage. Carbajal-white matter interface is norm al. Skull and face: Calvarium and visualized facial bones are intact, without suspicious lesions. Sinuses: Visualized sinuses and mastoids are clear. IMPRESSION: Normal for age, no evidence for presence of mass, stroke, or hemorrhage. This study fulfills neurological imaging criteria for inclusion or exclusion of acute stroke therapie s based on available published neurological imaging guidelines. Reviewed by: Rubén Russell MD on 07/22/2022 1:24 AM PDT Approved by: Rubén Russell MD on 07/22/2022 1:24 AM PDT Station ID: [id number]
[2022-07-22 01:26] LABS: INR 1.1 (0.8-1.2); PT - PROTHROMBIN TIME 12.3 secs (9.9-12.6)
[2022-07-22] MEDS ORDERED: iohexoL-300 100 ML VIAL IVP ONE (01:27)
--- NOTE | 2022-07-22 01:36 | ED Physician Documentation ---
PD HPI FOCAL NEURO - Stated complaint Stated Complaint: RT ARM AND LEG WEAKNESS - Chief complaint Chief Complaint: Neuro - History obtained from History obtained from: Patient, Family, EMS - Additional information Additional information: And is an 86-year-old male presenting for evaluation of right-sided weakness noticed around 1219PM. He was last known normal approximately 1 hour prior to this. Patient reports that he was sitting watching TV and went to change the channel and was unable to use his right arm. He tried to stand up and also noted inability to use his right leg. EMS was then called. Patient has since regained function of his right arm. Denies headache, fall, use of blood thinners other than baby aspirin, difficulty speaking or swallowing, recent chest pain or difficulty breathing.Glucose is 197. Review of Systems Constitutional: denies: Fever Cardiac: denies: Chest pain / pressure Respiratory: denies: Dyspnea Musculoskeletal: denies: Back pain Neurologic: reports: Focal weakness PD PAST MEDICAL HISTORY - Allergies Allergies/Adverse Reactions: Allergies Allergy/AdvReac Type Severity Reaction Status Date / Time acetaminophen [From Vicodin] Allergy Itching Verified 07/22/22 01:22 hydrocodone [From Vicodin] Allergy Itching Verified 07/22/22 01:22 PD ED PE NORMAL - General General: Alert and oriented X 3, No acute distress, Well developed/nourished - HEENT HEENT: Atraumatic, PERRL, EOMI, Moist mucous membranes, Pharynx benign (Tongue is midline) - Neck Neck: Supple, no meningeal sign - Cardiac Cardiac: Strong equal pulses, Other (Irregularly irregular) - Respiratory Respiratory: No respiratory distress, Clear bilaterally - Abdomen Abdomen: Soft, Non tender, Non distended - Derm Derm: Warm and dry - Neuro Neuro: Alert and oriented X 3, home health aide 2-12 intact, No sensory deficit, Normal speech, Other (R arm drift; No effort of R leg against gravity). No: No motor deficit NIHSS - Time Time: 01:35 - Level of Consciousness Level of consciousness: (0) Alert, Keenly responsive LOC Questions: (0) Answers both Q's correct LOC Commands: (0) Performs both correctly - Gaze Best Gaze: (0) Normal - Visual Visual: (0) No loss - Facial Palsy Facial Palsy: (0) Normal, symmetrical movement - Motor Arms (both separate) Motor Arm (right): (1) Drift Motor Arm (left): (0) No drift - Motor Legs (both separate) Motor Leg (right): (3) No effort against gravity Motor Leg (left): (0) No drift - Limb Ataxia Limb Ataxia: (1) Present in 1 limb - Sensory Sensory: (0) Normal - Best Language Best Language: (0) No aphasia - Dysarthria Dysarthria: (0) Normal - Extinction and Inattention (formally neg Extinction and inattention: (0) No abnormality - Total Score/Results Total Score/Result: 5 Results - Vitals Vitals: Vital Signs - 24 hr 07/22/22 07/22/22 07/22/22 01:09 01:22 01:26 Temperature 36.9 C Heart Rate 79 86 Respiratory 20 13 Rate Blood Pressure 172/63 H 181/63 H 164/61 H O2 Saturation 98 99 07/22/22 07/22/22 07/22/22 01:53 01:56 02:04 Temperature Heart Rate 77 74 68 Respiratory 18 15 19 Rate Blood Pressure 173/84 H 173/84 H 175/70 H O2 Saturation 97 96 95 07/22/22 07/22/22 02:27 02:46 Temperature Heart Rate 68 72 Respiratory 13 17 Rate Blood Pressure 176/70 H 172/81 H O2 Saturation 96 99 Oxygen O2 Source Room air - EKG (time done) 0102 EKG releavant findings:: EKG personally interpreted by author of this note. Relevant findings are: Rate 69, atrial fibrillation, right bundle branch block, no STEMI, no previous for comparison Rate: Rate (enter#) (69) Rhythm: Atrial fibrillation Intervals: RBBB Ischemia: No: ST elevation c/w ischemia Compare to prior EKG: Old EKG unavailable - Labs Labs: Laboratory Tests 07/22/22 07/22/22 07/22/22 01:00 01:00 01:00 WBC 8.7 RBC 3.66 L Hgb 11.5 L Hct 34.5 L MCV 94.3 H MCH 31.4 H MCHC 33.3 RDW 13.1 Plt Count 130 MPV 13.4 H Neut # (Auto) 5.6 Lymph # (Auto) 1.7 Knox # (Auto) 1.0 Eos # (Auto) 0.2 Baso # (Auto) 0.0 Absolute Nucleated RBC 0.00 Nucleated RBC % 0.0 PT 12.3 INR 1.1 Sodium 135 Potassium 3.7 Chloride 103 Carbon Dioxide 23 Anion Gap 9.0 BUN 30 H Creatinine 1.6 H Estimated GFR (MDRD) 41 L Glucose 197 H Calcium 8.6 Total Bilirubin 0.6 AST 20 ALT 20 Alkaline Phosphatase 50 Total Protein 7.1 Albumin 3.9 Globulin 3.2 Albumin/Globulin Ratio 1.2 Lipase 48 SARS-CoV-2 (PCR) 07/22/22 01:00 WBC RBC Hgb Hct MCV MCH MCHC RDW Plt Count MPV Neut # (Auto) Lymph # (Auto) Knox # (Auto) Eos # (Auto) Baso # (Auto) Absolute Nucleated RBC Nucleated RBC % PT INR Sodium Potassium Chloride Carbon Dioxide Anion Gap BUN Creatinine Estimated GFR (MDRD) Glucose Calcium Total Bilirubin AST ALT Alkaline Phosphatase Total Protein Albumin Globulin Albumin/Globulin Ratio Lipase SARS-CoV-2 (PCR) NOT DETECTED PD Medical Decision Making - ED course Complexity details: reviewed results, re-evaluated patient, d/w patient, d/w family ED course: Patient presenting for evaluation of right-sided weakness that started this evening. He was seen immediately upon arrival - Concern for stroke given ongoing weakness on the right. Patient sent immediately for CT head and angios. He has had some improvement in strength in the right arm from onset but remains very weak in the right leg with an NIH of 5. He appears to have new onset atrial fibrillation. His blood pressure is elevated but does not require rapid lowering at this time. Patient was seen by telestroke who agrees with our assessment with concerns for acute CVA. There is no large vessel occlusion or intracranial hemorrhage seen on CTs.I have also reviewed these images. No contraindications for thrombolytic and patient did consent for tenecteplase. I discussed the case with Dr. Montaño, neuro ICU at [facility] who graciously agrees to accept the patient for transfer. Patient did not have significant change in his NIH score while in the emergency department. Labs were also reviewed No prior for comparison. Mild elevation in creatinine to 1.6. Unclear what patient's baseline is.Mild anemia with hemoglobin of 11.5. Again unclear what his baseline is. was present during his ED course and was also updated. - Critical Care Time(min): 35 Departure - Departure Disposition: 02 Transfer Acute Care Hosp Clinical Impression: Cerebrovascular accident (CVA), New onset atrial fibrillation Condition: Fair Discharge Date/Time: 07/22/22 03:30
[2022-07-22] MEDS ORDERED: TENECTEPLASE 50 MG/10 ML VIAL IVP STA (01:40)
--- NOTE | 2022-07-22 01:47 | CT Report ---
PROCEDURE: ANGIO HEAD W/WO INDICATIONS: R sided weakness CONTRAST: 100 ML OMNI 300 AT 4 ML/SEC TECHNIQUE: Precontrast 4.5 mm thick angled axial sections acquired from the foramen magnum to the vertex. Afte r the administration of intravenous contrast, 1 mm thick sections acquired through the [place] is. Postcontrast 4.5 mm thick sections then re-acquired from the foramen magnum to the vertex. 3-di mensional hkvpsdf-hndjlsoeh-mjskyperwq (MIP) and/or volume rendering reformats were acquired of the c entral intracranial vasculature. For radiation dose reduction, the following was used: automated ex posure control, adjustment of mA and/or kV according to patient size. COMPARISON: Head CT without contrast same day. FINDINGS: Image quality: Excellent. Anterior circulation: Intracranial internal carotid arteries are normal in size and flow. The flow within the paired anterior cerebral arteries is normal and symmetric. The flow within the middle cer ebral arteries is normal and symmetric. The anterior communicating artery is seen. No aneurysms are seen. Posterior circulation: Visualized portions of the vertebral arteries demonstrate normal caliber, and join to form a normal appearing basilar artery. Flow within the posterior cerebral arteries is norm al and symmetric. No aneurysms are seen. CSF spaces: Ventricles are normal in size and shape. Basal cisterns are patent. No extra-axial flu id collections. Brain: No midline shift. No intracranial bleeds or masses. Carbajal-white matter interface appears int act. Skull and face: Calvarium and facial bones appear intact, without suspicious lesions. Sinuses: Visualized sinuses and mastoids are clear. IMPRESSION: Normal intracranial angiogram. No sign of occlusion or embolic disease. Reviewed by: Rubén Russell MD on 07/22/2022 1:46 AM PDT Approved by: Rubén Russell MD on 07/22/2022 1:46 AM PDT Station ID: [id number]
--- NOTE | 2022-07-22 01:51 | CT Report ---
PROCEDURE: ANGIO NECK W INDICATIONS: R sided weakness CONTRAST: 100 ML OMNI 300 AT 4 ML/SEC TECHNIQUE: After the administration of intravenous contrast, 1.5 mm axial sections acquired from the aortic arch to the [place]. Coronal 3-D maximum intensity projection (MIP) and/or volume rendering ref ormats were then performed. For radiation dose reduction, the following was used: automated exposur e control, adjustment of mA and/or kV according to patient size. COMPARISON: Intracranial CT angiogram same day reviewed.. FINDINGS: Image quality: Excellent. Carotid system: The great vessels demonstrate a conventional anatomy as they arise from the aortic a [facility]. The origins of the common carotid arteries appear patent. The common carotid arteries demonstr ate normal calibers and courses. The bifurcation regions appear involved by atherosclerotic calcific plaquing bilaterally right greater than left, with minimal stenosis of the origin of the left [facility] al carotid artery and approximately 50% stenosis on the right. The internal carotid arteries demonst rate normal caliber and course. Posterior circulation: The origins of the vertebral arteries appear patent. The more superior porti ons of the vertebral arteries demonstrate normal course and caliber. They join to form a normal appe aring basilar artery. Soft tissues: Visualized neck soft tissues demonstrate no suspicious abnormalities. The thyroid is normal in size and there are no incidental findings. Bones: No suspicious bony lesions. Visualized cervical spine appears normally aligned. 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 The estimate of stenosis included in the report of the imaging study was calculated using the NASCET method CLINICAL RECOMMENDATION STATEMENTS: In patients <35 years with an ITN detected on CT, MRI, or extrathyroidal ultrasound, the Committee re commends further evaluation with dedicated thyroid ultrasound if the nodule is "e1 cm and has no susp icious imaging features, and if the patient has normal life expectancy. In patients "e35 years with an ITN detected on CT, MRI, or extrathyroidal ultrasound, the Committee r ecommends further evaluation with dedicated thyroid ultrasound if the nodule is "e1.5 cm and has no s uspicious imaging features, and if the patient has normal life expectancy. (ACR, 2014) Reviewed by: Rubén Russell MD on 07/22/2022 1:50 AM PDT Approved by: Rubén Russell MD on 07/22/2022 1:50 AM PDT Station ID: [id number]
[2022-07-22 02:47] VITALS: BP 172/81
== END 2022-07-22 03:30 | disposition short-term general hospital (02) ==
LOC: EDUNIT# → ED 00:56
DX: I63.89 Other cerebral infarction (principal); G81.91 Hemiplegia, unspecified affecting right dominant side; R29.810 Facial weakness; R29.705 NIHSS score 5; Z20.822 Contact with and (suspected) exposure to COVID-19
CPT/HCPCS: 36415; 37195; 70450; 70496; 70498; 80053; 83690; 85025; 85610; 87635; 93005; 99291; J3101; Q9967